=== PATIENT | female | born 1945 | race Caucasian/White ===

== ENCOUNTER → 2016-05-02 | Outpatient (CLI) | payer MEDICARE, OTHER ==
[~2016-05-02] MED LIST: CEPH-507 PO; EST30C; FLT11013; MONT10TA24; OMEP40CA36; VERA240T98; WARF-48
--- OUTSIDE RECORDS SUMMARY | 2016-05-02 12:33 | XMS REPORT | Continuity of Care Document ---
Author Author [facility] Organization [facility] Address Unknown Phone Unavailable Support Name Relationship Address Phone LIZ DELATORRE MD Caregiver [address] [place] [address] STACY IBARRA Next Of Kin [address] [facility] [place] [id number] Insurance Providers Payer Name Policy Number Subscriber Name Relationship s Medicare [id number] Pablo Ibarra 16 Self / Same As Patient Problems No known problems or medical conditions. Medications No known medications. Social History Social History Problem Response Recorded Date/Time Recent Foreign Travel N N 02/02/2014 11:45am Hospital Discharge Instructions No hospital discharge instructions. Plan of Care No plan of care. Functional Status No functional status results. Allergies, Adverse Reactions, Alerts No known allergies. Immunizations No immunization records. Vital Signs No known vital signs results. Results Laboratory Results Test Name Result Units Flags Reference Collection Date/Time Result Date/ Time Comments Prothrombin Time 24.5 SEC H 12.2-14.7 02/02/2014 11:45am 02/02/2014 12: 03pm INR Comment 2.3 H 0.8-1.4 02/02/2014 11:45am 02/02/2014 12:03pm INTERPRETIVE DATA SUGGESTED THERAPEUTIC RANGE FOR INR'S: VENOUS THROMBOSIS, PULMONARY EMBOLISM, OR PREVENTION OF SYSTEMIC EMBOLISM (EG. IN ATRIAL FIBRILLATION): 2.0 - 3.0 MECHANICAL PROSTHETIC HEART VALVES: 2.5 - 3.5* *NOTE: INR'S UP TO 4.5 MAY BE NECESSARY IN SELECTED GROUPS OF HIGH RISK PATIENTS. [employer] CONSENSUS CONFERENCE ON ANTITHROMBOTIC THERAPY (2000). Procedures No known history of procedures. Encounters Encounter Location Date/Time Discharged Recurring Via [facility] 02/02/14 11:44am
[2016-05-02 12:58] LABS: INR 2.4 (0.8-1.4); PROTHROMBIN TIME PATIENT 25.7 SEC (12.2-14.7)
== END ==
LOC: LAB 12:29
PROVIDERS: ATTEND Physician Assistant Medical
DX: I48.91 Unspecified atrial fibrillation (principal)
CPT/HCPCS: 36415; 85610

== ENCOUNTER 2016-08-13 10:15 | Outpatient (RCR) | payer MEDICARE, OTHER ==
--- OUTSIDE RECORDS SUMMARY | 2016-05-22 11:23 | XMS REPORT | Continuity of Care Document ---
Author Author [facility] Organization [facility] Address Unknown Phone Unavailable Support Name Relationship Address Phone LIZ DELATORRE MD Caregiver [address] [place] [address] STACY IBARRA Next Of Kin [address] [facility] [facility] [place] [id number] Insurance Providers Payer Name Policy Number Subscriber Name Relationship s Medicare [id number] Pablo Ibarra 16 Self / Same As [...] SELECTED GROUPS OF HIGH RISK PATIENTS. [employer] CONSENSUS CONFERENCE ON ANTITHROMBOTIC THERAPY (2000). Procedures No known history of procedures. Encounters Encounter Location Date/Time Discharged Recurring [facility] 02/02/14 11:44am
[2016-05-22 11:41] LABS: INR 2.1 (0.8-1.4); PROTHROMBIN TIME PATIENT 22.9 SEC (12.2-14.7)
[2016-06-13 10:37] LABS: INR 2.8 (0.8-1.4); PROTHROMBIN TIME PATIENT 29.7 SEC (12.2-14.7)
[2016-07-18 10:12] LABS: INR 2.3 (0.8-1.4); PROTHROMBIN TIME PATIENT 25.3 SEC (12.2-14.7)
[2016-08-13 10:33] LABS: PROTHROMBIN TIME PATIENT 30.9 SEC (12.2-14.7)
== END 2016-08-20 | disposition home or self-care (01) ==
LOC: LAB 10:15
PROVIDERS: ATTEND Internal Medicine Cardiovascular Disease
DX: Z86.73 Personal history of transient ischemic attack (TIA), and cerebral infarction without residual deficits (principal); Z79.01 Long term (current) use of anticoagulants
CPT/HCPCS: 36415; 85610

== ENCOUNTER → 2016-10-10 | Outpatient (CLI) | payer MEDICARE, OTHER ==
--- NOTE | 2016-10-10 19:34 | Diagnostic Imaging Report ---
Bilateral screening mammogram. The current study was also evaluated with a Computer Aided Detection (CAD) system. INDICATION: Screening. No current complaints stated on the questionnaire. COMPARISON: 10/05/15 FINDINGS: The breasts are composed of heterogeneously dense parenchyma which may decrease mammographic sensitivity. Benign-appearing calcifications are seen. Allowing for technique and positional differences, no suspicious change is seen. IMPRESSION: Dense breasts with no definite change. ACR BI-RADS Category 2: Benign findings. Result letter will be mailed to the patient. Note: At least 10% of breast cancer is not imaged by mammography. Dictated by: Dictated on workstation # [id number]
== END ==
LOC: RAD 09:07
PROVIDERS: ATTEND Nurse Practitioner
DX: Z12.31 Encounter for screening mammogram for malignant neoplasm of breast (principal)
CPT/HCPCS: 77067

== ENCOUNTER → 2017-07-16 | Outpatient (CLI) | payer MEDICARE, OTHER ==
--- NOTE | 2017-07-16 11:13 | Diagnostic Imaging Report ---
Indication: Cough Comparison: 03/21/16 Findings: 2 views of the chest are obtained. Heart size is normal. The pulmonary vessels appear unremarkable. There is no pneumothorax, mediastinal widening or pleural fluid. The lungs are clear. Diaphragms are flattened suggestive of COPD. There are degenerative changes in the spine. Impression: No acute cardiopulmonary abnormalities demonstrated. No interval change from the prior study. Dictated by: Dictated on workstation # [id number]
== END ==
LOC: RAD 09:53
PROVIDERS: ATTEND Internal Medicine
DX: R05 Cough (principal)
CPT/HCPCS: 71046

== ENCOUNTER 2017-09-03 10:55 | Emergency (ER) | payer MEDICARE, OTHER ==
[~2017-09-03] VITALS: Ht 154.9 cm; Wt 56.7 kg
--- OUTSIDE RECORDS SUMMARY | 2017-09-03 11:02 | XMS REPORT | Continuity of Care Document ---
Author Author [facility] Organization [facility] Address Unknown Phone Unavailable Allergies Active Description Code Type Severity Reaction Onset Reported/Identified Relationship to Patient Clinical Status Yes NO KNOWN DRUG ALLERGIES NO KNOWN DRUG ALLERG UNKNOWN Yes No Known Drug Allergies [id number] Drug Allergy Unknown N/A 10/22/2015 Yes CONTRAST DYE CONTRAST DYE Drug Allergy Moderate HEART RACING 05/13/2016 Yes epinephrine epinephrine Drug Allergy Moderate HEART RACING 05/13/2016 Yes No Known Allergies No Known Allergies Drug Allergy Unknown N/A 2016 Medications There is no data. Problems Date Dx Coded Attending Type Code Diagnosis Diagnosed By 12/03/2009 Ot V58.61 12/03/2009 Ot V58.83 03/11/2010 Ot V58.61 03/11/2010 Ot V58.83 07/15/2010 Ot V58.61 ANTICOAGULANTS,LT,CURRENT USE 07/15/2010 Ot V58.83 ENCOUNTER FOR THERAPEUTIC DRUG MONITORIN 10/15/2010 Ot V58.61 ANTICOAGULANTS,LT,CURRENT USE 10/15/2010 Ot V58.83 ENCOUNTER FOR THERAPEUTIC DRUG MONITORIN 01/20/2011 Ot V58.61 ANTICOAGULANTS,LT,CURRENT USE 01/20/2011 Ot V58.83 ENCOUNTER FOR THERAPEUTIC DRUG MONITORIN 05/21/2011 Ot V58.61 ANTICOAGULANTS,LT,CURRENT USE 05/21/2011 Ot V58.83 ENCOUNTER FOR THERAPEUTIC DRUG MONITORIN 09/01/2011 Ot V58.61 ANTICOAGULANTS,LT,CURRENT USE 09/01/2011 Ot V58.83 ENCOUNTER FOR THERAPEUTIC DRUG MONITORIN 12/30/2011 Ot V58.61 ANTICOAGULANTS,LT,CURRENT USE 12/30/2011 Ot V58.83 ENCOUNTER FOR THERAPEUTIC DRUG MONITORIN 05/21/2012 Ot V58.61 ANTICOAGULANTS,LT,CURRENT USE 05/21/2012 Ot V58.83 ENCOUNTER FOR THERAPEUTIC DRUG MONITORIN 08/23/2012 NANDINI OSORIO, LIZ Cornejo Ot V58.61 ANTICOAGULANTS,LT,CURRENT USE 08/23/2012 GALICHIA MD, LIZ P Ot V58.83 ENCOUNTER FOR THERAPEUTIC DRUG MONITORIN 12/25/2012 NANDINI OSORIO, LIZ P Ot V58.61 ANTICOAGULANTS,LT,CURRENT USE 12/25/2012 NANDINI OSORIO, LIZ P Ot V58.83 ENCOUNTER FOR THERAPEUTIC DRUG MONITORIN 04/13/2013 NANDINI OSORIO, LIZ P Ot V58.61 ANTICOAGULANTS,LT,CURRENT USE 04/13/2013 NANDINI OSORIO, LIZ P Ot V58.83 ENCOUNTER FOR THERAPEUTIC DRUG MONITORIN 09/08/2013 NANDINI OSORIO, LIZ P Ot V58.61 ANTICOAGULANTS,LT,CURRENT USE 09/08/2013 NANDINI OSORIO, LIZ P Ot V58.83 ENCOUNTER FOR THERAPEUTIC DRUG MONITORIN 01/31/2014 NANDINI OSORIO, LIZ P Ot V58.61 ANTICOAGULANTS,LT,CURRENT USE 01/31/2014 NANDINI OSORIO, LIZ P Ot V58.83 ENCOUNTER FOR THERAPEUTIC DRUG MONITORIN 05/03/2014 NANDINI OSORIO, LIZ P Ot V58.61 ANTICOAGULANTS,LT,CURRENT USE 05/03/2014 NANDINI OSORIO, LIZ P Ot V58.83 ENCOUNTER FOR THERAPEUTIC DRUG MONITORIN 05/13/2014 NANDINI OSORIO, LIZ P Ot V58.61 05/13/2014 NANDINI OSORIO, LIZ P Ot V58.83 05/16/2014 NANDINI OSORIO, LIZ P Ot V58.61 05/16/2014 NANDINI OSORIO, LIZ P Ot V58.83 05/18/2014 NANDINI OSORIO, LIZ P Ot V58.61 05/18/2014 NANDINI OSORIO, LIZ P Ot V58.83 06/09/2014 NANDINI OSORIO, LIZ P Ot V58.61 06/09/2014 NANDINI SOORIO, LIZ P Ot V58.83 08/11/2014 NANDINI OSORIO, LIZ P Ot V58.61 ANTICOAGULANTS,LT,CURRENT USE 08/11/2014 NANDINI OSORIO, LIZ P Ot V58.83 ENCOUNTER FOR THERAPEUTIC DRUG MONITORIN 08/30/2014 NANDINI OSORIO, LIZ P Ot V58.61 08/30/2014 NANDINI OSORIO, LIZ P Ot V58.83 08/31/2014 NANDINI OSORIO, LIZ P Ot V58.61 08/31/2014 NANDINI OSORIO, LIZ P Ot V58.83 08/31/2014 NANDINI OSORIO, LIZ P Ot V58.61 08/31/2014 NANDINI OSORIO, LIZ P Ot V58.83 09/15/2014 CRISTOBAL OSORIO, DOROTHY Zhao Ot V76.12 10/05/2014 NANDINI OSORIO, LIZ Cornejo Ot V58.61 10/05/2014 NANDNII OSORIO, LIZ P Ot V58.83 10/05/2014 DOROTHY JAIN MD Ot V76.12 11/22/2014 NANDINI OSORIO, LIZ Cornejo Ot V58.61 11/22/2014 NANDINI OSORIO, LIZ P Ot V58.83 11/28/2014 NANDINI OSORIO, LIZ P Ot V58.61 ANTICOAGULANTS,LT,CURRENT USE 11/28/2014 NANDINI OSORIO, LIZ P Ot V58.83 ENCOUNTER FOR THERAPEUTIC DRUG MONITORIN 01/10/2015 NANDINI OSORIO, LIZ P Ot V58.61 01/10/2015 NANDINI OSORIO, LIZ P Ot V58.83 01/10/2015 NANDINI OSORIO, LIZ P Ot V58.61 01/10/2015 NANDINI OSORIO, LIZ P Ot V58.83 01/10/2015 NANDINI OSORIO, LIZ Cornejo Ot Z51.81 01/10/2015 NANDINI OSORIO, LIZ P Ot Z79.01 01/10/2015 NANDINI OSORIO, LIZ P Ot V58.61 01/10/2015 NANDINI OSORIO, LIZ P Ot V58.83 01/11/2015 LIZ DELATORRE MD Ot V58.61 ANTICOAGULANTS,LT,CURRENT USE 01/11/2015 NANDINI OSORIO, LIZ P Ot V58.83 ENCOUNTER FOR THERAPEUTIC DRUG MONITORIN 02/20/2015 Ot V76.12 02/20/2015 Ot V76.12 02/20/2015 Ot V76.12 02/20/2015 IVÁN OSORIO, ALBINA Jo Ot 789.04 02/20/2015 ALBINA MINOR MD Ot 793.82 02/20/2015 ALBINA MINOR MD Ot V76.12 02/20/2015 DOROTHY JAIN MD Ot V76.12 02/20/2015 LIZ DELATORRE MD P Ot V58.61 02/20/2015 NANDINI OSORIO, LIZ P Ot V58.83 02/21/2015 NANDINI OSORIO, LIZ P Ot Z51.81 02/21/2015 LIZ DELATORRE MD Ot Z79.01 04/06/2015 NANDINI OSORIO, LIZ P Ot Z51.81 04/06/2015 LIZ DELATORRE MD Ot Z79.01 05/21/2015 LIZ DELATORRE MD Ot Z51.81 ENCOUNTER FOR THERAPEUTIC DRUG LEVEL MON 05/21/2015 LIZ DELATORRE MD Ot Z79.01 BINDERY MACHINE SETTER (CURRENT) USE OF ANTICOAGULANT 06/12/2015 LIZ DELATORRE MD Ot Z51.81 06/12/2015 LIZ DELATORRE MD Ot Z79.01 06/13/2015 LIZ DELATORRE MD Ot Z51.81 06/13/2015 LIZ DELATORRE MD Ot Z79.01 08/02/2015 LIZ DELATORRE MD Ot Z51.81 ENCOUNTER FOR THERAPEUTIC DRUG LEVEL MON 08/02/2015 LIZ DELATORRE MD Ot Z79.01 MCC (CURRENT) USE OF ANTICOAGULANT 09/10/2015 LIZ DELATORRE MD Ot Z51.81 ENCOUNTER FOR THERAPEUTIC DRUG LEVEL MON 09/10/2015 LIZ DELATORRE MD Ot Z79.01 BINDERY MACHINE SETTER (CURRENT) USE OF ANTICOAGULANT 09/12/2015 LIZ DELATORRE MD Ot Z51.81 ENCOUNTER FOR THERAPEUTIC DRUG LEVEL MON 09/12/2015 LIZ DELATORRE MD Ot Z79.01 BINDERY MACHINE SETTER (CURRENT) USE OF ANTICOAGULANT 10/05/2015 Ot V76.12 OTH SCREEN MAMMO-MALIGN NEOPLASM OF TRAVIS 10/05/2015 Ot V76.12 OTH SCREEN MAMMO-MALIGN NEOPLASM OF TRAVIS 10/05/2015 IVÁN OSORIO, ALBINA Jo Ot 789.04 ABDOMINAL PAIN, LEFT LOWER QUADRANT 10/05/2015 IVÁN OSORIO, ALBINA Jo Ot 793.82 INCONCLUSIVE MAMMOGRAM 10/05/2015 ALBINA MINOR MD Ot V76.12 OTH SCREEN MAMMO-MALIGN NEOPLASM OF TRAVIS 10/05/2015 DOROTHY JAIN MD Ot V76.12 OTH SCREEN MAMMO-MALIGN NEOPLASM OF TRAVIS 10/05/2015 LIZ DELATORRE MD Ot Z51.81 ENCOUNTER FOR THERAPEUTIC DRUG LEVEL MON 10/05/2015 LIZ DELATORRE MD Ot Z79.01 MCC (CURRENT) USE OF ANTICOAGULANT 10/05/2015 LIZ DELATORRE MD Ot Z51.81 ENCOUNTER FOR THERAPEUTIC DRUG LEVEL MON 10/05/2015 LIZ DELATORRE MD Ot Z79.01 BINDERY MACHINE SETTER (CURRENT) USE OF ANTICOAGULANT 10/05/2015 LIZ DELATORRE MD Ot Z51.81 ENCOUNTER FOR THERAPEUTIC DRUG LEVEL MON 10/05/2015 ILZ DELATORRE MD Ot Z79.01 BINDERY MACHINE SETTER (CURRENT) USE OF ANTICOAGULANT 10/06/2015 DOROTHY JAIN MD Ot Z12.31 ENCNTR SCREEN MAMMOGRAM FOR MALIGNANT NE 10/11/2015 DOROTHY JAIN MD Ot Z12.31 ENCNTR SCREEN MAMMOGRAM FOR MALIGNANT NE 10/22/2015 MACHO DO, ARSLAN K Ot I48.2 CHRONIC ATRIAL FIBRILLATION 10/22/2015 MACHO DO, ARSLAN K Ot R04.0 EPISTAXIS 10/22/2015 MACHO DO, ARSLAN K Ot Z79.01 MCC (CURRENT) USE OF ANTICOAGULANT 10/22/2015 Ot V76.12 OTH SCREEN MAMMO-MALIGN NEOPLASM OF TRAVIS 10/22/2015 Ot V76.12 OTH SCREEN MAMMO-MALIGN NEOPLASM OF TRAVIS 10/22/2015 IVÁN OSORIO, ALBINA Jo Ot 789.04 ABDOMINAL PAIN, LEFT LOWER QUADRANT 10/22/2015 IVÁN OSORIO, ALBINA Jo Ot 793.82 INCONCLUSIVE MAMMOGRAM 10/22/2015 IVÁN OSORIO, ALBINA Jo Ot V76.12 OTH SCREEN MAMMO-MALIGN NEOPLASM OF TRAVIS 10/22/2015 DOROTHY JAIN MD Ot V76.12 OTH SCREEN MAMMO-MALIGN NEOPLASM OF TRAVIS 10/22/2015 LIZ DELATORRE MD Ot Z51.81 ENCOUNTER FOR THERAPEUTIC DRUG LEVEL MON 10/22/2015 LIZ DELATORRE MD Ot Z79.01 BINDERY MACHINE SETTER (CURRENT) USE OF ANTICOAGULANT 10/22/2015 DOROTHY JAIN MD Ot Z12.31 ENCNTR SCREEN MAMMOGRAM FOR MALIGNANT NE 10/24/2015 MACHO , ARSLAN K Ot I48.2 CHRONIC ATRIAL FIBRILLATION 10/24/2015 MACHO DO, ARSLAN K Ot R04.0 EPISTAXIS 10/24/2015 MACHO , ARSLAN K Ot Z79.01 BINDERY MACHINE SETTER (CURRENT) USE OF ANTICOAGULANT 10/25/2015 DOROTHY JAIN MD Ot Z12.31 ENCNTR SCREEN MAMMOGRAM FOR MALIGNANT NE 11/24/2015 LIZ DELATORRE MD Ot Z51.81 ENCOUNTER FOR THERAPEUTIC DRUG LEVEL MON 11/24/2015 GALICHIA MD, LIZ P Ot Z79.01 MCC (CURRENT) USE OF ANTICOAGULANT 12/14/2015 NANDINI OSORIO LIZ P Ot Z51.81 ENCOUNTER FOR THERAPEUTIC DRUG LEVEL MON 12/14/2015 NANDINI OSORIO LIZ P Ot Z79.01 BINDERY MACHINE SETTER (CURRENT) USE OF ANTICOAGULANT 01/03/2016 LIZ DELATORRE MD P Ot Z51.81 ENCOUNTER FOR THERAPEUTIC DRUG LEVEL MON 01/03/2016 LIZ DELATORRE MD P Ot Z79.01 BINDERY MACHINE SETTER (CURRENT) USE OF ANTICOAGULANT 01/04/2016 LIZ DELATORRE MD P Ot Z51.81 ENCOUNTER FOR THERAPEUTIC DRUG LEVEL MON 01/04/2016 NANDINI OSORIO LIZ P Ot Z79.01 BINDERY MACHINE SETTER (CURRENT) USE OF ANTICOAGULANT 01/10/2016 LIZ DELATORRE MD P Ot Z51.81 ENCOUNTER FOR THERAPEUTIC DRUG LEVEL MON 01/10/2016 NANDINI OSORIO LIZ P Ot Z79.01 BINDERY MACHINE SETTER (CURRENT) USE OF ANTICOAGULANT 01/10/2016 LIZ DELATORRE MD P Ot Z51.81 ENCOUNTER FOR THERAPEUTIC DRUG LEVEL MON 01/10/2016 LIZ DELATORRE MD P Ot Z79.01 MCC (CURRENT) USE OF ANTICOAGULANT 01/22/2016 NANDINI OSORIO LIZ P Ot Z51.81 ENCOUNTER FOR THERAPEUTIC DRUG LEVEL MON 01/22/2016 NANDINI OSORIO LIZ P Ot Z79.01 BINDERY MACHINE SETTER (CURRENT) USE OF ANTICOAGULANT 02/08/2016 LIZ DELATORRE MD P Ot Z51.81 ENCOUNTER FOR THERAPEUTIC DRUG LEVEL MON 02/08/2016 NANDINI OSORIO LIZ P Ot Z79.01 MCC (CURRENT) USE OF ANTICOAGULANT 02/08/2016 CLARITA MERCEDES GAS METER PROVER Ot E78.2 MIXED HYPERLIPIDEMIA 02/08/2016 CLARITA MERCEDES G[employer] PROVER Ot G47.62 SLEEP RELATED LEG CRAMPS 02/08/2016 CLARITA MERCEDES G[employer] MET[employer] PROVER Ot I48.0 PAROXYSMAL ATRIAL FIBRILLATION 02/08/2016 CLARITA MERCEDES G[employer] PROVER Ot R09.81 NASAL CONGESTION 02/08/2016 CLARITA MERCEDES GAS METER PROVER Ot Z00.00 ENCNTR FOR GENERAL ADULT MEDICAL EXAM 03/01/2016 CLARITA MERCEDES GAS METER PROVER Ot E78.2 MIXED HYPERLIPIDEMIA 03/01/2016 CLARITA MERCEDES GAS METER PROVER Ot G47.62 SLEEP RELATED LEG CRAMPS 03/01/2016 CLARITA MERCEDES GAS METER PROVER Ot I48.0 PAROXYSMAL ATRIAL FIBRILLATION 03/01/2016 DAREN CLARITA Sandro GAS METER PROVER Ot R09.81 NASAL CONGESTION 03/01/2016 DARENSHILACLARITA Sandro GAS METER PROVER Ot Z00.00 ENCNTR FOR GENERAL ADULT MEDICAL EXAM W/ 03/22/2016 BHARGAV PICKENS MD Ot R06.00 DYSPNEA, UNSPECIFIED 04/04/2016 BHARGAV PICKENS MD Ot R06.00 DYSPNEA, UNSPECIFIED 04/06/2016 Renny Aparicio 427.31 ATRIAL FIBRILLATION 04/06/2016 Renny Aparicio 530.81 ESOPHAGEAL REFLUX 04/06/2016 Renny Aparicio 786.59 OTHER CHEST PAIN 04/06/2016 Renny Aparicio I48.91 UNSPECIFIED ATRIAL FIBRILLATION 04/06/2016 Renny Aparicio K21.9 GASTRO-ESOPHAGEAL REFLUX DISEASE WITHOUT ESOPHAGITIS 04/06/2016 Renny Aparicio R07.89 OTHER CHEST PAIN 04/08/2016 LIZ DELATORRE MD Ot Z51.81 ENCOUNTER FOR THERAPEUTIC DRUG LEVEL MON 04/08/2016 LIZ DELATORRE MD Ot Z79.01 MCC (CURRENT) USE OF ANTICOAGULANT 04/09/2016 LIZ DELATORRE MD Ot Z51.81 ENCOUNTER FOR THERAPEUTIC DRUG LEVEL MON 04/09/2016 LIZ DELATORRE MD Ot Z79.01 MCC (CURRENT) USE OF ANTICOAGULANT 04/12/2016 BHARGAV PICKENS MD Ot R06.00 DYSPNEA, UNSPECIFIED 05/01/2016 BHARGAV PICKENS MD Ot R06.00 DYSPNEA, UNSPECIFIED 05/03/2016 NORBERTO MURRIETA PA-C Ot I48.91 UNSPECIFIED ATRIAL FIBRILLATION 05/22/2016 LIZ DELATORRE MD Ot Z51.81 ENCOUNTER FOR THERAPEUTIC DRUG LEVEL MON 05/22/2016 LIZ DELATORRE MD Ot Z79.01 BINDERY MACHINE SETTER (CURRENT) USE OF ANTICOAGULANT 05/22/2016 LIZ DELATORRE MD Ot Z51.81 ENCOUNTER FOR THERAPEUTIC DRUG LEVEL MON 05/22/2016 LIZ DELATORRE MD Ot Z79.01 MCC (CURRENT) USE OF ANTICOAGULANT 05/23/2016 NORBERTO MURRIETA PA-C Ot I48.91 UNSPECIFIED ATRIAL FIBRILLATION 06/17/2016 LIZ DELATORRE MD Ot Z51.81 ENCOUNTER FOR THERAPEUTIC DRUG LEVEL MON 06/17/2016 LIZ DELATORRE MD Ot Z79.01 BINDERY MACHINE SETTER (CURRENT) USE OF ANTICOAGULANT 07/11/2016 LIZ DELATORRE MD Ot Z79.01 BINDERY MACHINE SETTER (CURRENT) USE OF ANTICOAGULANT 07/11/2016 LIZ DELATORRE MD Ot Z86.73 PRSNL HX OF TIA (TIA), AND CEREB INFRC W 08/20/2016 LIZ DELATORRE MD, Ot Z79.01 BINDERY MACHINE SETTER (CURRENT) USE OF ANTICOAGULANT 08/20/2016 LIZ DELATORRE MD, Ot Z86.73 PRSNL HX OF TIA (TIA), AND CEREB INFRC W 10/09/2016 LAUREN HOOK APRN Ot Z12.31 ENCNTR SCREEN MAMMOGRAM FOR MALIGNANT NE 10/09/2016 LAUREN HOOK APRN Ot Z12.31 ENCNTR SCREEN MAMMOGRAM FOR MALIGNANT NE 11/01/2016 LAUREN HOOK APRN Ot Z12.31 ENCNTR SCREEN MAMMOGRAM FOR MALIGNANT NE 07/17/2017 BHARGAV PICKENS MD Ot R05 COUGH 07/17/2017 BHARGAV PICKENS MD Ot R05 COUGH 08/06/2017 BHARGAV PICKENS MD Ot R05 COUGH Procedures There is no data. <section xmlns="urn:hl7-org:v3" xmlns:xsi="http:// www.w3.org/2001/XMLSchema-instance"> <templateId root= "[email or web address]" /> <templateId root= "[email or web address]" /> <code codeSystemName="LOINC" codeSystem= "[email or web address]" code="42340-7" displayName="Results" /> <title>Results< /title> <text> <table> <thead> <tr> <th>Test</th> <th>Result</th> <th>Range</th> </tr> </thead> < tbody> <tr> <th colspan="10">PT panel in platelet poor plasma by coagulation assay - 11/17/15 12:21</th> </tr> <tr> <td >Prothrombin time (PT) in platelet poor plasma by coagulation assay</td> <td>23.3 s</td> <td>12.2-14.7</td> </tr> <tr> <td>INR in platelet poor plasma or blood by coagulation assay</td> < td>2.1 </td> <td>0.8-1.4</td> </tr> <tr> <th colspan="10">PT panel in platelet poor plasma by coagulation assay - 01/09/16 14 :00</th> </tr> <tr> <td>Prothrombin time (PT) in platelet poor plasma by coagulation assay</td> <td>27.1 s</td> <td>12.2-14.7</td> </tr> <tr> <td>INR in platelet poor plasma or blood by coagulation assay</td> <td>2.5 </td> <td> 0.8-1.4</td> </tr> <tr> <th colspan="10">Complete blood count (CBC) with automated white blood cell (WBC) differential - 02/08/16 08:46< /th> </tr> <tr> <td>Blood leukocytes automated count ( number/volume)</td> <td>4.7 10*3/uL</td> <td>4.3-11.0</td> </tr> <tr> <td>Blood erythrocytes automated count (number/ volume)</td> <td>4.47 10*6/uL</td> <td>4.35-5.85</td> < /tr> <tr> <td>Venous blood hemoglobin measurement (mass/volume)< /td> <td>14.3 g/dL</td> <td>11.5-16.0</td> </tr> <tr> <td>Blood hematocrit (volume fraction)</td> <td>42 &#37 ;</td> <td>35-52</td> </tr> <tr> <td>Automated erythrocyte mean corpuscular volume</td> <td>95 [foz_us]</td> <td>80-99</td> </tr> <tr> <td>Automated erythrocyte mean corpuscular hemoglobin (mass per erythrocyte)</td> <td>32 pg</td> <td>25-34</td> </tr> <tr> <td>Automated erythrocyte mean corpuscular hemoglobin concentration measurement (mass/volume)</td> <td>34 g/dL</td> <td>32-36</td> </tr> <tr> < td>Automated erythrocyte distribution width ratio</td> <td>13.6 %</ td> <td>10.0-14.5</td> </tr> <tr> <td>Automated blood platelet count (count/volume)</td> <td>278 10*3/uL</td> <td>130-400</td> </tr> <tr> <td>Automated blood platelet mean volume measurement</td> <td>10.4 [foz_us]</td> <td>7.4- 10.4</td> </tr> <tr> <td>Automated blood neutrophils/100 leukocytes</td> <td>51 %</td> <td>42-75</td> </tr> <tr> <td>Automated blood lymphocytes/100 leukocytes</td> <td>31 %</td> <td>12-44</td> </tr> <tr> <td>Blood monocytes/100 leukocytes</td> <td>15 %</td> <td> 0-12</td> </tr> <tr> <td>Automated blood eosinophils/100 leukocytes</td> <td>2 %</td> <td>0-10</td> </tr> <tr> <td>Automated blood basophils/100 leukocytes</td> < td>1 %</td> <td>0-10</td> </tr> <tr> <td> Blood neutrophils automated count (number/volume)</td> <td>2.4 10*3</td > <td>1.8-7.8</td> </tr> <tr> <td>Blood lymphocytes automated count (number/volume)</td> <td>1.5 10*3</td> <td>1.0-4.0</td> </tr> <tr> <td>Blood monocytes automated count (number/volume)</td> <td>0.7 10*3</td> <td>0.0 -1.0</td> </tr> <tr> <td>Automated eosinophil count</td> <td>0.1 10*3/uL</td> <td>0.0-0.3</td> </tr> <tr > <td>Automated blood basophil count (count/volume)</td> <td> 0.0 10*3/uL</td> <td>0.0-0.1</td> </tr> <tr> < th colspan="10">Comprehensive metabolic panel - 02/08/16 08:46</th> </tr > <tr> <td>Serum or plasma sodium measurement (moles/volume)</td > <td>139 mmol/L</td> <td>135-145</td> </tr> <tr > <td>Serum or plasma potassium measurement (moles/volume)</td> <td>3.9 mmol/L</td> <td>3.6-5.0</td> </tr> <tr> <td>Serum or plasma chloride measurement (moles/volume)</td> <td> 105 mmol/L</td> <td>98-107</td> </tr> <tr> <td> Carbon dioxide</td> <td>29 mmol/L</td> <td>21-32</td> < /tr> <tr> <td>Serum or plasma anion gap determination (moles/ volume)</td> <td>5 mmol/L</td> <td>5-14</td> </tr> <tr> <td>Serum or plasma urea nitrogen measurement (mass/volume)</ td> <td>11 mg/dL</td> <td>7-18</td> </tr> <tr> <td>Serum or plasma creatinine measurement (mass/volume)</td> <td>0.80 mg/dL</td> <td>0.60-1.30</td> </tr> <tr> <td>Serum or plasma urea nitrogen/creatinine mass ratio</td> <td>14 </td> <td>NRG</td> </tr> <tr> <td>Serum or plasma creatinine measurement with calculation of estimated glomerular filtration rate</td> <td>> </td> <td>NRG</td> </tr> <tr> <td>Serum or plasma glucose measurement (mass/volume)</td > <td>102 mg/dL</td> <td>70-105</td> </tr> <tr> <td>Serum or plasma calcium measurement (mass/volume)</td> < td>8.2 mg/dL</td> <td>8.5-10.1</td> </tr> <tr> < td>Serum or plasma total bilirubin measurement (mass/volume)</td> <td> 0.5 mg/dL</td> <td>0.1-1.0</td> </tr> <tr> <td> Serum or plasma alkaline phosphatase measurement (enzymatic activity/volume)</td > <td>61 U/L</td> <td>40-136</td> </tr> <tr> <td>Serum or plasma aspartate aminotransferase measurement (enzymatic activity/volume)</td> <td>15 U/L</td> <td>5-34</td> </ tr> <tr> <td>Serum or plasma alanine aminotransferase measurement (enzymatic activity/volume)</td> <td>22 U/L</td> < td>0-55</td> </tr> <tr> <td>Serum or plasma protein measurement (mass/volume)</td> <td>5.8 g/dL</td> <td>6.4-8.2</ td> </tr> <tr> <td>Serum or plasma albumin measurement ( mass/volume)</td> <td>3.9 g/dL</td> <td>3.2-4.5</td> </ tr> <tr> <th colspan="10">Magnesium - 02/08/16 08:46</th> </tr> <tr> <td>Magnesium</td> <td>2.2 mg/dL</td> <td>1.8-2.4</td> </tr> <tr> <th colspan="10">Lipid 1996 panel - 02/08/16 08:46</th> </tr> <tr> <td>Serum or plasma triglyceride measurement (mass/volume)</td> <td>99 mg/dL</td> <td><150</td> </tr> <tr> <td>Serum or plasma cholesterol measurement (mass/volume)</td> <td>271 mg/dL</td> <td>< 200</td> </tr> <tr> <td>Serum or plasma cholesterol in HDL measurement (mass/volume)</td> <td>78 mg/dL</td> <td>40-60</td> </tr> <tr> <td>Cholesterol in LDL [ mass/volume] in serum or plasma by direct assay</td> <td>172 mg/dL</td > <td>1-129</td> </tr> <tr> <td>Serum or plasma cholesterol in VLDL measurement (mass/volume)</td> <td>20 mg/dL</td> <td>5-40</td> </tr> <tr> <th colspan="10"> THYROID STIMULATING HORMONE - 02/08/16 08:46</th> </tr> <tr> <td>THYROID STIMULATING HORMONE</td> <td>3.03 u[iU]/mL</td> <td>0.35-4.94</td> </tr> <tr> <th colspan="10">PT panel in platelet poor plasma by coagulation assay - 02/08/16 09:02</th> </tr> <tr> <td>Prothrombin time (PT) in platelet poor plasma by coagulation assay</td> <td>24.7 s</td> <td>12.2-14.7</td> </tr> <tr> <td>INR in platelet poor plasma or blood by coagulation assay</td> <td>2.3 </td> <td>0.8-1.4</td> < /tr> <tr> <th colspan="10">PT panel in platelet poor plasma by coagulation assay - 03/18/16 11:31</th> </tr> <tr> <td> Prothrombin time (PT) in platelet poor plasma by coagulation assay</td> <td>27.6 s</td> <td>12.2-14.7</td> </tr> <tr> <td>INR in platelet poor plasma or blood by coagulation assay</td> <td> 2.6 </td> <td>0.8-1.4</td> </tr> <tr> <th colspan="10">Comprehensive Metabolic Panel - 04/06/16 10:08</th> </tr> <tr> <td>Albumin</td> <td>4.0 g/dL</td> <td>3.6 -5.1</td> </tr> <tr> <td>ALP</td> <td>63 U/L</td > <td>35-130</td> </tr> <tr> <td>ALT</td> <td>15 U/L</td> <td>6-45</td> </tr> <tr> <td >Anion Gap</td> <td>16 </td> <td>6-14</td> </tr> <tr> <td>AST</td> <td>17 U/L</td> <td>2-40</td> </tr> <tr> <td>BUN</td> <td>10 mg/dL</td> <td>5-25</td> </tr> <tr> <td>Calcium</td> <td> 8.7 mg/dL</td> <td>8.3-10.4</td> </tr> <tr> <td> Chloride</td> <td>98 mmol/L</td> <td>95-114</td> </tr> <tr> <td>CO2</td> <td>27 mEq/L</td> <td>22-33 </td> </tr> <tr> <td>Creat</td> <td>0.83 mg/dL</ td> <td>0.50-1.50</td> </tr> <tr> <td>eGFR</td> <td>68 mL/min/1.73m2</td> <td>>59</td> </tr> <tr> <td>Globulin</td> <td>2.5 g/dL</td> <td>2.3- 3.5</td> </tr> <tr> <td>Glucose</td> <td>104 mg/ dL</td> <td>70-110</td> </tr> <tr> <td>Osmo</td > <td>285 </td> <td>280-295</td> </tr> <tr> <td>Potassium</td> <td>3.2 mmol/L</td> <td>3.5-5.3</td> </tr> <tr> <td>Sodium</td> <td>138 mmol/L</td> <td>134-148</td> </tr> <tr> <td>TBil</td> <td>0.6 mg/dL</td> <td>0.2-1.2</td> </tr> <tr> <td>TP</td> <td>6.5 g/dL</td> <td>6.0-8.3</td> </ tr> <tr> <th colspan="10">PT panel in platelet poor plasma by coagulation assay - 05/02/16 12:43</th> </tr> <tr> <td> Prothrombin time (PT) in platelet poor plasma by coagulation assay</td> <td>25.7 s</td> <td>12.2-14.7</td> </tr> <tr> <td>INR in platelet poor plasma or blood by coagulation assay</td> <td> 2.4 </td> <td>0.8-1.4</td> </tr> <tr> <th colspan="10">HELICOBACTER UREASE SCREEN - 05/13/16 11:55</th> </tr> <tr> <td>Microbiology</td> <td> </td> <td /> </tr> <tr> <th colspan="10">PT panel in platelet poor plasma by coagulation assay - 05/22/16 11:25</th> </tr> <tr> <td >Prothrombin time (PT) in platelet poor plasma by coagulation assay</td> <td>22.9 s</td> <td>12.2-14.7</td> </tr> <tr> <td>INR in platelet poor plasma or blood by coagulation assay</td> < td>2.1 </td> <td>0.8-1.4</td> </tr> <tr> <th colspan="10">PT panel in platelet poor plasma by coagulation assay - 06/13/16 10 :20</th> </tr> <tr> <td>Prothrombin time (PT) in platelet poor plasma by coagulation assay</td> <td>29.7 s</td> <td>12.2-14.7</td> </tr> <tr> <td>INR in platelet poor plasma or blood by coagulation assay</td> <td>2.8 </td> <td> 0.8-1.4</td> </tr> <tr> <th colspan="10">PT panel in platelet poor plasma by coagulation assay - 07/18/16 09:57</th> </tr> <tr> <td>Prothrombin time (PT) in platelet poor plasma by coagulation assay</td> <td>25.3 s</td> <td>12.2-14.7</td> </tr> <tr> <td>INR in platelet poor plasma or blood by coagulation assay</td> <td>2.3 </td> <td>0.8-1.4</td> < /tr> <tr> <th colspan="10">PT panel in platelet poor plasma by coagulation assay - 08/13/16 10:17</th> </tr> <tr> <td> Prothrombin time (PT) in platelet poor plasma by coagulation assay</td> <td>30.9 s</td> <td>12.2-14.7</td> </tr> <tr> <td>INR in platelet poor plasma or blood by coagulation assay</td> <td> 3.0 </td> <td>0.8-1.4</td> </tr> </tbody> </table> </ text> <entry> <organizer moodCode="EVN" classCode="BATTERY"> < templateId root="[id number]" /> <id nullFlavor="NA" /> <code codeSystem="local" code="24357-1" displayName="PT panel in platelet poor plasma by coagulation assay" /> <statusCode code="completed" /> < component> <observation moodCode="EVN" classCode="OBS"> < templateId root="[id number]" /> <id nullFlavor="NA " /> <code codeSystem="local" code="5902-2" displayName="Prothrombin time (PT) in platelet poor plasma by coagulation assay" /> <statusCode code="completed" /> <effectiveTime value="[id number]" /> < value unit="s" xsi:type="PQ" value="23.3" /> <interpretationCode codeSystem="local" code="" /> <referenceRange> < observationRange> <text>12.2-14.7</text> </ observationRange> </referenceRange> </observation> </ component> <component> <observation moodCode="EVN" classCode="OBS"> <templateId root="[id number]..4.2" /> <id nullFlavor="NA" /> <code codeSystem="local" code="70755-0" displayName= "INR in platelet poor plasma or blood by coagulation assay" /> < statusCode code="completed" /> <effectiveTime value="[id number]" /> <value unit="" xsi:type="PQ" value="2.1" /> < interpretationCode codeSystem="local" code="" /> <referenceRange> <observationRange> <text>0.8-1.4</text> </ observationRange> </referenceRange> </observation> </ component> </organizer> </entry> <entry> <organizer moodCode="EVN" classCode="BATTERY"> <templateId root="[id number]..4.1" /> <id nullFlavor="NA" /> <code codeSystem="local" code="92572-7" displayName="PT panel in platelet poor plasma by coagulation assay" /> < statusCode code="completed" /> <component> <observation moodCode= "EVN" classCode="OBS"> <templateId root="[id number]..22.4.2 " /> <id nullFlavor="NA" /> <code codeSystem="local" code= "5902-2" displayName="Prothrombin time (PT) in platelet poor plasma by coagulation assay" /> <statusCode code="completed" /> < effectiveTime value="662631279612" /> <value unit="s" xsi:type="PQ" value="27.1" /> <interpretationCode codeSystem="local" code="" /> <referenceRange> <observationRange> <text>12.2- 14.7</text> </observationRange> </referenceRange> </ observation> </component> <component> <observation moodCode= "EVN" classCode="OBS"> <templateId root="05.30.840.1.450842.10...4.2 " /> <id nullFlavor="NA" /> <code codeSystem="local" code= "36952-3" displayName="INR in platelet poor plasma or blood by coagulation assay " /> <statusCode code="completed" /> <effectiveTime value= "" /> <value unit="" xsi:type="PQ" value="2.5" /> <interpretationCode codeSystem="local" code="" /> <referenceRange> <observationRange> <text>0.8-1.4</text> </ observationRange> </referenceRange> </observation> </ component> </organizer> </entry> <entry> <organizer moodCode="EVN" classCode="BATTERY"> <templateId root="05.30.840.1.745272.10...4.1" /> <id nullFlavor="NA" /> <code codeSystem="local" code="72930-6" displayName="Complete blood count (CBC) with automated white blood cell (WBC) differential" /> <statusCode code="completed" /> <component> < observation moodCode="EVN" classCode="OBS"> <templateId root= "05.30.840.1.214112.10..22.4.2" /> <id nullFlavor="NA" /> < code codeSystem="local" code="6690-2" displayName="Blood leukocytes automated count (number/volume)" /> <statusCode code="completed" /> < effectiveTime value="857456111960" /> <value unit="10*3/uL" xsi:type= "PQ" value="4.7" /> <referenceRange> <observationRange> <text>4.3-11.0</text> </observationRange> </ referenceRange> </observation> </component> <component> <observation moodCode="EVN" classCode="OBS"> <templateId root= "2.16.840.1.095978.10.20.22.4.2" /> <id nullFlavor="NA" /> < code codeSystem="local" code="789-8" displayName="Blood erythrocytes automated count (number/volume)" /> <statusCode code="completed" /> < effectiveTime value="983644383714" /> <value unit="10*6/uL" xsi:type= "PQ" value="4.47" /> <referenceRange> <observationRange> <text>4.35-5.85</text> </observationRange> </ referenceRange> </observation> </component> <component> <observation moodCode="EVN" classCode="OBS"> <templateId root= "2.16.840.1.689383.10.20.22.4.2" /> <id nullFlavor="NA" /> < code codeSystem="local" code="68412-7" displayName="Venous blood hemoglobin measurement (mass/volume)" /> <statusCode code="completed" /> <effectiveTime value="984425479480" /> <value unit="g/dL" xsi:type="PQ " value="14.3" /> <referenceRange> <observationRange> <text>11.5-16.0</text> </observationRange> </ referenceRange> </observation> </component> <component> <observation moodCode="EVN" classCode="OBS"> <templateId root= "2.16.840.1.718603.10..22.4.2" /> <id nullFlavor="NA" /> < code codeSystem="local" code="66841-0" displayName="Blood hematocrit (volume fraction)" /> <statusCode code="completed" /> <effectiveTime value="404785335752" /> <value unit="%" xsi:type="PQ" value="42" / > <referenceRange> <observationRange> <text>35- 52</text> </observationRange> </referenceRange> </ observation> </component> <component> <observation moodCode= "EVN" classCode="OBS"> <templateId root="216.840.1.075656.10..22.4.2 " /> <id nullFlavor="NA" /> <code codeSystem="local" code="787 -2" displayName="Automated erythrocyte mean corpuscular volume" /> < statusCode code="completed" /> <effectiveTime value="299332799890" /> <value unit="[foz_us]" xsi:type="PQ" value="95" /> < referenceRange> <observationRange> <text>80-99</text> </observationRange> </referenceRange> </observation> </component> <component> <observation moodCode="EVN" classCode= "OBS"> <templateId root="216.840.1.787058.10..22.4.2" /> < id nullFlavor="NA" /> <code codeSystem="local" code="785-6" displayName ="Automated erythrocyte mean corpuscular hemoglobin (mass per erythrocyte)" /> <statusCode code="completed" /> <effectiveTime value= "457379475701" /> <value unit="pg" xsi:type="PQ" value="32" /> <referenceRange> <observationRange> <text>25-34</text > </observationRange> </referenceRange> </observation > </component> <component> <observation moodCode="EVN" classCode="OBS"> <templateId root="216.840.1.511387.10.20.22.4.2" /> <id nullFlavor="NA" /> <code codeSystem="local" code="786-4" displayName="Automated erythrocyte mean corpuscular hemoglobin concentration measurement (mass/volume)" /> <statusCode code="completed" /> <effectiveTime value="088089571267" /> <value unit="g/dL" xsi:type="PQ " value="34" /> <referenceRange> <observationRange> <text>32-36</text> </observationRange> </ referenceRange> </observation> </component> <component> <observation moodCode="EVN" classCode="OBS"> <templateId root= "216.840.1.119957.10...4.2" /> <id nullFlavor="NA" /> < code codeSystem="local" code="788-0" displayName="Automated erythrocyte distribution width ratio" /> <statusCode code="completed" /> < effectiveTime value="361441814961" /> <value unit="%" xsi:type="PQ " value="13.6" /> <referenceRange> <observationRange> <text>10.0-14.5</text> </observationRange> </ referenceRange> </observation> </component> <component> <observation moodCode="EVN" classCode="OBS"> <templateId root= "216.840.1.555929.10.20.22.4.2" /> <id nullFlavor="NA" /> < code codeSystem="local" code="777-3" displayName="Automated blood platelet count (count/volume)" /> <statusCode code="completed" /> < effectiveTime value="762500072867" /> <value unit="10*3/uL" xsi:type= "PQ" value="278" /> <referenceRange> <observationRange> <text>130-400</text> </observationRange> </ referenceRange> </observation> </component> <component> <observation moodCode="EVN" classCode="OBS"> <templateId root= "2.16.840.1.242820.10.20.22.4.2" /> <id nullFlavor="NA" /> < code codeSystem="local" code="05984-8" displayName="Automated blood platelet mean volume measurement" /> <statusCode code="completed" /> < effectiveTime value="336908956164" /> <value unit="[foz_us]" xsi:type= "PQ" value="10.4" /> <referenceRange> <observationRange> <text>7.4-10.4</text> </observationRange> </ referenceRange> </observation> </component> <component> <observation moodCode="EVN" classCode="OBS"> <templateId root= "2.16.840.1.398418.10.20.22.4.2" /> <id nullFlavor="NA" /> < code codeSystem="local" code="770-8" displayName="Automated blood neutrophils/ 100 leukocytes" /> <statusCode code="completed" /> < effectiveTime value="154548593246" /> <value unit="%" xsi:type="PQ " value="51" /> <referenceRange> <observationRange> <text>42-75</text> </observationRange> </ referenceRange> </observation> </component> <component> <observation moodCode="EVN" classCode="OBS"> <templateId root= "216.840.1.782247.10.20.22.4.2" /> <id nullFlavor="NA" /> < code codeSystem="local" code="736-9" displayName="Automated blood lymphocytes/ 100 leukocytes" /> <statusCode code="completed" /> < effectiveTime value="075376835562" /> <value unit="%" xsi:type="PQ " value="31" /> <referenceRange> <observationRange> <text>12-44</text> </observationRange> </ referenceRange> </observation> </component> <component> <observation moodCode="EVN" classCode="OBS"> <templateId root= "216.840.1.331231.10.20.22.4.2" /> <id nullFlavor="NA" /> < code codeSystem="local" code="40614-2" displayName="Blood monocytes/100 leukocytes" /> <statusCode code="completed" /> <effectiveTime value="712591795726" /> <value unit="%" xsi:type="PQ" value="15" / > <interpretationCode codeSystem="local" code="" /> < referenceRange> <observationRange> <text>0-12</text> </observationRange> </referenceRange> </observation> </component> <component> <observation moodCode="EVN" classCode= "OBS"> <templateId root="16.840.1.125879.10.20.22.4.2" /> < id nullFlavor="NA" /> <code codeSystem="local" code="713-8" displayName ="Automated blood eosinophils/100 leukocytes" /> <statusCode code= "completed" /> <effectiveTime value="827446269579" /> <value unit="%" xsi:type="PQ" value="2" /> <referenceRange> < observationRange> <text>0-10</text> </observationRange> </referenceRange> </observation> </component> < component> <observation moodCode="EVN" classCode="OBS"> < templateId root="216.840.1.511392.10.20.22.4.2" /> <id nullFlavor="NA " /> <code codeSystem="local" code="706-2" displayName="Automated blood basophils/100 leukocytes" /> <statusCode code="completed" /> <effectiveTime value="381821489305" /> <value unit="%" xsi: type="PQ" value="1" /> <referenceRange> <observationRange> <text>0-10</text> </observationRange> </ referenceRange> </observation> </component> <component> <observation moodCode="EVN" classCode="OBS"> <templateId root= "16.840.1.942513.10.20.22.4.2" /> <id nullFlavor="NA" /> < code codeSystem="local" code="751-8" displayName="Blood neutrophils automated count (number/volume)" /> <statusCode code="completed" /> < effectiveTime value="572655759837" /> <value unit="10*3" xsi:type="PQ" value="2.4" /> <referenceRange> <observationRange> <text>1.8-7.8</text> </observationRange> </ referenceRange> </observation> </component> <component> <observation moodCode="EVN" classCode="OBS"> <templateId root= "16.840.1.371539.10.20.22.4.2" /> <id nullFlavor="NA" /> < code codeSystem="local" code="731-0" displayName="Blood lymphocytes automated count (number/volume)" /> <statusCode code="completed" /> < effectiveTime value="020550358067" /> <value unit="10*3" xsi:type="PQ" value="1.5" /> <referenceRange> <observationRange> <text>1.0-4.0</text> </observationRange> </ referenceRange> </observation> </component> <component> <observation moodCode="EVN" classCode="OBS"> <templateId root= "2.16.840.1.025600.10.20.22.4.2" /> <id nullFlavor="NA" /> < code codeSystem="local" code="742-7" displayName="Blood monocytes automated count (number/volume)" /> <statusCode code="completed" /> < effectiveTime value="654326769929" /> <value unit="10*3" xsi:type="PQ" value="0.7" /> <referenceRange> <observationRange> <text>0.0-1.0</text> </observationRange> </ referenceRange> </observation> </component> <component> <observation moodCode="EVN" classCode="OBS"> <templateId root= "2.16.840.1.182101.10.20.22.4.2" /> <id nullFlavor="NA" /> < code codeSystem="local" code="711-2" displayName="Automated eosinophil count" / > <statusCode code="completed" /> <effectiveTime value= "045385328956" /> <value unit="10*3/uL" xsi:type="PQ" value="0.1" /> <referenceRange> <observationRange> <text>0.0- 0.3</text> </observationRange> </referenceRange> </ observation> </component> <component> <observation moodCode= "EVN" classCode="OBS"> <templateId root="2.16.840.1.474802.10.20.22.4.2 " /> <id nullFlavor="NA" /> <code codeSystem="local" code="704 -7" displayName="Automated blood basophil count (count/volume)" /> < statusCode code="completed" /> <effectiveTime value="805646392842" /> <value unit="10*3/uL" xsi:type="PQ" value="0.0" /> < referenceRange> <observationRange> <text>0.0-0.1</text> </observationRange> </referenceRange> </observation > </component> </organizer> </entry> <entry> <organizer moodCode= "EVN" classCode="BATTERY"> <templateId root="2.16.840.1.952765.10.20.22.4.1 " /> <id nullFlavor="NA" /> <code codeSystem="local" code="98466-3" displayName="Comprehensive metabolic panel" /> <statusCode code="completed " /> <component> <observation moodCode="EVN" classCode="OBS"> <templateId root="2.16.840.1.418603.10.20.22.4.2" /> <id nullFlavor ="NA" /> <code codeSystem="local" code="2951-2" displayName="Serum or plasma sodium measurement (moles/volume)" /> <statusCode code= "completed" /> <effectiveTime value="274227009605" /> <value unit="mmol/L" xsi:type="PQ" value="139" /> <referenceRange> <observationRange> <text>135-145</text> </ observationRange> </referenceRange> </observation> </ component> <component> <observation moodCode="EVN" classCode="OBS"> <templateId root="2.16.840.1.734153.10.20.22.4.2" /> <id nullFlavor="NA" /> <code codeSystem="local" code="2823-" displayName= "Serum or plasma potassium measurement (moles/volume)" /> <statusCode code="completed" /> <effectiveTime value="304432813667" /> < value unit="mmol/L" xsi:type="PQ" value="3.9" /> <referenceRange> <observationRange> <text>3.6-5.0</text> </ observationRange> </referenceRange> </observation> </ component> <component> <observation moodCode="EVN" classCode="OBS"> <templateId root="2.16.840.1.318067.10..22.4.2" /> <id nullFlavor="NA" /> <code codeSystem="local" code="" displayName= "Serum or plasma chloride measurement (moles/volume)" /> <statusCode code="completed" /> <effectiveTime value="066092801444" /> < value unit="mmol/L" xsi:type="PQ" value="105" /> <referenceRange> <observationRange> <text>98-107</text> </ observationRange> </referenceRange> </observation> </ component> <component> <observation moodCode="EVN" classCode="OBS"> <templateId root="16.840.1.625401.10.20.22.4.2" /> <id nullFlavor="NA" /> <code codeSystem="local" code="2027-12" displayName= "Carbon dioxide" /> <statusCode code="completed" /> < effectiveTime value="810098249084" /> <value unit="mmol/L" xsi:type="PQ " value="29" /> <referenceRange> <observationRange> <text>21-32</text> </observationRange> </ referenceRange> </observation> </component> <component> <observation moodCode="EVN" classCode="OBS"> <templateId root= "2.16.840.1.472033.10.20.22.4.2" /> <id nullFlavor="NA" /> < code codeSystem="local" code="99373-0" displayName="Serum or plasma anion gap determination (moles/volume)" /> <statusCode code="completed" /> <effectiveTime value="764983556484" /> <value unit="mmol/L" xsi: type="PQ" value="5" /> <referenceRange> <observationRange> <text>5-14</text> </observationRange> </ referenceRange> </observation> </component> <component> <observation moodCode="EVN" classCode="OBS"> <templateId root= "216.840.1.670455.10..22.4.2" /> <id nullFlavor="NA" /> < code codeSystem="local" code="3094-0" displayName="Serum or plasma urea nitrogen measurement (mass/volume)" /> <statusCode code="completed" /> <effectiveTime value="721756576005" /> <value unit="mg/dL" xsi:type="PQ" value="11" /> <referenceRange> < observationRange> <text>7-18</text> </observationRange> </referenceRange> </observation> </component> < component> <observation moodCode="EVN" classCode="OBS"> < templateId root="2.16.840.1.022157.10.20.22.4.2" /> <id nullFlavor="NA " /> <code codeSystem="local" code="2160-0" displayName="Serum or plasma creatinine measurement (mass/volume)" /> <statusCode code= "completed" /> <effectiveTime value="215733772394" /> <value unit="mg/dL" xsi:type="PQ" value="0.80" /> <referenceRange> <observationRange> <text>0.60-1.30</text> </ observationRange> </referenceRange> </observation> </ component> <component> <observation moodCode="EVN" classCode="OBS"> <templateId root="216.840.1.994913.10..22.4.2" /> <id nullFlavor="NA" /> <code codeSystem="local" code="3097-3" displayName= "Serum or plasma urea nitrogen/creatinine mass ratio" /> <statusCode code="completed" /> <effectiveTime value="294054531084" /> < value unit="" xsi:type="PQ" value="14" /> <referenceRange> < observationRange> <text>NRG</text> </observationRange> </referenceRange> </observation> </component> < component> <observation moodCode="EVN" classCode="OBS"> < templateId root="216.840.1.072626.10..22.4.2" /> <id nullFlavor="NA " /> <code codeSystem="local" code="30725-5" displayName="Serum or plasma creatinine measurement with calculation of estimated glomerular filtration rate" /> <statusCode code="completed" /> < effectiveTime value="597883366249" /> <value unit="" xsi:type="PQ" value=">" /> <referenceRange> <observationRange> <text>NRG</text> </observationRange> </referenceRange > </observation> </component> <component> <observation moodCode="EVN" classCode="OBS"> <templateId root= "216.840.1.631369.20.22.4.2" /> <id nullFlavor="NA" /> < code codeSystem="local" code="2345-7" displayName="Serum or plasma glucose measurement (mass/volume)" /> <statusCode code="completed" /> <effectiveTime value="933012346142" /> <value unit="mg/dL" xsi:type="PQ " value="102" /> <referenceRange> <observationRange> <text>70-105</text> </observationRange> </ referenceRange> </observation> </component> <component> <observation moodCode="EVN" classCode="OBS"> <templateId root= "2.16.840.1.411150.10..22.4.2" /> <id nullFlavor="NA" /> < code codeSystem="local" code="92994-9" displayName="Serum or plasma calcium measurement (mass/volume)" /> <statusCode code="completed" /> <effectiveTime value="288265399198" /> <value unit="mg/dL" xsi:type="PQ " value="8.2" /> <interpretationCode codeSystem="local" code="" /> <referenceRange> <observationRange> <text>8.5- 10.1</text> </observationRange> </referenceRange> </ observation> </component> <component> <observation moodCode= "EVN" classCode="OBS"> <templateId root="2.16.840.1.787206.10..22.4.2 " /> <id nullFlavor="NA" /> <code codeSystem="local" code= "1974-05" displayName="Serum or plasma total bilirubin measurement (mass/volume) " /> <statusCode code="completed" /> <effectiveTime value= "763894033219" /> <value unit="mg/dL" xsi:type="PQ" value="0.5" /> <referenceRange> <observationRange> <text>0.1-1.0< /text> </observationRange> </referenceRange> </ observation> </component> <component> <observation moodCode= "EVN" classCode="OBS"> <templateId root="216.840.1.968065.10.20.22.4.2 " /> <id nullFlavor="NA" /> <code codeSystem="local" code= "6768-6" displayName="Serum or plasma alkaline phosphatase measurement ( enzymatic activity/volume)" /> <statusCode code="completed" /> <effectiveTime value="538909487848" /> <value unit="U/L" xsi:type="PQ " value="61" /> <referenceRange> <observationRange> <text>40-136</text> </observationRange> </ referenceRange> </observation> </component> <component> <observation moodCode="EVN" classCode="OBS"> <templateId root= "05.30.840.1.698978.10..22.4.2" /> <id nullFlavor="NA" /> < code codeSystem="local" code="192" displayName="Serum or plasma aspartate aminotransferase measurement (enzymatic activity/volume)" /> < statusCode code="completed" /> <effectiveTime value="165022782566" /> <value unit="U/L" xsi:type="PQ" value="15" /> <referenceRange > <observationRange> <text>5-34</text> </ observationRange> </referenceRange> </observation> </ component> <component> <observation moodCode="EVN" classCode="OBS"> <templateId root="16.840.1.658710.10.20.22.4.2" /> <id nullFlavor="NA" /> <code codeSystem="local" code="1742" displayName= "Serum or plasma alanine aminotransferase measurement (enzymatic activity/volume )" /> <statusCode code="completed" /> <effectiveTime value= "875046350773" /> <value unit="U/L" xsi:type="PQ" value="22" /> <referenceRange> <observationRange> <text>0-55</text > </observationRange> </referenceRange> </observation > </component> <component> <observation moodCode="EVN" classCode="OBS"> <templateId root="2.16.840.1.957201.10.20.22.4.2" /> <id nullFlavor="NA" /> <code codeSystem="local" code="2885-2" displayName="Serum or plasma protein measurement (mass/volume)" /> < statusCode code="completed" /> <effectiveTime value="136508384583" /> <value unit="g/dL" xsi:type="PQ" value="5.8" /> < interpretationCode codeSystem="local" code="" /> <referenceRange> <observationRange> <text>6.4-8.2</text> </ observationRange> </referenceRange> </observation> </ component> <component> <observation moodCode="EVN" classCode="OBS"> <templateId root="2.16.840.1.401649.10..22.4.2" /> <id nullFlavor="NA" /> <code codeSystem="local" code="1751-7" displayName= "Serum or plasma albumin measurement (mass/volume)" /> <statusCode code ="completed" /> <effectiveTime value="561997137884" /> <value unit="g/dL" xsi:type="PQ" value="3.9" /> <referenceRange> < observationRange> <text>3.2-4.5</text> </ observationRange> </referenceRange> </observation> </ component> </organizer> </entry> <entry> <organizer moodCode="EVN" classCode="BATTERY"> <templateId root="16.840.1.493978.10..4.1" /> <id nullFlavor="NA" /> <code codeSystem="local" code="21885-3" displayName="Magnesium" /> <statusCode code="completed" /> <component > <observation moodCode="EVN" classCode="OBS"> <templateId root= "05.30.840.1.299604...4.2" /> <id nullFlavor="NA" /> < code codeSystem="local" code="04852-1" displayName="Magnesium" /> < statusCode code="completed" /> <effectiveTime value="718899828346" /> <value unit="mg/dL" xsi:type="PQ" value="2.2" /> < referenceRange> <observationRange> <text>1.8-2.4</text> </observationRange> </referenceRange> </observation > </component> </organizer> </entry> <entry> <organizer moodCode= "EVN" classCode="BATTERY"> <templateId root="05.30.840.1.894895.01.31.22.4.1 " /> <id nullFlavor="NA" /> <code codeSystem="local" code="86578-1" displayName="Lipid 1996 panel" /> <statusCode code="completed" /> < component> <observation moodCode="EVN" classCode="OBS"> < templateId root="16.840.1.570351.10..22.4.2" /> <id nullFlavor="NA " /> <code codeSystem="local" code="2571-8" displayName="Serum or plasma triglyceride measurement (mass/volume)" /> <statusCode code= "completed" /> <effectiveTime value="823730765863" /> <value unit="mg/dL" xsi:type="PQ" value="99" /> <referenceRange> < observationRange> <text><150</text> </ observationRange> </referenceRange> </observation> </ component> <component> <observation moodCode="EVN" classCode="OBS"> <templateId root="2.16.840.1.050822.10.20.22.4.2" /> <id nullFlavor="NA" /> <code codeSystem="local" code="2092-06" displayName= "Serum or plasma cholesterol measurement (mass/volume)" /> <statusCode code="completed" /> <effectiveTime value="753740994852" /> < value unit="mg/dL" xsi:type="PQ" value="271" /> <interpretationCode codeSystem="local" code="" /> <referenceRange> < observationRange> <text>< 200</text> </ observationRange> </referenceRange> </observation> </ component> <component> <observation moodCode="EVN" classCode="OBS"> <templateId root="2.16.840.1.347188.10.20.22.4.2" /> <id nullFlavor="NA" /> <code codeSystem="local" code="2084-12" displayName= "Serum or plasma cholesterol in HDL measurement (mass/volume)" /> < statusCode code="completed" /> <effectiveTime value="095279594515" /> <value unit="mg/dL" xsi:type="PQ" value="78" /> < interpretationCode codeSystem="local" code="" /> <referenceRange> <observationRange> <text>40-60</text> </ observationRange> </referenceRange> </observation> </ component> <component> <observation moodCode="EVN" classCode="OBS"> <templateId root="216.840.1.719435.10..22.4.2" /> <id nullFlavor="NA" /> <code codeSystem="local" code="72136-1" displayName= "Cholesterol in LDL [mass/volume] in serum or plasma by direct assay" /> <statusCode code="completed" /> <effectiveTime value="918005560038" /> <value unit="mg/dL" xsi:type="PQ" value="172" /> < interpretationCode codeSystem="local" code="" /> <referenceRange> <observationRange> <text>1-129</text> </ observationRange> </referenceRange> </observation> </ component> <component> <observation moodCode="EVN" classCode="OBS"> <templateId root="216.840.1.677154.10..22.4.2" /> <id nullFlavor="NA" /> <code codeSystem="local" code="2091-7" displayName= "Serum or plasma cholesterol in VLDL measurement (mass/volume)" /> < statusCode code="completed" /> <effectiveTime value="347884770546" /> <value unit="mg/dL" xsi:type="PQ" value="20" /> < referenceRange> <observationRange> <text>5-40</text> </observationRange> </referenceRange> </observation> </component> </organizer> </entry> <entry> <organizer moodCode="EVN " classCode="BATTERY"> <templateId root="2.16.840.1.508223.10..22.4.1" / > <id nullFlavor="NA" /> <code codeSystem="local" code="TSH" displayName="THYROID STIMULATING HORMONE" /> <statusCode code="completed" / > <component> <observation moodCode="EVN" classCode="OBS"> <templateId root="2.16.840.1.423261.10..22.4.2" /> <id nullFlavor="NA " /> <code codeSystem="local" code="TSH" displayName="THYROID STIMULATING HORMONE" /> <statusCode code="completed" /> < effectiveTime value="796071313830" /> <value unit="u[iU]/mL" xsi:type= "PQ" value="3.03" /> <referenceRange> <observationRange> <text>0.35-4.94</text> </observationRange> </ referenceRange> </observation> </component> </organizer> </entry > <entry> <organizer moodCode="EVN" classCode="BATTERY"> <templateId root="2.16.840.1.800815.10..22.4.1" /> <id nullFlavor="NA" /> <code codeSystem="local" code="34296-9" displayName="PT panel in platelet poor plasma by coagulation assay" /> <statusCode code="completed" /> <component> <observation moodCode="EVN" classCode="OBS"> <templateId root= "2.16.840.1.696341.10.20.22.4.2" /> <id nullFlavor="NA" /> < code codeSystem="local" code="5902-2" displayName="Prothrombin time (PT) in platelet poor plasma by coagulation assay" /> <statusCode code= "completed" /> <effectiveTime value="402854318504" /> <value unit="s" xsi:type="PQ" value="24.7" /> <interpretationCode codeSystem= "local" code="" /> <referenceRange> <observationRange> <text>12.2-14.7</text> </observationRange> </ referenceRange> </observation> </component> <component> <observation moodCode="EVN" classCode="OBS"> <templateId root= "16.840.1.830675.10.22.4.2" /> <id nullFlavor="NA" /> < code codeSystem="local" code="91806-0" displayName="INR in platelet poor plasma or blood by coagulation assay" /> <statusCode code="completed" /> <effectiveTime value="231677746118" /> <value unit="" xsi:type="PQ " value="2.3" /> <interpretationCode codeSystem="local" code="" /> <referenceRange> <observationRange> <text>0.8- 1.4</text> </observationRange> </referenceRange> </ observation> </component> </organizer> </entry> <entry> <organizer moodCode="EVN" classCode="BATTERY"> <templateId root= "16.840.1.259722.10..22.4.1" /> <id nullFlavor="NA" /> <code codeSystem="local" code="41907-4" displayName="PT panel in platelet poor plasma by coagulation assay" /> <statusCode code="completed" /> <component> <observation moodCode="EVN" classCode="OBS"> <templateId root= "05.30.840.1.210783.10.20.22.4.2" /> <id nullFlavor="NA" /> < code codeSystem="local" code="5902-2" displayName="Prothrombin time (PT) in platelet poor plasma by coagulation assay" /> <statusCode code= "completed" /> <effectiveTime value="714902851751" /> <value unit="s" xsi:type="PQ" value="27.6" /> <interpretationCode codeSystem= "local" code="" /> <referenceRange> <observationRange> <text>12.2-14.7</text> </observationRange> </ referenceRange> </observation> </component> <component> <observation moodCode="EVN" classCode="OBS"> <templateId root= "840.1.250281.10.22.4.2" /> <id nullFlavor="NA" /> < code codeSystem="local" code="69464-8" displayName="INR in platelet poor plasma or blood by coagulation assay" /> <statusCode code="completed" /> <effectiveTime value="798307811800" /> <value unit="" xsi:type="PQ " value="2.6" /> <interpretationCode codeSystem="local" code="" /> <referenceRange> <observationRange> <text>0.8- 1.4</text> </observationRange> </referenceRange> </ observation> </component> </organizer> </entry> <entry> <organizer moodCode="EVN" classCode="BATTERY"> <templateId root= "840.1.020127.22.4.1" /> <id nullFlavor="NA" /> <code codeSystem="local" code="ORD3" displayName="Comprehensive Metabolic Panel" /> <statusCode code="completed" /> <component> <observation moodCode="EVN" classCode="OBS"> <templateId root= "840.1.493655.102022.4.2" /> <id nullFlavor="NA" /> < code codeSystem="local" code="Res44" displayName="Albumin" /> < statusCode code="completed" /> <effectiveTime value="780024811018" /> <value unit="g/dL" xsi:type="PQ" value="4.0" /> < referenceRange> <observationRange> <text>3.6-5.1</text> </observationRange> </referenceRange> </observation > </component> <component> <observation moodCode="EVN" classCode="OBS"> <templateId root="216.840.1.973756.10..22.4.2" /> <id nullFlavor="NA" /> <code codeSystem="local" code="Res45" displayName="ALP" /> <statusCode code="completed" /> < effectiveTime value="336812891718" /> <value unit="U/L" xsi:type="PQ" value="63" /> <referenceRange> <observationRange> <text>35-130</text> </observationRange> </referenceRange > </observation> </component> <component> <observation moodCode="EVN" classCode="OBS"> <templateId root= "16.840.1.937353.10..4.2" /> <id nullFlavor="NA" /> < code codeSystem="local" code="Res46" displayName="ALT" /> <statusCode code="completed" /> <effectiveTime value="330768894767" /> < value unit="U/L" xsi:type="PQ" value="15" /> <referenceRange> <observationRange> <text>6-45</text> </ observationRange> </referenceRange> </observation> </ component> <component> <observation moodCode="EVN" classCode="OBS"> <templateId root="05.30.840.1.487054.10.2022.4.2" /> <id nullFlavor="NA" /> <code codeSystem="local" code="Res61" displayName= "Anion Gap" /> <statusCode code="completed" /> <effectiveTime value="457118024104" /> <value unit="" xsi:type="PQ" value="16" /> <interpretationCode codeSystem="local" code="H" /> < referenceRange> <observationRange> <text>6-14</text> </observationRange> </referenceRange> </observation> </component> <component> <observation moodCode="EVN" classCode= "OBS"> <templateId root="05.30.840.1.753021.10..4.2" /> < id nullFlavor="NA" /> <code codeSystem="local" code="Res48" displayName ="AST" /> <statusCode code="completed" /> <effectiveTime value ="137523582675" /> <value unit="U/L" xsi:type="PQ" value="17" /> <referenceRange> <observationRange> <text>2-40</text > </observationRange> </referenceRange> </observation > </component> <component> <observation moodCode="EVN" classCode="OBS"> <templateId root="05.30.840.1.497227.01.31.22.4.2" /> <id nullFlavor="NA" /> <code codeSystem="local" code="Res26" displayName="BUN" /> <statusCode code="completed" /> < effectiveTime value="227034419352" /> <value unit="mg/dL" xsi:type="PQ " value="10" /> <referenceRange> <observationRange> <text>5-25</text> </observationRange> </referenceRange > </observation> </component> <component> <observation moodCode="EVN" classCode="OBS"> <templateId root= "05.30.840.1.180057..22.4.2" /> <id nullFlavor="NA" /> < code codeSystem="local" code="Res5" displayName="Calcium" /> < statusCode code="completed" /> <effectiveTime value="293236356691" /> <value unit="mg/dL" xsi:type="PQ" value="8.7" /> < referenceRange> <observationRange> <text>8.3-10.4</text > </observationRange> </referenceRange> </observation > </component> <component> <observation moodCode="EVN" classCode="OBS"> <templateId root="216.840.1.870652.10.20.22.4.2" /> <id nullFlavor="NA" /> <code codeSystem="local" code="Res21" displayName="Chloride" /> <statusCode code="completed" /> < effectiveTime value="408972678995" /> <value unit="mmol/L" xsi:type="PQ " value="98" /> <referenceRange> <observationRange> <text>95-114</text> </observationRange> </ referenceRange> </observation> </component> <component> <observation moodCode="EVN" classCode="OBS"> <templateId root= "16.840.1.797669.10.20.22.4.2" /> <id nullFlavor="NA" /> < code codeSystem="local" code="Res49" displayName="CO2" /> <statusCode code="completed" /> <effectiveTime value="432929780179" /> < value unit="mEq/L" xsi:type="PQ" value="27" /> <referenceRange> <observationRange> <text>22-33</text> </ observationRange> </referenceRange> </observation> </ component> <component> <observation moodCode="EVN" classCode="OBS"> <templateId root="05.30.840.1.479427.01.31.22.4.2" /> <id nullFlavor="NA" /> <code codeSystem="local" code="Etp502" displayName= "Creat" /> <statusCode code="completed" /> <effectiveTime value="282428156606" /> <value unit="mg/dL" xsi:type="PQ" value="0.83" /> <referenceRange> <observationRange> <text> 0.50-1.50</text> </observationRange> </referenceRange> </observation> </component> <component> <observation moodCode="EVN" classCode="OBS"> <templateId root= "16.840.1.943907.01.31.22.4.2" /> <id nullFlavor="NA" /> < code codeSystem="local" code="Mll261" displayName="eGFR" /> < statusCode code="completed" /> <effectiveTime value="161040268395" /> <value unit="mL/min/1.73m2" xsi:type="PQ" value="68" /> < referenceRange> <observationRange> <text>>59</text> </observationRange> </referenceRange> </observation> </component> <component> <observation moodCode="EVN" classCode ="OBS"> <templateId root="16.840.1.435892.01.31.22.4.2" /> < id nullFlavor="NA" /> <code codeSystem="local" code="Res7" displayName= "Globulin" /> <statusCode code="completed" /> <effectiveTime value="352475506771" /> <value unit="g/dL" xsi:type="PQ" value="2.5" / > <referenceRange> <observationRange> <text>2.3 -3.5</text> </observationRange> </referenceRange> </ observation> </component> <component> <observation moodCode= "EVN" classCode="OBS"> <templateId root="16.840.1.808515.1022.4.2 " /> <id nullFlavor="NA" /> <code codeSystem="local" code= "Res60" displayName="Glucose" /> <statusCode code="completed" /> <effectiveTime value="919761559327" /> <value unit="mg/dL" xsi:type ="PQ" value="104" /> <referenceRange> <observationRange> <text>70-110</text> </observationRange> </ referenceRange> </observation> </component> <component> <observation moodCode="EVN" classCode="OBS"> <templateId root= "216.840.1.657289.01.31.22.4.2" /> <id nullFlavor="NA" /> < code codeSystem="local" code="Res52" displayName="Osmo" /> <statusCode code="completed" /> <effectiveTime value="052602509269" /> < value unit="" xsi:type="PQ" value="285" /> <referenceRange> <observationRange> <text>280-295</text> </ observationRange> </referenceRange> </observation> </ component> <component> <observation moodCode="EVN" classCode="OBS"> <templateId root="16.840.1.551192.10.22.4.2" /> <id nullFlavor="NA" /> <code codeSystem="local" code="Res20" displayName= "Potassium" /> <statusCode code="completed" /> <effectiveTime value="985311889609" /> <value unit="mmol/L" xsi:type="PQ" value="3.2" /> <interpretationCode codeSystem="local" code="L" /> < referenceRange> <observationRange> <text>3.5-5.3</text> </observationRange> </referenceRange> </observation > </component> <component> <observation moodCode="EVN" classCode="OBS"> <templateId root="16.840.1.045645.10.20.22.4.2" /> <id nullFlavor="NA" /> <code codeSystem="local" code="Res19" displayName="Sodium" /> <statusCode code="completed" /> < effectiveTime value="675916577835" /> <value unit="mmol/L" xsi:type="PQ " value="138" /> <referenceRange> <observationRange> <text>134-148</text> </observationRange> </ referenceRange> </observation> </component> <component> <observation moodCode="EVN" classCode="OBS"> <templateId root= "840.1.410872.10..22.4.2" /> <id nullFlavor="NA" /> < code codeSystem="local" code="Res51" displayName="TBil" /> <statusCode code="completed" /> <effectiveTime value="920154339592" /> < value unit="mg/dL" xsi:type="PQ" value="0.6" /> <referenceRange> <observationRange> <text>0.2-1.2</text> </ observationRange> </referenceRange> </observation> </ component> <component> <observation moodCode="EVN" classCode="OBS"> <templateId root="05.30.840.1.446533.10.20.22.4.2" /> <id nullFlavor="NA" /> <code codeSystem="local" code="Res24" displayName= "TP" /> <statusCode code="completed" /> <effectiveTime value= "502303799772" /> <value unit="g/dL" xsi:type="PQ" value="6.5" /> <referenceRange> <observationRange> <text>6.0-8.3</ text> </observationRange> </referenceRange> </ observation> </component> </organizer> </entry> <entry> <organizer moodCode="EVN" classCode="BATTERY"> <templateId root= "05.30.840.1.834340.10.20.22.4.1" /> <id nullFlavor="NA" /> <code codeSystem="local" code="95427-9" displayName="PT panel in platelet poor plasma by coagulation assay" /> <statusCode code="completed" /> <component> <observation moodCode="EVN" classCode="OBS"> <templateId root= "05.30.840.1.210772.10.20.22.4.2" /> <id nullFlavor="NA" /> < code codeSystem="local" code="5902-2" displayName="Prothrombin time (PT) in platelet poor plasma by coagulation assay" /> <statusCode code= "completed" /> <effectiveTime value="220182170860" /> <value unit="s" xsi:type="PQ" value="25.7" /> <interpretationCode codeSystem= "local" code="" /> <referenceRange> <observationRange> <text>12.2-14.7</text> </observationRange> </ referenceRange> </observation> </component> <component> <observation moodCode="EVN" classCode="OBS"> <templateId root= "05.30.840.1.419066.10.20.22.4.2" /> <id nullFlavor="NA" /> < code codeSystem="local" code="03279-4" displayName="INR in platelet poor plasma or blood by coagulation assay" /> <statusCode code="completed" /> <effectiveTime value="433033301259" /> <value unit="" xsi:type="PQ " value="2.4" /> <interpretationCode codeSystem="local" code="" /> <referenceRange> <observationRange> <text>0.8- 1.4</text> </observationRange> </referenceRange> </ observation> </component> </organizer> </entry> <entry> <organizer moodCode="EVN" classCode="BATTERY"> <templateId root= "2.16.840.1.733072.10.20.22.4.1" /> <id nullFlavor="NA" /> <code codeSystem="local" code="HELICO" displayName="HELICOBACTER UREASE SCREEN" /> <statusCode code="completed" /> <component> <observation moodCode ="EVN" classCode="OBS"> <templateId root= "2.16.840.1.798708.10.20.22.4.2" /> <id nullFlavor="NA" /> < code codeSystem="local" code="MB" displayName="Microbiology" /> < statusCode code="completed" /> <effectiveTime value="017231875827" /> <value xsi:type="ST" value="<pre><b>HELICOBACTER UREASE SCREEN</b> See BelowHELICOBACTER UREASE SCREEN(F) Vazquez Date/Time: 05/13/2016 11:55 [place] Date/Time: // :SOURCE: BIOPSYSPEC DESC: See BelowHELICOBACTER UREASE SCREEN(F) Vazquez Date/Time: 05/13/2016 11:55 [place] Date/Time: 05/14/2016 10:30SOURCE: BIOPSYSPEC DESC: [facility]EN[facility] [id number] [place] [address]</pre>" /> <referenceRange> <observationRange> <text /> </observationRange> </referenceRange> </observation> </component> </organizer> </entry> <entry> < organizer moodCode="EVN" classCode="BATTERY"> <templateId root= "16.840.1.589636.10.20.22.4.1" /> <id nullFlavor="NA" /> <code codeSystem="local" code="75801-7" displayName="PT panel in platelet poor plasma by coagulation assay" /> <statusCode code="completed" /> <component> <observation moodCode="EVN" classCode="OBS"> <templateId root= "16.840.1.933300.10..22.4.2" /> <id nullFlavor="NA" /> < code codeSystem="local" code="5902-2" displayName="Prothrombin time (PT) in platelet poor plasma by coagulation assay" /> <statusCode code= "completed" /> <effectiveTime value="468505180445" /> <value unit="s" xsi:type="PQ" value="22.9" /> <interpretationCode codeSystem= "local" code="" /> <referenceRange> <observationRange> <text>12.2-14.7</text> </observationRange> </ referenceRange> </observation> </component> <component> <observation moodCode="EVN" classCode="OBS"> <templateId root= "05.30.840.1.012702.10..22.4.2" /> <id nullFlavor="NA" /> < code codeSystem="local" code="36661-2" displayName="INR in platelet poor plasma or blood by coagulation assay" /> <statusCode code="completed" /> <effectiveTime value="635487938709" /> <value unit="" xsi:type="PQ " value="2.1" /> <interpretationCode codeSystem="local" code="" /> <referenceRange> <observationRange> <text>0.8- 1.4</text> </observationRange> </referenceRange> </ observation> </component> </organizer> </entry> <entry> <organizer moodCode="EVN" classCode="BATTERY"> <templateId root= "216.840.1.882413.10..22.4.1" /> <id nullFlavor="NA" /> <code codeSystem="local" code="44142-8" displayName="PT panel in platelet poor plasma by coagulation assay" /> <statusCode code="completed" /> <component> <observation moodCode="EVN" classCode="OBS"> <templateId root= "216.840.1.661344.10..22.4.2" /> <id nullFlavor="NA" /> < code codeSystem="local" code="5902-2" displayName="Prothrombin time (PT) in platelet poor plasma by coagulation assay" /> <statusCode code= "completed" /> <effectiveTime value="222230514029" /> <value unit="s" xsi:type="PQ" value="29.7" /> <interpretationCode codeSystem= "local" code="" /> <referenceRange> <observationRange> <text>12.2-14.7</text> </observationRange> </ referenceRange> </observation> </component> <component> <observation moodCode="EVN" classCode="OBS"> <templateId root= "16.840.1.713300.10..22.4.2" /> <id nullFlavor="NA" /> < code codeSystem="local" code="32861-6" displayName="INR in platelet poor plasma or blood by coagulation assay" /> <statusCode code="completed" /> <effectiveTime value="194938830145" /> <value unit="" xsi:type="PQ " value="2.8" /> <interpretationCode codeSystem="local" code="" /> <referenceRange> <observationRange> <text>0.8- 1.4</text> </observationRange> </referenceRange> </ observation> </component> </organizer> </entry> <entry> <organizer moodCode="EVN" classCode="BATTERY"> <templateId root= "05.30.840.1.466966.10.20.22.4.1" /> <id nullFlavor="NA" /> <code codeSystem="local" code="10979-8" displayName="PT panel in platelet poor plasma by coagulation assay" /> <statusCode code="completed" /> <component> <observation moodCode="EVN" classCode="OBS"> <templateId root= "05.30.840.1.322412.10.20.22.4.2" /> <id nullFlavor="NA" /> < code codeSystem="local" code="5902-2" displayName="Prothrombin time (PT) in platelet poor plasma by coagulation assay" /> <statusCode code= "completed" /> <effectiveTime value="174509113928" /> <value unit="s" xsi:type="PQ" value="25.3" /> <interpretationCode codeSystem= "local" code="" /> <referenceRange> <observationRange> <text>12.2-14.7</text> </observationRange> </ referenceRange> </observation> </component> <component> <observation moodCode="EVN" classCode="OBS"> <templateId root= "05.30.840.1.242150.10.20.22.4.2" /> <id nullFlavor="NA" /> < code codeSystem="local" code="06496-5" displayName="INR in platelet poor plasma or blood by coagulation assay" /> <statusCode code="completed" /> <effectiveTime value="206072613515" /> <value unit="" xsi:type="PQ " value="2.3" /> <interpretationCode codeSystem="local" code="" /> <referenceRange> <observationRange> <text>0.8- 1.4</text> </observationRange> </referenceRange> </ observation> </component> </organizer> </entry> <entry> <organizer moodCode="EVN" classCode="BATTERY"> <templateId root= "2.16.840.1.538451.10..22.4.1" /> <id nullFlavor="NA" /> <code codeSystem="local" code="17630-4" displayName="PT panel in platelet poor plasma by coagulation assay" /> <statusCode code="completed" /> <component> <observation moodCode="EVN" classCode="OBS"> <templateId root= "2.16.840.1.117548.10..22.4.2" /> <id nullFlavor="NA" /> < code codeSystem="local" code="5902-2" displayName="Prothrombin time (PT) in platelet poor plasma by coagulation assay" /> <statusCode code= "completed" /> <effectiveTime value="433037908202" /> <value unit="s" xsi:type="PQ" value="30.9" /> <interpretationCode codeSystem= "local" code="" /> <referenceRange> <observationRange> <text>12.2-14.7</text> </observationRange> </ referenceRange> </observation> </component> <component> <observation moodCode="EVN" classCode="OBS"> <templateId root= "2.16.840.1.708803.10.20.22.4.2" /> <id nullFlavor="NA" /> < code codeSystem="local" code="25239-9" displayName="INR in platelet poor plasma or blood by coagulation assay" /> <statusCode code="completed" /> <effectiveTime value="335739772471" /> <value unit="" xsi:type="PQ " value="3.0" /> <interpretationCode codeSystem="local" code="" /> <referenceRange> <observationRange> <text>0.8- 1.4</text> </observationRange> </referenceRange> </ observation> </component> </organizer> </entry></section> Encounters ACCT No. Visit Date/Time Discharge Status Pt. Type Provider Facility Loc./Unit Complaint [id number] 07/16/2017 09:53:00 07/16/2017 23:59:59 CLS Outpatient BHARGAV PICKENS MD [facility] RAD COUGH [id number] 10/10/2016 09:07:00 10/10/2016 23:59:59 CLS Outpatient LAUREN HOOK APRN [facility] RAD SCREENING [id number] 08/21/2016 00:15:00 08/21/2016 23:59:59 CLS Preadmit LIZ DELATORRE MD [facility] LAB MED MONITORING [id number] 08/13/2016 10:15:00 08/20/2016 00:01:00 DIS Outpatient LIZ DELATORRE MD [facility] LAB MED MONITORING [id number] 05/02/2016 12:29:00 05/02/2016 23:59:59 CLS Outpatient NORBERTO MURRIETA PA-C [facility] LAB I48.91 [id number] 03/18/2016 11:26:00 04/08/2016 00:01:00 DIS Outpatient LIZ DELATORRE MD [facility] LAB MED MONITORING [id number] 04/03/2016 12:37:00 04/03/2016 23:59:59 CLS Outpatient BHARGAV PICKENS MD [facility] RT DYSPNEA [id number] 03/21/2016 15:29:00 03/21/2016 23:59:59 CLS Outpatient BHARGAV PICKENS MD [facility] RAD DYSPNEA [id number] 02/08/2016 08:39:00 02/08/2016 23:59:59 CLS Outpatient CLARITA MERCEDES [facility] LAB E78.2, Z00.00, RO9.81, I10, I48.0, G47.62 [id number] 11/17/2015 12:21:00 01/03/2016 00:01:00 DIS Outpatient LIZ DELATORRE MD [facility] LAB MED MONITORING [id number] 10/22/2015 12:59:00 10/22/2015 12:59:00 CAN Preadmit ARSLAN PRITCHARD DO [facility] ER [id number] 10/22/2015 07:18:00 10/22/2015 08:41:00 DIS Emergency ARSLAN PRITCHARD DO [facility] ER NOSE BLEEDS [id number] 10/05/2015 09:16:00 10/05/2015 23:59:59 CLS Outpatient DOROTHY JAIN MD [facility] RAD [id number] 08/04/2015 12:51:00 09/10/2015 00:01:00 DIS Outpatient LIZ DELATORRE MD [facility] LAB [id number] 05/02/2015 12:03:00 05/02/2015 23:59:59 CLS Outpatient LIZ DELATORRE MD [facility] LAB [id number] 01/09/2015 14:28:00 01/11/2015 00:01:00 DIS Outpatient LIZ DELATORRE MD [facility] LAB [id number] 11/21/2014 12:28:00 11/28/2014 00:01:00 DIS Outpatient LIZ DELATORRE MD [facility] LAB [id number] 09/13/2014 09:56:00 09/13/2014 23:59:59 CLS Outpatient DOROTHY JAIN MD [facility] RAD [id number] 07/12/2014 15:05:00 08/11/2014 00:01:00 DIS Outpatient LIZ DELATORRE MD [facility] LAB [id number] 02/02/2014 11:44:00 05/03/2014 00:01:00 DIS Outpatient LIZ DELATORRE MD [facility] LAB [id number] 12/14/2013 11:04:00 01/31/2014 00:01:00 DIS Outpatient LIZ DELATORRE MD [facility] LAB [id number] 08/23/2013 08:55:00 09/08/2013 00:01:00 DIS Outpatient LIZ DELATORRE MD [facility] LAB [id number] 08/23/2013 08:32:00 08/23/2013 23:59:59 CLS Outpatient ALBINA MINOR MD [facility] RAD [id number] 04/12/2013 14:51:00 04/13/2013 00:01:00 DIS Outpatient LIZ DELATORRE MD [facility] LAB [id number] 02/10/2013 07:58:00 02/10/2013 23:59:59 CLS Outpatient ALBINA MINOR MD [facility] RAD [id number] 10/21/2012 09:59:00 12/25/2012 00:01:00 DIS Outpatient LIZ DELATORRE MD [facility] LAB [id number] 07/14/2012 14:02:00 08/23/2012 00:01:00 DIS Outpatient LIZ DELATORRE MD [facility] LAB [id number] 10/22/2015 08:43:00 Document Registration [id number] 07/14/2012 13:55:00 Document Registration [id number] 04/16/2012 10:43:00 Document Registration [id number] 12/19/2011 14:00:00 Document Registration [id number] 08/16/2011 10:10:00 Document Registration [id number] 05/24/2011 15:29:00 Document Registration [id number] 05/20/2011 13:47:00 Document Registration [id number] 01/11/2011 13:57:00 Document Registration [id number] 09/14/2010 13:04:00 Document Registration [id number] 06/14/2010 12:03:00 Document Registration [id number] 03/09/2010 16:19:00 Document Registration [id number] 02/23/2010 08:59:00 Document Registration [id number] 10/13/2009 10:36:00 Document Registration [id number] 04/06/2016 10:05:00 04/06/2016 10:50:00 DIS Outpatient [facility] ER [id number] 05/14/2016 20:48:14 ACT Document Registration [id number] 05/13/2016 08:07:00 05/13/2016 12:40:00 DIS Outpatient Dagmar OSORIO, [facility] & ER E.ENDO [id number] 05/13/2016 08:03:00 05/13/2016 08:03:00 DIS Outpatient Emerita OSORIO, [facility] & ER E.RAC
--- NOTE | 2017-09-03 11:47 | ED Head Injury ---
General Chief Complaint: Head/Cervical Problems Stated Complaint: HEAD INJURY Nursing Triage Note: PT AMBULATED TO ROOM 3 PT STATES FELL BACKWARDS AND HIT HEAD ON GROUND, PT DENIES LOC, CO OF SOME NECK DISCOMFORT, PT UNABLE TO TOLERATE C-COLLAR D/T CLOSTERPHOBIA. PT STATES TAKES COUMADIN Source: patient Exam Limitations: no limitations History of Present Illness Date Seen by Provider: September 03, 2017 Time Seen by Provider: 11:41 Initial Comments to ER with reports of a head injury. Patient was outside trimming shrub swearing flip-flops when the back part of her flip-flop got caught on the edge of one of the bricks on her walkway. this caused her to fall backwards landing on her buttock first and then on back striking the back of her head. She states she initially had some neck pain and a headache but both of those symptoms have resolved. There was no loss of consciousness. No headache currently, no dizziness, no nausea or vomiting. She recalls all events. She reports some minimal buttock/tailbone pain. No tingling or paresthesias in either arm or leg. She is concerned because she is on warfarin for atrial fibrillation. Occurred: just prior to arrival Severity: mild Location: occipital Method of Injury: fell Associated Systoms: Headaches; No Nausea/Vomiting Allergies and Home Medications Allergies Coded Allergies: No Known Drug Allergies (Unverified , 10/22/15) Home Medications Cephalexin 500 Mg Capsule, 500 MG PO QID Prescribed by: ARSLAN PRITCHARD on 10/22/15 9738 Patient Home Medication List Home Medication List Reviewed: Yes Review of Systems Constitutional: see HPI, other (lert and oriented GCS 15. Pleasant. No scalp laceration.) Eyes: No Symptoms Reported Ears, Nose, Mouth, Throat: no symptoms reported Respiratory: no symptoms reported Cardiovascular: no symptoms reported Genitourinary: no symptoms reported Musculoskeletal: see HPI, neck pain (initially but none currently. RN attempted to apply rigid cervical collar and patient declined due to claustrophobia. 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 Fractures Nursing Suicide Risk Score: 0 Physical Exam Vital Signs Vital Signs - First Documented 09/03/17 11:15 Temp 97.5 Pulse 92 Resp 18 B/P (MAP) 161/79 (106) Pulse Ox 97 Capillary Refill : Less Than 3 Seconds General Appearance: WD/WN, no apparent distress HEENT: PERRL/EOMI, normal ENT inspection, TMs normal Neck: non-tender, full range of motion; No tender lateral, No tender midline Cardiovascular: regular rate, rhythm, no murmur Respiratory: normal breath sounds, no respiratory distress, no accessory muscle use Gastrointestinal: normal bowel sounds, non tender, soft Extremities: normal range of motion, non-tender Psychiatric: alert, oriented x 3 Crainal Nerves: normal hearing, normal speech, PERRL Motor/Sensory: no motor deficit, no sensory deficit Skin: normal color, warm/dry Tae Coma Score Best Eye Response: (4) Open Spontaneously Best Verbal Response: (5) Oriented Best Motor Response: (6) Obeys Commands Tae Total: 15 Progress/Results/Core Measures Results/Orders Lab Results Laboratory Tests Test 09/03/17 11:34 Range/Units Prothrombin Time 25.2 H 12.2-14.7 SEC INR Comment 2.3 H 0.8-1.4 My Orders Orders - STACY GUSTAFSON APRN Protime With Inr (09/03/17 11:36) Ct Head/Cervical Spine Wo (09/03/17 11:36) Vital Signs/I&O 09/03/17 11:15 Temp 97.5 Pulse 92 Resp 18 B/P (MAP) 161/79 (106) Pulse Ox 97 Blood Pressure Mean: 106 Diagnostic Imaging Diagonstic Imaging: CT Comments NAME: DARRELL FUSandro Hurley MED REC#: [id number] PT STATUS: REG ER : 1945 PHYSICIAN: STACY GUSTAFSON APRN ADMIT DATE: 09/03/17/ER Draft Date of Exam:09/03/17 CT HEAD/CERVICAL SPINE WO CLINICAL INDICATION: Patient tripped in the ER and hit back of head on concrete. Patient has little pain in neck. Patient is on Coumadin. EXAM: Head CT without IV contrast. Axial CT scan of the cervical spine with sagittal and coronal reformations. COMPARISON: CT scan of the head without contrast dated 09/30/2007. FINDINGS: Head CT: There is no evidence of acute cerebral infarct, intracranial hemorrhage, or gross mass effect. The brain parenchymal volume appears appropriate for patient's age. There is normal conroy-white matter distinction. There is no significant midline shift or herniation. There is no evidence of hydrocephalus. The basal cisterns are unremarkable. The skull, extracranial soft tissue, and orbits are unremarkable. The paranasal sinuses are unremarkable. Temporal bones show no significant abnormality. Cervical spine: There is no evidence of acute cervical spine fracture. There is grade 1 anterolisthesis of C3 on C4, C4 on C5, and C7 on T1. There is grade 1 retrolisthesis of C5 on C6. There is a suggestion of diffuse disc bulges at the C4 through C7 levels. There is severe right C5-C6 neural foramen narrowing due to uncinate spurs and moderate left C4-C5 neural foramen narrowing. There is nrrn-qo-seyshizh multilevel central canal narrowing which is worse at the C4 through C6 levels. There is no significant neck soft tissue abnormality. The visualized upper lung villalobos are unremarkable. IMPRESSION: 1: Unremarkable CT scan of brain with no evidence of acute intracranial process. 2: Multilevel cervical spine degenerative disease with no acute cervical spine fracture. There is multilevel degenerative anterolisthesis and retrolisthesis, as described above. Dictated on workstation # [id number] Dict: 09/03/17 1156 Trans: 09/03/17 1207 [facility] [place] [id number] Interpreted by: PAUL METZGER MD Electronically signed by: Departure Communication (Admissions) her is with her,, both are alert and oriented very pleasant. is certainly capable of observing her for any changes in mental status should she develop a delayed intracranial hemorrhage. I'll discuss return precautions with both of them. Impression Primary Impression: Closed head injury Disposition: 01 HOME, SELF-CARE Condition: Stable Departure-Patient Inst. Decision time for Depature: 11:45 Referrals: BHARGAV PICKENS MD (PCP/Family) Primary Care Physician Patient Instructions: Minor Head Injury (DC) Add. Discharge Instructions: 1. You should return promptly to the emergency room for any confusion, headache , nausea or vomiting. All discharge instructions reviewed with patient and/or family. Voiced understanding. STACY GUSTAFSON APRN September 03, 2017 11:47
[2017-09-03 11:56] LABS: INR 2.3 (0.8-1.4); PROTHROMBIN TIME PATIENT 25.2 SEC (12.2-14.7)
--- NOTE | 2017-09-03 12:08 | Diagnostic Imaging Report ---
CLINICAL INDICATION: Patient tripped in the ER and hit back of head on concrete. Patient has little pain in neck. Patient is on Coumadin. EXAM: Head CT without IV contrast. Axial CT scan of the cervical spine with sagittal and coronal reformations. COMPARISON: CT scan of the head without contrast dated 09/30/2007. FINDINGS: Head CT: There is no evidence of acute cerebral infarct, intracranial hemorrhage, or gross mass effect. The brain parenchymal volume appears appropriate for patient's age. There is normal conroy-white matter distinction. There is no significant midline shift or herniation. There is no evidence of hydrocephalus. The basal cisterns are unremarkable. The skull, extracranial soft tissue, and orbits are unremarkable. The paranasal sinuses are unremarkable. Temporal bones show no significant abnormality. Cervical spine: There is no evidence of acute cervical spine fracture. There is grade 1 anterolisthesis of C3 on C4, C4 on C5, and C7 on T1. There is grade 1 retrolisthesis of C5 on C6. There is a suggestion of diffuse disc bulges at the C4 through C7 levels. There is severe right C5-C6 neural foramen narrowing due to uncinate spurs and moderate left C4-C5 neural foramen narrowing. There is vpud-dg-irnsvsst multilevel central canal narrowing which is worse at the C4 through C6 levels. There is no significant neck soft tissue abnormality. The visualized upper lung villalobos are unremarkable. IMPRESSION: 1: Unremarkable CT scan of brain with no evidence of acute intracranial process. 2: Multilevel cervical spine degenerative disease with no acute cervical spine fracture. There is multilevel degenerative anterolisthesis and retrolisthesis, as described above. Dictated by: Dictated on workstation # [id number]
[2017-09-03 12:15] VITALS: BP 161/79
== END 2017-09-03 12:15 | disposition home or self-care (01) ==
LOC: EDUNIT# 10:55 → ER 10:56
DX: S09.90XA Unspecified injury of head, initial encounter (principal); I48.91 Unspecified atrial fibrillation; R40.2142 Coma scale, eyes open, spontaneous, at arrival to emergency department; R40.2252 Coma scale, best verbal response, oriented, at arrival to emergency department; R40.2362 Coma scale, best motor response, obeys commands, at arrival to emergency department; Z90.710 Acquired absence of both cervix and uterus; Z79.01 Long term (current) use of anticoagulants; W01.198A Fall on same level from slipping, tripping and stumbling with subsequent striking against other object, initial encounter
CPT/HCPCS: 36415; 70450; 72125; 85610

== ENCOUNTER → 2017-11-28 | Outpatient (CLI) | payer MEDICARE, OTHER ==
--- NOTE | 2017-11-28 12:46 | Diagnostic Imaging Report ---
INDICATION: Routine screening. COMPARISON: Comparison is made with prior study from 10/10/2016 and 10/05/2015. TECHNIQUE: 2D and 3D bilateral screening mammography was performed with computer-aided detection (CAD) system. FINDINGS: Both breasts are heterogeneously dense, limiting the sensitivity of mammography. There are benign-appearing parenchymal and vascular calcifications bilaterally. No dominant mass or malignant appearing microcalcifications are seen. The axillae are unremarkable. IMPRESSION: No mammographic features suspicious for malignancy are identified. ACR BI-RADS Category 2: Benign findings. Result letter will be mailed to the patient. Note: At least 10% of breast cancer is not imaged by mammography. Dictated by: Dictated on workstation # [id number]
== END ==
LOC: RAD 10:39
PROVIDERS: ATTEND Nurse Practitioner
DX: Z12.31 Encounter for screening mammogram for malignant neoplasm of breast (principal)
CPT/HCPCS: 77067

== ENCOUNTER → 2018-04-22 | Outpatient (CLI) | payer MEDICARE, OTHER ==
--- NOTE | 2018-04-22 15:21 | Diagnostic Imaging Report ---
INDICATION: Cough and COPD. TIME OF EXAM: 3:24 p.m. COMPARISON: Correlation is made with prior study from 07/16/2017. FINDINGS: The heart size is stable. Lungs are hyperinflated consistent with COPD. No infiltrates are detected. No effusion or pneumothorax is seen. IMPRESSION: COPD. No other significant abnormality is detected. Dictated by: Dictated on workstation # [id number]
== END ==
LOC: RAD 14:53
PROVIDERS: ATTEND Internal Medicine
DX: J44.9 Chronic obstructive pulmonary disease, unspecified (principal)
CPT/HCPCS: 71046

== ENCOUNTER 2018-04-27 18:31 | Emergency (ER) | payer MEDICARE, OTHER ==
[~2018-04-27] VITALS: Ht 154.9 cm; Wt 54.4 kg
[2018-04-27] MEDS ORDERED: AMOX-358 PO (19:05)
--- NOTE | 2018-04-27 19:06 | ED Upper Extremity ---
General Stated Complaint: L HAND CAT SCRATCH/ON BLOOD THINNERS Source: patient Exam Limitations: no limitations History of Present Illness Date Seen by Provider: Apr 27, 2018 Time Seen by Provider: 19:02 Initial Comments To ER with warts that her cat scratched the dorsal aspect of the left hand just prior to arrival. She is on blood thinners. She just finished Zithromax 2 days ago for an upper respiratory infection. She has not had her tetanus shot updated in over 5 years. The cat is up-to-date on its vaccines. Onset: just prior to arrival Severity: mild Pain/Injury Location: left hand Allergies and Home Medications Allergies Coded Allergies: No Known Drug Allergies (Unverified , 10/22/15) Home Medications Cephalexin 500 Mg Capsule, 500 MG PO QID Prescribed by: ARSLAN PRITCHARD on 10/22/15 0815 Patient Home Medication List Home Medication List Reviewed: Yes Review of Systems Constitutional: see HPI EENTM: see HPI Respiratory: no symptoms reported Cardiovascular: no symptoms reported Genitourinary: no symptoms reported Musculoskeletal: no symptoms reported Skin: see HPI Psychiatric/Neurological: No Symptoms Reported Past Jatsroe-Hdrwsq-Glmnzi Hx Patient Social History Recent Foreign Travel: No Contact w/Someone Who Travel: No Recent Hopitalizations: Yes (SEE CURRENT LIST) Seasonal Allergies Seasonal Allergies: Yes 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 oz. 56.728551dl; BMI Method:Stated General Appearance: WD/WN, no apparent distress HEENT: PERRL/EOMI, normal ENT inspection Respiratory: no respiratory distress, no accessory muscle use Shoulder: normal inspection, non-tender Elbow/Forearm: normal inspection, non-tender, Left Wrist: Yes normal inspection, Yes non-tender Hand: Left, laceration (there is a 1.5 cm very superficial laceration to the dorsal aspect left hand without active bleeding. This was scrubbed with chlorhexidine/saline solution then irrigated with 100 mL of the same then closed with skin affix glue.) Neurologic/Psychiatric: alert, normal mood/affect, oriented x 3 Skin: normal color, warm/dry There is no extensor tendon injury Progress/Results/Core Measures Results/Orders My Orders Orders - STACY GUSTAFSON APRN, Pertuss(Acell),Tet Adult (Boostrix (04/27/18 19:15) Departure Communication (Admissions) The long half-life of the Zithromax that she just finished should help reduce her chances of Bartonella infection. I'll prescribe Augmentin for 3 days for infection prophylaxis. Impression Primary Impression: Cat scratch Disposition: HOME, SELF-CARE Condition: Stable Departure-Patient Inst. Decision time for Depature: 19:04 Referrals: BHARGAV PICKENS MD (PCP/Family) Primary Care Physician Patient Instructions: Wound Care Add. Discharge Instructions: 1. Allow the glue to follow off on its own in 3-5 days. You may shower allowing water and over the starting tonight. Follow-up with your doctor next week. If you notice any tender painful lymph nodes in her left armpit, swelling or redness in the hand, follow-up with your doctor as you may need another course of antibiotics Scripts Amoxicillin/Potassium Clav (Augmentin 875-125 Tablet) 1 Each Tablet 1 EACH PO BID, #3 TAB Prov: STACY GUSTAFSON APRN 04/27/18 STACY GUSTAFSON APRN Apr 27, 2018 19:06
[2018-04-27 19:10] VITALS: BP 123/66
[2018-04-27] MEDS ORDERED: TETANUS,DIPTH,PERTUSS P/F (BOOSTRIX) 0.5 ML VIAL IM ONE (19:15)
== END 2018-04-27 19:10 | disposition home or self-care (01) ==
LOC: EDUNIT# 18:31 → ER 18:32
DX: S60.512A Abrasion of left hand, initial encounter (principal); I48.91 Unspecified atrial fibrillation; Z23 Encounter for immunization; Z90.710 Acquired absence of both cervix and uterus
CPT/HCPCS: 90715

== ENCOUNTER 2018-06-29 02:33 | Emergency (ER) | payer MEDICARE, OTHER ==
[~2018-06-29] VITALS: Ht 152.4 cm; Wt 56.7 kg
[~2018-06-29 02:33] MED LIST changes: +AMOX-358 PO; +VERA240T14; -VERA240T98
--- OUTSIDE RECORDS SUMMARY | 2018-06-29 02:41 | XMS REPORT | Clinical Summary ---
Author Author [facility] Organization [facility] Address Unknown Phone Unavailable Care Team Providers Care Mechanical Artist Name Role Phone Cesar Zuniga MD PCP Source Comments Some departments are not documenting in the electronic medical record. If you do not see the information that you expected, contact Release of Information in the Health Information Management department at [phone] for further assistance in locating additional records.[facility] Allergies Comments Active Allergy Reactions Severity Noted Date Codeine PALPITATIONS Low 11/21/2017 Iodinated Contrast- Oral PALPITATIONS Low 11/21/2017 And Iv Dye Epinephrine PALPITATIONS Low 11/21/2017 difficulty swallowing, wheezy cough Atorvastatin ANGIOEDEMA High 03/04/2018 difficulty swallowing, wheezing Simvastatin WHEEZING Medium 03/04/2018 Medications End Date Status Medication Sig Dispensed Refills Start Date Active omeprazole DR(+) Take 40 mg by 0 (PRILOSEC) 40 mg capsule mouth daily before breakfast. Active montelukast (SINGULAIR) Take 10 mg by 0 10 mg tablet mouth at bedtime daily. Active potassium chloride SR Take 20 mEq 0 (K-DUR) 20 mEq tablet by mouth daily. Take with a meal and a full glass of water. Active L.acidophilus/B.bifidum,l Take 1 tablet 0 ongum (HEALTHY COLON PO) by mouth daily. Active vit C/vit Take 1 tablet 0 E/lutein/min/omega-3 by mouth (OCUVITE PO) daily. Active triamterene-hydrochloroth Take 1 tablet 0 iazide (MAXZIDE) 37.5-25 by mouth mg tablet every morning. Active famotidine(+) (PEPCID) 40 Take 40 mg by 0 mg tablet mouth at bedtime daily. Active warfarin (COUMADIN) 5 mg Take one 90 tablet 3 tablet tablet by 9 mouth daily. Active verapamil SR (CALAN-SR) Take 240 mg 0 240 mg tablet by mouth daily. Active levalbuterol tartrate(+) Inhale 1 puff 0 (XOPENEX HFA) 45 by mouth into 9 mcg/actuation inhaler the lungs as Needed. Active fluticasone (FLOVENT HFA) Inhale 2 0 110 mcg/actuation inhaler puffs by mouth into the lungs at bedtime daily. Active docusate (COLACE) 100 mg Take 100 mg 0 capsule by mouth twice daily. Active polyethylene glycol 3350 Take 17 g by 0 (MIRALAX) 17 g packet mouth daily. Active pravastatin (PRAVACHOL) Take one 30 capsule 11 20 mg tablet tablet by 9 mouth at bedtime daily. Active Problems Problem Noted Date Atrial fibrillation 12/10/2017 intermediate (current) use of anticoagulants 12/10/2017 GERD (gastroesophageal reflux disease) 12/10/2017 Essential hypertension 12/10/2017 Encounters Care Team Description Date Type Specialty Gillian Fernandez RN 06/26/2018 Anticoagulation Cardiology Sindy Nath Labs Only (INR from 06/26/18 was 2.3, will route to the EP motor pool driver ) 06/26/2018 Documentation Cardiology Gillian Fernandez RN Anticoagulation (question regarding colonoscopy) 06/11/2018 Telephone Cardiology Gillian Fernandez RN 06/11/2018 Anticoagulation Cardiology Sindy Nath Labs Only (INR from 06/11/18 was 1.8 ,will route to the EP motor pool driver) 06/11/2018 Documentation Cardiology Dariana Love RN Follow-up Phone Call 06/08/2018 Telephone Cardiology Oh Pollock RN Anticoagulation (INR 1.9) 06/01/2018 Anticoagulation Cardiology Sindy Nath Labs Only (INR from 06/01/18 was 1.9, will route to the EP motor pool driver) 06/01/2018 Documentation Cardiology Belkys Villalta RN Hemorrhoids 05/26/2018 Telephone Cardiology Neville Santiago MD Paroxysmal Afib (3 month follow up); Cholesterol 05/18/2018 Office Visit Cardiology Jackie Frost RN 05/18/2018 Telephone Cardiology Mary Chavez RN Anticoagulation (INR 3.0 ) 05/12/2018 Anticoagulation Cardiology Jackie Frost RN Anticoagulation (INR 2.2) 04/10/2018 Anticoagulation Cardiology Jackie Frost RN Anticoagulation (drawn today 04/03 - inr 1.4) 04/03/2018 Anticoagulation Cardiology Jackie Frost RN 04/03/2018 Telephone Cardiology from Last 3 Months Family History Medical History Relation Name Comments Aneurysm Father abdominal Heart problem Father Cancer Maternal Aunt skin Cancer-Lung Maternal Aunt Cancer-Uterine Maternal Aunt Macular Degen Maternal Aunt Macular Degen Maternal Grandfather Cancer-Uterine Maternal Grandmother Macular Degen Maternal Uncle Diverticulitis Mother Transient Ischaemic Mother Attack Cancer-Lung Paternal Aunt Hypertension Paternal Aunt Heart Attack Paternal Grandfather Stroke Paternal Grandmother Heart problem Paternal Uncle Hypertension Paternal Uncle COPD Sister Heart Failure Sister Relation Name Status Comments Father (Age 75) Maternal Aunt (Age early 70s) Maternal Grandfather old ages (Age early 90s) Maternal Grandmother (Age early 80s 81) Maternal Uncle MVA (Age 70s) Mother gallbladder surgery (Age 75) Paternal Aunt Paternal Grandfather (Age early 70s) Paternal Grandmother (Age early 80s) Paternal Uncle Sister Alive former heavy drinker and smoker Social History Date Tobacco Use Types Packs/Day Years Used Never Smoker Smokeless Tobacco: Never Used Alcohol Use Drinks/Week oz/Week Comments No Alcohol Habits Answer Date Recorded How often do you have a drink containing alcohol? Never 05/18/2018 How many drinks containing alcohol do you have on Not asked a typical day when you are drinking? How often do you have six or more drinks on one Not asked occasion? Sex Assigned at Date Recorded Not on file Industry Job Start Date Occupation Not on file Not on file Not on file Travel End Travel History Travel Start No recent travel history available. Last Filed Vital Signs Time Taken Vital Sign Reading 05/18/2018 3:15 PM [facility]PICE [facility] Blood Pressure 130/68 05/18/2018 3:15 PM [facility] Pulse 82 - Temperature - - Respiratory Rate - - Oxygen Saturation - - Inhaled Oxygen - Concentration 05/18/2018 3:15 PM [facility]PICE [facility] Weight 57.5 kg (126 lb 11.2 oz) 05/18/2018 3:15 PM [facility]PICE [facility] Height 154.9 cm (5' 1") 05/18/2018 3:15 PM HOSPICE MUSIC THERAP[facility] Body Mass Index 23.94 Plan of Treatment Health Maintenance Due Date Last Done Comments PHYSICAL (COMPREHENSIVE) 12/23/1950 EXAM DTAP/TDAP VACCINES (1 - 12/23/1961 Tdap) BREAST CANCER SCREENING 1983 COLORECTAL CANCER 12/23/1993 SCREENING SHINGLES RECOMBINANT 12/23/1993 VACCINE (1 of 2) OSTEOPOROSIS 12/23/2008 SCREENING/MONITORING PNEUMONIA (PCV13/PPSV23) 12/23/2008 VACCINES (1 of 2 - PCV13) INFLUENZA VACCINE 11/12/2017 Procedures Comments Procedure Name Priority Date/Time Associated Diagnosis PROTIME INR (PT) Routine 06/26/2018 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 INR 2.3 [facility] [place] [place] [facility] Specimen Blood - Blood Narrative Performed At Performing Organization Address City/State/Zipcode Phone Number [facility] [address] [place] [address] 10A * ECG/QRS (05/18/2018 3:27 PM HOSPICE MUSIC THERAP[facility]) QRS DURATION 88 OTHER OUTSIDE LAB Performing Organization Address City/State/Zipcode Phone Number OTHER OUTSIDE LAB * ECG-SCAN (05/18/2018 12:00 AM HOSPICE MUSIC [facility]AP[facility]) Narrative Performed At Ordered by an unspecified provider. * HOME INR (05/12/2018) Only the most recent of 3 results within the time period is included. INR Home 3.0 [facility] Performing Organization Address City/State/Zipcode Phone Number [facility] [address] [place] [address] [phone] 10A from Last 3 Months Insurance Payer Benefit Subscriber ID Type Phone Address Plan / Group MEDICARE MEDICARE xxxxxxxxxxx Medicare PART A AND B CIGNA CIGNA xxxxxxxxxx Medicare MEDICARE SUPPLEMENT Advance Directives Patient has advance care planning documents on file. For more information, please contact: [facility] [address] [place] [address]
--- OUTSIDE RECORDS SUMMARY | 2018-06-29 02:41 | XMS REPORT | Encounter Summary ---
Author Author [facility] Organization [facility] Address Unknown Phone Unavailable Care Team Providers Care Software Project Engineer Name Role Phone Cesar Zuniga MD PCP Encounter Details Care Team Description Date Type Department Gillian Fernandez RN [phone] 06/11/2018 Anticoagulation Cardiovascular Medicine [facility] [place] [phone] [place] [address] Social History Date Tobacco Use Types Packs/Day [...] Travel Start No recent travel history available. as of this encounter Plan of Treatment Not on fileas of this encounter Visit Diagnoses Diagnosis Paroxysmal atrial fibrillation (HCC) Atrial fibrillation detention (current) use of anticoagulants Long-term (current) use of anticoagulants in this encounter
--- OUTSIDE RECORDS SUMMARY | 2018-06-29 02:41 | XMS REPORT | Encounter Summary ---
Author Author [facility] Organization [facility] Address Unknown Phone Unavailable Care Team Providers Care Film Cutter Name Role Phone Cesar Zuniga MD PCP Reason for Visit * Reason Comments Labs Only INR from 06/26/18 was 2.3, will route to the EP latex spooler Encounter Details Care Team Description Date Type Department Sindy Nath Labs Only (INR from 06/26/18 was 2.3, will route to the EP latex spooler ) 06/26/2018 Documentation Cardiovascular Medicine [address] [place] [address] Social History Date Tobacco Use Types Packs/Day [...] on fileas of this encounter Visit Diagnoses Not on filein this encounter
--- OUTSIDE RECORDS SUMMARY | 2018-06-29 02:41 | XMS REPORT | Encounter Summary ---
Author Author [facility] Organization [facility] Address Unknown Phone Unavailable Care Team Providers Care Field Mechanic Name Role Phone Cesar Zuniga MD PCP Encounter Details Care Team Description Date Type Department Gillian Fernandez RN [phone] 06/26/2018 Anticoagulation Cardiovascular Medicine [facility] [place] [facility] [place] [address] [place] [address] Social History Date Tobacco Use Types Packs/Day [...] Diagnosis Paroxysmal atrial fibrillation (HCC) Atrial fibrillation assisted (current) use of anticoagulants Long-term (current) use of anticoagulants in this encounter
--- OUTSIDE RECORDS SUMMARY | 2018-06-29 02:41 | XMS REPORT | Encounter Summary ---
Author Author [facility] Organization [facility] Address Unknown Phone Unavailable Care Team Providers Care Garageman Name Role Phone Cesar Zuniga MD PCP Reason for Visit * Reason Comments Labs Only INR from 06/11/18 was 1.8 ,will route to the EP spool sorter Encounter Details Care Team Description Date Type Department Sindy Nath Labs Only (INR from 06/11/18 was 1.8 ,will route to the EP spool sorter) 06/11/2018 Documentation Cardiovascular Medicine [facility] [place] [address] Social History Date Tobacco Use [...] Treatment Not on fileas of this encounter Procedures Comments Procedure Name Priority Date/Time Associated Diagnosis PROTIME INR (PT) Routine 06/26/2018 Paroxysmal atrial fibrillation (HCC) care home (current) use of anticoagulants PROTIME INR (PT) Routine 06/11/2018 Paroxysmal atrial fibrillation (HCC) watermaster (current) use of anticoagulants in this encounter Results * PROTIME INR (PT) (06/26/2018) INR 2.3 [facility] Specimen Blood - Blood Narrative Performed At Performing Organization Address [facility]/Zipcode Phone Number [facility] [address] [place] [address] 10A * PROTIME INR (PT) (06/11/2018) INR 1.8 [facility] Specimen Blood - Blood Narrative Performed At Performing Organization Address [facility] Phone Number [facility] [address] [place] [address] 10A in this encounter Visit Diagnoses Diagnosis Paroxysmal atrial fibrillation (HCC) Atrial fibrillation watermaster (current) use of anticoagulants Long-term (current) use of anticoagulants in this encounter
--- OUTSIDE RECORDS SUMMARY | 2018-06-29 02:41 | XMS REPORT | Encounter Summary ---
Author Author [facility] Organization [facility] Address Unknown Phone Unavailable Care Team Providers Care Cryptanalyst Name Role Phone Cesar Zuniga MD PCP Reason for Visit * Reason Comments Anticoagulation question regarding colonoscopy Encounter Details Care Team Description Date Type Department Gillian Fernandez RN [phone] Anticoagulation (question regarding colonoscopy) 06/11/2018 Telephone Cardiovascular Medicine [facility] [place] [facility] [place] [address] [phone] [place] [address] Social History Date Tobacco Use Types Packs/Day [...] travel history available. as of this encounter Miscellaneous Notes * Telephone Encounter - Gillian Fernandez RN - 06/11/2018 4:07 PM JEWEL GAUGER I spoke with patient about her INR. She states she is expecting to have a colonoscopy in the near future and asked if she should stop warfarin. Shestates she is asking because she was told by the GI physician's office that she would not have to stop it. I told her that the provider performing procedure typically asks our physicians to hold for a number of days. Based on [id number] patient would need to be bridged or be approved to be off warfarin with plan to resume as soon as the provider approves. She is going to call the GI office back to confirm that they do or do not want her to stop warfarin. I will check with MPE early next week if ok to hold for 5 days, resume as soon as possible after procedure and if she needs bridged. Her [id number] is 3 for age/sex/HTN. L GAUGER in this encounter Plan of Treatment Not on fileas of this encounter Visit Diagnoses Not on filein this encounter
--- OUTSIDE RECORDS SUMMARY | 2018-06-29 02:42 | XMS REPORT | Encounter Summary ---
Author Author [facility] Organization [facility] Address Unknown Phone Unavailable Care Team Providers Care Contracts Manager Name Role Phone Cesar Zuniga MD PCP Reason for Visit * Reason Comments Hemorrhoids Encounter Details Care Team Description Date Type Department Belkys Villalta RN Hemorrhoids 05/26/2018 Telephone Cardiovascular Medicine [facility] [place] [facility] [address] [facility] [address] [address] [place], [place] [address] Social History Date Tobacco Use Types Packs/Day [...] encounter Miscellaneous Notes * Telephone Encounter - Belkys Villalta RN - 05/26/2018 1:33 PM CO DIRECTOR Returned call to patient. Last INR 3.0, she did not adjust dose. She was sick at the time and feels like she has been messed up since then. She struggled with constipation during that time too. She had multiple laxatives , stool softeners, and a hx of hemorrhoids. She is not home currently, she will be back home next Friday. Last she had some light bleeding, then it has continued on/off with the most being on Friday. Which she felt was a significant amount of blood. She did not take a dose of warfarin on Friday night, and has resumed since. She describes it as BRBPR. She also notes she has not been eating well either. She essentially wanted an OK from our office to not take a dose of Warfarin if she has more rectal bleeding. Advised her that of course it is acceptable to hold a dose but that there is also risks with not taking warfarin and that I wanted her to understand both sides of the risk. She verbalized understanding. She has OV with PCP when she returns next week on Friday. She will also get INR on Friday. DIRECTOR * Telephone Encounter - Belkys Villalta RN - 05/26/2018 1:31 PM CO DIRECTOR ----- Message from Caroline Guerrero LPN sent at 05/26/2018 11:16 AM CO DIRECTOR ----- Regarding: MPE- rectal bleeding VM from patient on triage line. She is having some rectal bleeding and needs to know who to manger her Warfarin. Call back on cell. DIRECTOR in this encounter Plan of Treatment Not on fileas of this encounter Visit Diagnoses Not on filein this encounter
--- OUTSIDE RECORDS SUMMARY | 2018-06-29 02:42 | XMS REPORT | Encounter Summary ---
Author Author [facility] Organization [facility] Address Unknown Phone Unavailable Care Team Providers Care Non Destructive Evaluation Technician Name Role Phone Cesar Zuniga MD PCP Reason for Visit * Reason Comments Follow-up Phone Call Encounter Details Care Team Description Date Type Department Dariana Love RN Follow-up Phone Call 06/08/2018 Telephone Cardiovascular Medicine [facility] [place], [place] [id number] Social History Date Tobacco Use Types Packs/Day [...] encounter Miscellaneous Notes * Telephone Encounter - Dariana Love RN - 06/08/2018 8:19 AM FIRE WATCHER Patient had a procedure for cataracts in April and has had some complications since then. Patient was asked to take [place]-3 for dry eyes. She realizes this thins her blood and wanted to check if she should take this, but she is hesitant regardless. We discussed that this can increase her INR, so if she starts it, we will need more frequent INRs. Patient states that she does not plan to start it right now. Patient has no further concerns or questions at this time. WATCHER * Telephone Encounter - Dariana Love RN - 06/08/2018 8:19 AM FIRE WATCHER ----- Message from Caroline Guerrero LPN sent at 06/08/2018 8:03 AM FIRE WATCHER ----- Regarding: MPE- med ? VM from patient on triage line Friday at 10:55pm. Said that her eye doctor wants her to take a medication that might interfere with her other medications. Call back at home. WATCHER in this encounter Plan of Treatment Not on fileas of this encounter Visit Diagnoses Not on filein this encounter
--- OUTSIDE RECORDS SUMMARY | 2018-06-29 02:42 | XMS REPORT | Encounter Summary ---
Author Author [facility] Organization [facility] Address Unknown Phone Unavailable Care Team Providers Care Land Leveler Name Role Phone Cesar Zuniga MD PCP Encounter Details Care Team Description Date Type Department Jackie Frost RN 05/18/2018 Telephone Cardiovascular Medicine [address] [place] [address] Social History Date Tobacco Use [...] encounter Miscellaneous Notes * Telephone Encounter - Jackie Frost RN - 05/18/2018 9:29 AM SCHOOL SECRETARY message was left on Friday - running around and unsure if she took her warfarin or extra dose. she plans to use a pill box with am and pm in the future will have her inr in the am she has an appt this afternoon with Dr Santiago at 3:15 pm advised in future if urgent to call the main number: [phone] OL SECRETARY * Telephone Encounter - Jackie Frost RN - 05/18/2018 9:28 AM SCHOOL SECRETARY ----- Message from Caroline Guerrero LPN sent at 05/18/2018 7:46 AM SCHOOL SECRETARY ----- Regarding: MPE- med issue VM from on triage line Friday at 9:18am Said that she accidentally took extra Coumadin 2 mg that am. What should she do. Call either # in chart. OL SECRETARY in this encounter Plan of Treatment Not on fileas of this encounter Visit Diagnoses Not on filein this encounter
--- OUTSIDE RECORDS SUMMARY | 2018-06-29 02:42 | XMS REPORT | Encounter Summary ---
Author Author [facility] Organization [facility] Address Unknown Phone Unavailable Care Team Providers Care Landscape Laborer Name Role Phone Cesar Zuniga MD PCP Reason for Referral * (Routine) Referred By Contact Referred To Contact Status Reason Specialty Diagnoses / Procedures Neville Santiago MD [address] [place] [phone] New Request Procedures REQUEST FOR CARDIOLOGY APPOINTMENT * (Routine) Referred By Contact Referred To Contact Status Reason Specialty Diagnoses / Procedures Neville Santiago MD [address] [place] [phone] New Request Procedures REQUEST FOR CARDIOLOGY APPOINTMENT Reason for Visit * Reason Comments Paroxysmal Afib 3 month follow up Cholesterol * (Routine) Referred By Contact Referred To Contact Status Reason Specialty Diagnoses / Procedures Neville Santiago MD [address] [place] [address] New Request Procedures REQUEST FOR CARDIOLOGY APPOINTMENT Encounter Details Care Team Description Date Type Department Neville Santiago MD [address] [place] [address] [phone] Paroxysmal Afib (3 month follow up); Cholesterol 05/18/2018 Office Visit Cardiovascular Medicine [facility] [place] [facility] [address] [place] [address] Social History Date Tobacco Use Types Packs/Day [...] travel history available. as of this encounter Last Filed Vital Signs Time Taken Vital Sign Reading 05/18/2018 3:15 PM CLERICAL TRANSCRIBER Blood Pressure 130/68 05/18/2018 3:15 PM CLERICAL TRANSCRIBER Pulse 82 - Temperature - - Respiratory Rate - - Oxygen Saturation - - Inhaled Oxygen - Concentration 05/18/2018 3:15 PM CLERICAL TRANSCRIBER Weight 57.5 kg (126 lb 11.2 oz) 05/18/2018 3:15 PM CLERICAL TRANSCRIBER Height 154.9 cm (5' 1") 05/18/2018 3:15 PM CLERICAL TRANSCRIBER Body Mass Index 23.94 in this encounter Patient Instructions * Patient Instructions* Gillian Fernandez RN - 05/18/2018 3:15 PM CLERICAL TRANSCRIBER Pravachol 20mg daily - Call [phone] and leave a message for Nara or Jackie We should get a follow up lipid profile in about 8 weeks. ICAL TRANSCRIBER in this encounter Progress Notes * Neville Santiago MD - 05/18/2018 3:15 PM CLERICAL TRANSCRIBER Date of Service: 05/18/2018 Mary Ibarra is a 72 y.o. female. HPI I had the pleasure of seeing your patient Mary Ibarra (Jo) ("fa-kasey") in the [facility] as a part of the [facility] [place] office today for follow up regarding her Paroxysmal Atrial Fibrillation. She had beenfollowed by her primary television parts tester, Dr. Thompson,although apparently there were some changes that he may have retired. She was therefore referred by her primary care physician. She is close friends with Vale Rivera. Ms. Ibarra is an exceptionally pleasant 72 y.o. female, who is accompanied by her equally pleasant spouse. 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 Her spouse practiced Law at one point, but most recently owned and operated a [employer]. The past medical history and data below has been reviewed and updated by me with new events for today's visit. Her PMHx briefly includes:Paroxysmal atrial Fibrillation,Zero Cardiac Calcium Scoring05/13/16t OSH; Echocardiogram 04/20/16 OSH; normal EF at 70%; Grade 2 Diastolic Dysfunction; Normal Size Atria; Normal PAP; Hypertension; GERD; RAD. To Review Detailed Updated PMHx see below the ASSESSMENT AND PLAN section of this note. She STATES she had 2-3 days of intermittent irregular beats/palpitations occurring within last week or so. However this was when she was still recovering from her recent acute sinus infection and influenza. Outside of these few days, she states she has been doing well and has not had significant palpitations or symptoms suggestive of recurrent atrial fibrillation. In fact, she is still recovering from a recent sinus infection and influenza virus. She states she noted some hypotension on the increased dose of Verapamil, so she returned to her prior dosing. She also notes that she stopped her Zocor secondary to intolerance issues. She otherwise claims compliance with her medications. She denies any bleeding issues-blood in the urine, blood in the stool, tolerating anticoagulation without obvious issue. She denies any chest discomfort, shortness of breath, lightheadedness, near syncope or syncope, PND or orthopnea. FHx, SHx and ROS documented and I have reviewed, with some pertinent features to include: No FHx of premature CAD. She is a Non-Smoker. Most pertinent ROS is included/discussed throughout the note, e.g. HPI and A/P. ASSESSMENT AND PLAN: -- Paroxysmal Atrial Fibrillation -- Brief, Paroxysmal ATACH -- Symptomatic PACs -- Anticoagulation -- Hyperlipidemia -- Zero Cardiac Calcium Scoring05/13/16t OSH -- Echocardiogram 04/20/16 OSH-Normal EF at 70%, Grade 2 Diastolic Dysfunction, normal size atria, normal PAP -- Hypertension -- GERD -- RAD Ms. Ibarra, outside of her sinus infection and flu, has actually been doing well from the cardiovascular standpoint. Her rhythms appear to be reasonably controlled. She does not wish to make any changes at this time. She is tolerating her anticoagulation well without any bleeding issues. Regarding her lipids, she has now had intolerance to Lipitor and Zocor. We will switch to a water-soluble statin and see if she does any better with that. The intolerance, however, was not the typical myalgias. We will start her on pravastatin as described below. She should continue to monitor her pulse and blood pressure on a daily basis. PLAN: -- We will initiate Pravachol 10 mg daily for lipid control -- Since she is on anticoagulation, I have asked her to monitor for any signs or symptoms of bleeding, including blood in the stool or urine, etc and to contact her PMD if any occurs. -- I asked her to call our office with any new or recurrent symptoms. Ms. Ibarra was educated regarding plan of care. She was instructed to call our office with any questions or concerns, as well as to notify us of any new or worsening symptoms. She verbalized understanding. I appreciate the opportunity to participate in the care of your patient. Please do not hesitate to contact me directly if you have any questions or further insights into her care. I have scheduled her follow-up with me in 12 month(s). DETAILED UPDATED PMHx: Addendum: labs done demonstrated an INR of 2.2, normal TSH, magnesium of 2.2, potassium of 4. Normal LFTs. Increased lipids with an LDL of 154, HDL of 99, total cholesterol 283. -- 12/10/17: Initial EP Consultation: ELR was issued for pts increasing symptoms suggestive of more likely premature beats but possibly episodes of AFIB or atrial tachycardia. -- 01/21/18: Event Monitor: 22 transmissions sent. From 12/16/17 through . IMPRESSION: Abnormal ELR with approximately 5 episodes of very brief (less than 6 seconds) Atrial Tachycardia, no A. fib, intermittent PACs, symptoms often correlated with sinus rhythm or sinus rhythm with PACs. -- 02/04/18: OV (Dr. Santiago): We increased her Verapamil from 240 mg daily to 360 mg daily to help control her ATACH. We also initiated Zocor 10 mg daily for lipid control. Her BP at times was getting low with the increased Verapamil, therefore, we returned to 240 mg daily. -- 02/27/18: Pt stopped Zocor due to intolerance Vitals: 05/18/18 1515 BP: 130/68 Pulse: 82 Weight: 57.5 kg (126 lb 11.2 oz) Height: 1.549 m (5' 1") Body mass index is 23.94 kg/m. 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 HENT: Positive for congestion. Eyes: Positive for visual halos. Cardiovascular: Positive for irregular heartbeat. Respiratory: Positive for cough and wheezing. Endocrine: Negative. Hematologic/Lymphatic: Negative. Skin: Negative. Musculoskeletal: Positive for muscle cramps and stiffness. Gastrointestinal: Positive for constipation and hemorrhoids. Genitourinary: Negative. Neurological: Negative. Psychiatric/Behavioral: Negative. Allergic/Immunologic: Negative. Physical Exam Constitutional: She is in no acute distress, resting comfortably. Skin/Integument: Warm and dry. Eyes: PERRL, sclera are non-icteric and no xanthelasmas noted. ENT: Hearing is intact, Oropharynx is clear and moist. Heme/Lym/Immun: Supple neck, without thyromegaly. Respiratory-Pulmonary/Chest: Effort normal and breath sounds normal. No respiratory distress or accessory muscle use. No obvious tracheal deviation. Clear to auscultation bilaterally. Cardiovascular: No evidence of increased jugular venous pressure, carotids are 2+/4+ equal bilaterally, without obvious bruit. Regular rhythm, S1, S2. I do not appreciate any significant murmur today. No heaves, thrills or rubs. Musc/Skeletal-Extremities: Without significant peripheral edema. With what appears to be full ROM. Neuro: Patient is alert and oriented to person, place, and time. Psych: Patient does not appear anxious, she appears appropriate, with normal non-pressured speech and what appears to be appropriate judgement Cardiovascular Studies ECG today demonstrates NSR at 82 bpm. With an isolated PAC. Problems Addressed Today Encounter Diagnoses Name Primary? Hypertrophic cardiomegaly Yes PVC's (premature ventricular contractions) Hyperlipidemia, unspecified hyperlipidemia type Current Medications (including today's revisions) docusate (COLACE) 100 mg capsule Take 100 mg by mouth twice daily. famotidine(+) (PEPCID) 40 mg tablet Take 40 mg by mouth at bedtime daily. fluticasone (FLOVENT HFA) 110 mcg/actuation inhaler Inhale 2 puffs by mouth into the lungs at bedtime daily. L.acidophilus/B.bifidum,longum (HEALTHY COLON PO) Take 1 tablet by mouth daily. levalbuterol tartrate(+) (XOPENEX HFA) 45 mcg/actuation inhaler Inhale 1 puff by mouth into the lungs as Needed. montelukast (SINGULAIR) 10 mg tablet Take 10 mg by mouth at bedtime daily. omeprazole DR(+) (PRILOSEC) 40 mg capsule Take 40 mg by mouth daily before breakfast. polyethylene glycol 3350 (MIRALAX) 17 g packet Take 17 g by mouth daily. potassium chloride SR (K-DUR) 20 mEq tablet Take 20 mEq by mouth daily. Take with a meal and a full glass of water. pravastatin (PRAVACHOL) 20 mg tablet Take one tablet by mouth at bedtime daily. triamterene-hydrochlorothiazide (MAXZIDE) 37.5-25 mg tablet Take 1 tablet by mouth every morning. verapamil SR (CALAN-SR) 240 mg tablet Take 240 mg by mouth daily. vit C/vit E/lutein/min/omega-3 (OCUVITE PO) Take 1 tablet by mouth daily. warfarin (COUMADIN) 5 mg tablet Take one tablet by mouth daily. Documentation recorded by Valentin Haas, acting as scribe for Neville Santiago M.D. ICAL TRANSCRIBER in this encounter Plan of Treatment Order Schedule Name Priority Associated Diagnoses Ordered: 05/18/2018 ECG 12-LEAD Routine Hypertrophic cardiomegaly PVC's (premature ventricular contractions) Expected: 07/13/2018 (Approximate), Expires: 05/18/2019 LIPID PROFILE Routine Hyperlipidemia, unspecified hyperlipidemia type as of this encounter Procedures Comments Procedure Name Priority Date/Time Associated Diagnosis ECG/QRS Routine 05/18/2018 3:27 PM CLERICAL TRANSCRIBER ECG-SCAN 05/18/2018 12:00 AM CLERICAL TRANSCRIBER in this encounter Results * ECG/QRS (05/18/2018 3:27 PM CLERICAL TRANSCRIBER) QRS DURATION 88 OTHER OUTSIDE LAB Performing Organization Address City/State/Zipcode Phone Number OTHER OUTSIDE LAB * ECG-SCAN (05/18/2018 12:00 AM CLERICAL TRANSCRIBER) Narrative Performed At Ordered by an unspecified provider. in this encounter Visit Diagnoses Diagnosis Hypertrophic cardiomegaly - Primary PVC's (premature ventricular contractions) Other premature beats Hyperlipidemia, unspecified hyperlipidemia type in this encounter
--- OUTSIDE RECORDS SUMMARY | 2018-06-29 02:42 | XMS REPORT | Encounter Summary ---
Author Author [facility] Organization [facility] Address Unknown Phone Unavailable Care Team Providers Care Criminal Research Specialist Name Role Phone Cesar Zuniga MD PCP Reason for Visit * Reason Comments Labs Only INR from 06/01/18 was 1.9, will route to the EP pool player Encounter Details Care Team Description Date Type Department Sindy Nath Labs Only (INR from 06/01/18 was 1.9, will route to the EP pool player) 06/01/2018 Documentation Cardiovascular Medicine [facility] [place] [address] Social History Date Tobacco Use [...] Date/Time Associated Diagnosis PROTIME INR (PT) Routine 06/01/2018 Paroxysmal atrial fibrillation (HCC) group home (current) use of anticoagulants in this encounter Results * PROTIME INR (PT) (06/01/2018) INR 1.9 OTHER OUTSIDE LAB Specimen Blood - Blood Narrative Performed At Performing Organization Address City/State/Zipcode Phone Number OTHER OUTSIDE LAB in this encounter Visit Diagnoses Diagnosis Paroxysmal atrial fibrillation (HCC) Atrial fibrillation manager intermediate (current) use of anticoagulants Long-term (current) use of anticoagulants in this encounter
--- OUTSIDE RECORDS SUMMARY | 2018-06-29 02:42 | XMS REPORT | Encounter Summary ---
Author Author [facility] Organization [facility] Address Unknown Phone Unavailable Care Team Providers Care Retail Field Supervisor Name Role Phone Cesar Zuniga MD PCP Reason for Visit * Reason Comments Anticoagulation INR 1.9 Encounter Details Care Team Description Date Type Department [place], [place] Anticoagulation (INR 1.9) 06/01/2018 Anticoagulation Cardiovascular Medicine [facility] [place] [facility] [place] [address] [place] [address] Social History Date Tobacco Use Types Packs/Day [...] Diagnosis Paroxysmal atrial fibrillation (HCC) Atrial fibrillation alf (current) use of anticoagulants Long-term (current) use of anticoagulants in this encounter
--- OUTSIDE RECORDS SUMMARY | 2018-06-29 02:42 | XMS REPORT | Encounter Summary ---
Author Author [facility] Organization [facility] Address Unknown Phone Unavailable Care Team Providers Care Grade Checker Name Role Phone Cesar Zuniga MD PCP Encounter Details Care Team Description Date Type Department Jackie Frost RN 04/03/2018 Telephone Cardiovascular Medicine [place] [address] [place] [address] Social History Date Tobacco Use Types Packs/Day Years Used Never Smoker Smokeless Tobacco: Never Used Alcohol Use Drinks/Week oz/Week Comments Yes 14 Glasses of 8.4 wine Sex Assigned at Date Recorded Not on file Industry Job Start Date Occupation Not on file Not on file Not on file Travel End Travel History Travel Start No recent travel history available. as of this encounter Miscellaneous Notes * Telephone Encounter - Jackie Frost RN - 04/03/2018 12:14 PM CHEMISTRY LAB INSTRUCTOR per chart we are managing her anticoagulation requesting prescriptions to be mailed to local pharmacy for 30 days as she is almost out of meds verified dose and pharmacy will send 30 days to [facility] pharmacy will send 90 days to her mail in pharmacy she had inr today at the [facility] lab order entered for annual implementation of anticoagulation protocol ISTRY LAB INSTRUCTOR * Telephone Encounter - Jackie Frost RN - 04/03/2018 12:08 PM CHEMISTRY LAB INSTRUCTOR ----- Message from Sindy Nath sent at 04/03/2018 9:57 AM CHEMISTRY LAB INSTRUCTOR ----- Regarding: MPE-Coumadin question Patient calling to see if MPE is managing her warfarin. She thought he was. She would like a call back at [phone] ISTRY LAB INSTRUCTOR in this encounter Plan of Treatment Not on fileas of this encounter Visit Diagnoses Diagnosis Paroxysmal atrial fibrillation (HCC) - Primary Atrial fibrillation in this encounter
--- OUTSIDE RECORDS SUMMARY | 2018-06-29 02:42 | XMS REPORT | Encounter Summary ---
Author Author [facility] Organization [facility] Address Unknown Phone Unavailable Care Team Providers Care Special Library Librarian Name Role Phone Cesar Zuniga MD PCP Reason for Visit * Reason Comments Anticoagulation INR 2.2 Encounter Details Care Team Description Date Type Department Jackie Frost RN Anticoagulation (INR 2.2) 04/10/2018 Anticoagulation Cardiovascular Medicine [address] [place] [address] Social History Date Tobacco Use [...] Comments Procedure Name Priority Date/Time Associated Diagnosis HOME INR Routine 04/10/2018 in this encounter Results * HOME INR (04/10/2018) INR Home 2.2 [facility] Narrative Performed At Performing Organization Address City/State/Zipcode Phone Number [facility] [address] [place] [address] [phone] 10A in this encounter Visit Diagnoses Diagnosis Paroxysmal atrial fibrillation (HCC) Atrial fibrillation terminal carman (current) use of anticoagulants Long-term (current) use of anticoagulants in this encounter
--- OUTSIDE RECORDS SUMMARY | 2018-06-29 02:42 | XMS REPORT | Encounter Summary ---
Author Author [facility] Organization [facility] Address Unknown Phone Unavailable Care Team Providers Care Ship'S Electronic Warfare Officer Name Role Phone Cesar Zuniga MD PCP Reason for Visit * Reason Comments Anticoagulation drawn today 04/03 - inr 1.4 Encounter Details Care Team Description Date Type Department Jackie Frost, RN Anticoagulation (drawn today 04/03 - inr 1.4) 04/03/2018 Anticoagulation Cardiovascular Medicine [facility] [address] [place] [address] Social History Date Tobacco Use Types Packs/Day Years Used Never Smoker Smokeless Tobacco: Never Used Alcohol Use Drinks/Week oz/Week Comments Yes 14 Glasses of 8.4 wine Sex Assigned at Date Recorded Not on file Industry Job Start Date Occupation Not on file Not on file Not on file Travel End Travel History Travel Start No recent travel history available. as of this encounter Progress Notes * Jackie Frost, HIPOL[place]O - 04/03/2018 12:18 PM MOBILE PET GROOMER MPE- RTC for INR 1.4 Received: Today Call patient Message Contents Caroline Guerrero LPN P Mac Nurse Herbert LERMA from patient on triage line. Said that she got our message but wanted us to know that she had surgery last Friday and was off Warfarin for 5 days prior to that. Will that make a difference in what we want her to take? Call back at home. returned call to Mary she forgot to mentioned she had dental surgery last friday. was told to hold warfarin 5 days prior to procedure. denies any bleeding from surgery area will proceed with dosing as noted in flowsheet she will be leaving on vacation but will have inr completed on either 04/08 or 04/09 LE PET GROOMER * Jackie Frost RN - 04/03/2018 12:18 PM MOBILE PET GROOMER Description Stable, no procedures 04/03 left message for Mary with inr results, we reviewed dosing this morning and she did not mention any missed doses. asked her to increase today to 7.5 mg then resume her usual dosing and recheck on 04/08. asked her to c/b if further questions vn LE PET GROOMER in this encounter Plan of Treatment Not on fileas of this encounter Procedures Comments Procedure Name Priority Date/Time Associated Diagnosis HOME INR Routine 04/03/2018 in this encounter Results * HOME INR (04/03/2018) INR Home 1.4 [facility] Narrative Performed At Performing Organization Address City/State/Zipcode Phone Number [facility] [address] [place] [address] 10A in this encounter Visit Diagnoses Diagnosis Paroxysmal atrial fibrillation (HCC) Atrial fibrillation oil heaterman (current) use of anticoagulants Long-term (current) use of anticoagulants in this encounter
--- OUTSIDE RECORDS SUMMARY | 2018-06-29 02:42 | XMS REPORT | Encounter Summary ---
Author Author [facility] Organization [facility] Address Unknown Phone Unavailable Care Team Providers Care Paste Worker Name Role Phone Cesar Zuniga MD PCP Reason for Visit * Reason Comments Anticoagulation INR 3.0 Encounter Details Care Team Description Date Type Department Mary Chavez RN Anticoagulation (INR 3.0 ) 05/12/2018 Anticoagulation Cardiovascular Medicine [facility] [place] [address] [phone] [place] [address] Social History Date Tobacco Use [...] Priority Date/Time Associated Diagnosis HOME INR Routine 05/12/2018 in this encounter Results * HOME INR (05/12/2018) INR Home 3.0 [facility] Performing Organization Address City/State/Zipcode Phone Number [facility] [address] [place] [address] [phone] 10A in this encounter Visit Diagnoses Not on filein this encounter
--- OUTSIDE RECORDS SUMMARY | 2018-06-29 02:43 | XMS REPORT | Continuity of Care Document ---
Author Author [facility] Organization [facility] Address Unknown Phone Unavailable Allergies Active Description Code Type Severity Reaction Onset Reported/Identified Relationship to Patient Clinical Status Yes NO KNOWN DRUG ALLERGIES NO KNOWN DRUG ALLERG UNKNOWN Yes No Known Drug Allergies [id number] Drug Allergy Unknown N/A 10/22/2015 Yes CONTRAST [...] V58.83 ENCOUNTER FOR THERAPEUTIC DRUG MONITORIN 08/23/2012 LIZ DELATORRE MD Ot V58.61 ANTICOAGULANTS,LT,CURRENT USE 08/23/2012 NANDINI OSORIO, LIZ P Ot V58.83 ENCOUNTER [...] OSORIO, LIZ P Ot V58.61 06/09/2014 NANDINI OSORIO, LIZ P Ot V58.83 08/11/2014 NANDINI OSORIO, [...] NANDINI OSORIO, LIZ P Ot V58.83 09/15/2014 DOROTHY JAIN MD Ot V76.12 10/05/2014 NANDINI OSORIO, LIZ Cornejo Ot V58.61 10/05/2014 NANDINI OSORIO, LIZ P Ot V58.83 10/05/2014 DOROTHY JAIN MD Ot V76.12 11/22/2014 NANDINI OSORIO, LIZ Cornejo Ot V58.61 11/22/2014 NANDINI OSORIO, ILZ P Ot V58.83 11/28/2014 NANDINI OSORIO, LIZ P Ot V58.61 ANTICOAGULANTS,LT,CURRENT USE 11/28/2014 NANDINI OSORIO, LIZ P Ot V58.83 ENCOUNTER FOR THERAPEUTIC DRUG MONITORIN 01/10/2015 NANDINI OSORIO, LIZ Cornejo Ot V58.61 01/10/2015 NANDINI OSORIO, LIZ P Ot V58.83 01/10/2015 NANDINI OSORIO, LIZ P Ot V58.61 01/10/2015 NANDINI OSORIO, LIZ P Ot V58.83 01/10/2015 LIZ DELATORRE MD P Ot Z51.81 01/10/2015 NANDINI OSORIO, LIZ P Ot Z79.01 01/10/2015 LIZ DELATORRE MD Ot V58.61 01/10/2015 NANDINI OSORIO, LIZ P Ot V58.83 01/11/2015 LIZ DELATORRE MD Ot V58.61 ANTICOAGULANTS,LT,CURRENT USE 01/11/2015 NANDINI OSORIO, LIZ P Ot V58.83 ENCOUNTER FOR THERAPEUTIC DRUG MONITORIN 02/20/2015 Ot V76.12 02/20/2015 Ot V76.12 02/20/2015 Ot V76.12 02/20/2015 ALBINA MINOR MD Ot 789.04 02/20/2015 ALBINA MINOR MD Ot 793.82 02/20/2015 ALBINA MINOR MD Ot V76.12 02/20/2015 DOROTHY JAIN MD Ot V76.12 02/20/2015 LIZ DELATORRE MD Ot V58.61 02/20/2015 LIZ DELATORRE MD P Ot V58.83 02/21/2015 LIZ DELATORRE MD P Ot Z51.81 02/21/2015 LIZ DELATORRE MD P Ot Z79.01 04/06/2015 NANDINI OSORIO, LIZ P Ot Z51.81 04/06/2015 LIZ DELATORRE MD Ot Z79.01 05/21/2015 LIZ DELATORRE MD P Ot Z51.81 ENCOUNTER FOR THERAPEUTIC DRUG LEVEL MON 05/21/2015 LIZ DELATORRE MD P Ot Z79.01 LONG-TERM (CURRENT) USE OF ANTICOAGULANT 06/12/2015 LIZ DELATORRE MD Ot Z51.81 06/12/2015 LIZ DELATORRE MD P Ot Z79.01 06/13/2015 LIZ DELATORRE MD P Ot Z51.81 06/13/2015 LIZ DELATORRE MD P Ot Z79.01 08/02/2015 LIZ DELATORRE MD P Ot Z51.81 ENCOUNTER FOR THERAPEUTIC DRUG LEVEL MON 08/02/2015 LIZ DELATORRE MD P Ot Z79.01 LONG-TERM (CURRENT) USE OF ANTICOAGULANT 09/10/2015 LZI DELATORRE MD P Ot Z51.81 ENCOUNTER FOR THERAPEUTIC DRUG LEVEL MON 09/10/2015 LIZ DELATORRE MD P Ot Z79.01 COMMODITY TRADER (CURRENT) USE OF ANTICOAGULANT 09/12/2015 LIZ DELATORRE MD P Ot Z51.81 ENCOUNTER FOR THERAPEUTIC DRUG LEVEL MON 09/12/2015 LIZ DELATORRE MD P Ot Z79.01 LONG-TERM (CURRENT) USE OF ANTICOAGULANT 10/05/2015 Ot V76.12 [...] NEOPLASM OF TRAVIS 10/05/2015 LIZ DELATORRE MD P Ot Z51.81 ENCOUNTER FOR THERAPEUTIC DRUG LEVEL MON 10/05/2015 LIZ DELATORRE MD P Ot Z79.01 COMMODITY TRADER (CURRENT) USE OF ANTICOAGULANT 10/05/2015 LIZ DELATORRE MD P Ot Z51.81 ENCOUNTER FOR THERAPEUTIC DRUG LEVEL MON 10/05/2015 LIZ DELATORRE MD P Ot Z79.01 COMMODITY TRADER (CURRENT) USE OF ANTICOAGULANT 10/05/2015 LIZ DELATORRE MD Ot Z51.81 ENCOUNTER FOR THERAPEUTIC DRUG LEVEL MON 10/05/2015 LIZ DELATORRE MD Ot Z79.01 COMMODITY TRADER (CURRENT) USE OF ANTICOAGULANT 10/06/2015 DOROTHY JAIN MD Ot Z12.31 ENCNTR SCREEN MAMMOGRAM FOR MALIGNANT NE 10/11/2015 DOROTHY JAIN MD Ot Z12.31 ENCNTR SCREEN MAMMOGRAM FOR MALIGNANT NE 10/22/2015 MACHO DO, ARSLAN K Ot I48.2 CHRONIC ATRIAL FIBRILLATION 10/22/2015 MACHO DO, ARSLAN K Ot R04.0 EPISTAXIS 10/22/2015 MACHO DO, ARSLAN K Ot Z79.01 LONG-TERM (CURRENT) USE OF ANTICOAGULANT 10/22/2015 Ot V76.12 [...] MON 10/22/2015 LIZ DELATORRE MD Ot Z79.01 COMMODITY TRADER (CURRENT) USE OF ANTICOAGULANT 10/22/2015 DOROTHY JAIN MD Ot Z12.31 ENCNTR SCREEN MAMMOGRAM FOR MALIGNANT NE 10/24/2015 MACHO DO, ARSLAN K Ot I48.2 CHRONIC ATRIAL FIBRILLATION 10/24/2015 MACHO DO, ARSLAN K Ot R04.0 EPISTAXIS 10/24/2015 MACHO DO, ARSLAN K Ot Z79.01 COMMODITY TRADER (CURRENT) USE OF ANTICOAGULANT 10/25/2015 DOROTHY JAIN MD Ot Z12.31 ENCNTR SCREEN MAMMOGRAM FOR MALIGNANT NE 11/24/2015 LIZ DELATORRE MD Ot Z51.81 ENCOUNTER FOR THERAPEUTIC DRUG LEVEL MON 11/24/2015 GALICHIA MD, LIZ P Ot Z79.01 LONG-TERM (CURRENT) USE OF ANTICOAGULANT 12/14/2015 NANDINI OSORIO LIZ P Ot Z51.81 ENCOUNTER FOR THERAPEUTIC DRUG LEVEL MON 12/14/2015 LIZ DELATORRE MD P Ot Z79.01 COMMODITY TRADER (CURRENT) USE OF ANTICOAGULANT 01/03/2016 LIZ DELATORRE MD P Ot Z51.81 ENCOUNTER FOR THERAPEUTIC DRUG LEVEL MON 01/03/2016 LIZ DELATORRE MD P Ot Z79.01 LONG-TERM (CURRENT) USE OF ANTICOAGULANT 01/04/2016 LIZ DELATORRE MD P Ot Z51.81 ENCOUNTER FOR THERAPEUTIC DRUG LEVEL MON 01/04/2016 NANDINI OSORIO LIZ P Ot Z79.01 COMMODITY TRADER (CURRENT) USE OF ANTICOAGULANT 01/10/2016 LIZ DELATORRE MD P Ot Z51.81 ENCOUNTER FOR THERAPEUTIC DRUG LEVEL MON 01/10/2016 LIZ DELATORRE MD P Ot Z79.01 LONG-TERM (CURRENT) USE OF ANTICOAGULANT 01/10/2016 LIZ DELATORRE MD P Ot Z51.81 ENCOUNTER FOR THERAPEUTIC DRUG LEVEL MON 01/10/2016 LIZ DELATORRE MD P Ot Z79.01 COMMODITY TRADER (CURRENT) USE OF ANTICOAGULANT 01/22/2016 LIZ DELATORRE MD P Ot Z51.81 ENCOUNTER FOR THERAPEUTIC DRUG LEVEL MON 01/22/2016 NANDINI OSORIO LIZ P Ot Z79.01 LONG-TERM (CURRENT) USE OF ANTICOAGULANT 02/08/2016 NANDINI OSORIO LIZ P Ot Z51.81 ENCOUNTER FOR THERAPEUTIC DRUG LEVEL MON 02/08/2016 NANDINI OSORIO LIZ P Ot Z79.01 COMMODITY TRADER (CURRENT) USE OF ANTICOAGULANT 02/08/2016 CLARITA MERCEDES ELECTRONICS TEST ENGINEER Ot E78.2 MIXED HYPERLIPIDEMIA 02/08/2016 CLARITA MERCEDES ELECTRONICS TEST ENGINEER Ot G47.62 SLEEP RELATED LEG CRAMPS 02/08/2016 CLARITA MERCEDES ELECTRONICS TEST ENGINEER Ot I48.0 PAROXYSMAL ATRIAL FIBRILLATION 02/08/2016 CLARITA MERCEDES ELECTRONICS TEST ENGINEER Ot R09.81 NASAL CONGESTION 02/08/2016 CLARITA MERCEDES ELECTRONICS TEST ENGINEER Ot Z00.00 ENCNTR FOR GENERAL ADULT MEDICAL EXAM 03/01/2016 CLARITA MERCEDES ELECTRONICS TEST ENGINEER Ot E78.2 MIXED HYPERLIPIDEMIA 03/01/2016 CLARITA MERCEDES ELECTRONICS TEST ENGINEER Ot G47.62 SLEEP RELATED LEG CRAMPS 03/01/2016 CLARITA MERCEDES ELECTRONICS TEST ENGINEER Ot I48.0 PAROXYSMAL ATRIAL FIBRILLATION 03/01/2016 CLARITA MERCEDES ELECTRONICS TEST ENGINEER Ot R09.81 NASAL CONGESTION 03/01/2016 CLARITA MERCEDES ELECTRONICS TEST ENGINEER Ot Z00.00 ENCNTR FOR GENERAL ADULT MEDICAL EXAM W/ 03/22/2016 BHARGAV PICKENS MD Ot R06.00 DYSPNEA, UNSPECIFIED 04/04/2016 BHARGAV PICKENS MD Ot R06.00 DYSPNEA, UNSPECIFIED 04/06/2016 Stacy Aparicio 427.31 ATRIAL FIBRILLATION 04/06/2016 Stacy Aparicio 530.81 ESOPHAGEAL REFLUX 04/06/2016 Stacy Aparicio 786.59 OTHER CHEST PAIN 04/06/2016 Stacy Aparicio I48.91 UNSPECIFIED ATRIAL FIBRILLATION 04/06/2016 Stacy Aparicio K21.9 GASTRO-ESOPHAGEAL REFLUX DISEASE WITHOUT ESOPHAGITIS 04/06/2016 Stacy Aparicio R07.89 OTHER CHEST PAIN 04/08/2016 LIZ DELATORRE MD Ot Z51.81 ENCOUNTER FOR THERAPEUTIC DRUG LEVEL MON 04/08/2016 LIZ DELATORRE MD Ot Z79.01 LONG-TERM (CURRENT) USE OF ANTICOAGULANT 04/09/2016 LIZ DELATORRE MD Ot Z51.81 ENCOUNTER FOR THERAPEUTIC DRUG LEVEL MON 04/09/2016 LIZ DELATORRE MD Ot Z79.01 COMMODITY TRADER (CURRENT) USE OF ANTICOAGULANT 04/12/2016 BHARGAV PICKENS MD Ot R06.00 DYSPNEA, UNSPECIFIED 05/01/2016 BHARGAV PICKENS MD Ot R06.00 DYSPNEA, UNSPECIFIED 05/03/2016 NORBERTO MURRIETA PA-C Ot I48.91 UNSPECIFIED ATRIAL FIBRILLATION 05/22/2016 LIZ DELATORRE MD Ot Z51.81 ENCOUNTER FOR THERAPEUTIC DRUG LEVEL MON 05/22/2016 LIZ DELATORRE MD Ot Z79.01 LONG-TERM (CURRENT) USE OF ANTICOAGULANT 05/22/2016 LIZ DELATORRE MD Ot Z51.81 ENCOUNTER FOR THERAPEUTIC DRUG LEVEL MON 05/22/2016 LIZ DELATORRE MD Ot Z79.01 LONG-TERM (CURRENT) USE OF ANTICOAGULANT 05/23/2016 NORBERTO MURRIETA PA-C Ot I48.91 UNSPECIFIED ATRIAL FIBRILLATION 06/17/2016 LIZ DELATORRE MD Ot Z51.81 ENCOUNTER FOR THERAPEUTIC DRUG LEVEL MON 06/17/2016 LIZ DELATORRE MD Ot Z79.01 LONG-TERM (CURRENT) USE OF ANTICOAGULANT 07/11/2016 LIZ DELATORRE MD Ot Z79.01 LONG-TERM (CURRENT) USE OF ANTICOAGULANT 07/11/2016 LIZ DELATORRE MD Ot Z86.73 PRSNL HX OF TIA (TIA), AND CEREB INFRC W 08/20/2016 LIZ DELATORRE MD Ot Z79.01 COMMODITY TRADER (CURRENT) USE OF ANTICOAGULANT 08/20/2016 LIZ DELATORRE MD Ot Z86.73 PRSNL HX OF TIA (TIA), AND CEREB INFRC W 10/09/2016 LAUREN HOOK APRN Ot Z12.31 ENCNTR SCREEN MAMMOGRAM FOR MALIGNANT NE 10/09/2016 LAUREN HOOK APRN Ot Z12.31 ENCNTR SCREEN MAMMOGRAM FOR MALIGNANT NE 11/01/2016 LAUREN HOOK APRN Ot Z12.31 ENCNTR SCREEN MAMMOGRAM FOR MALIGNANT NE 07/17/2017 CELIO OSORIO, BHARGAV Garcia Ot R05 COUGH 07/17/2017 BHARGAV PICKENS MD Ot R05 COUGH 08/06/2017 BHARGAV PICKENS MD Ot R05 COUGH 09/03/2017 STACY APARICIO APRN Ot I48.91 UNSPECIFIED ATRIAL FIBRILLATION 09/03/2017 STACY APARICIO APRN Ot R40.2142 COMA SCALE, EYES OPEN, SPONTANEOUS, EMR 09/03/2017 STACY APARICIO APRN Ot R40.2252 COMA SCALE, BEST VERBAL RESPONSE, ORIENT 09/03/2017 STACY APARICIO APRN Ot R40.2362 COMA SCALE, BEST MOTOR RESPONSE, OBEYS C 09/03/2017 STACY APARICIO APRN Ot S09.90XA UNSPECIFIED INJURY OF HEAD, INITIAL ENCO 09/03/2017 STACY APARICIO APRN Ot W01.198A FALL SAME LEV FROM SLIP/TRIP W STRIKE AG 09/03/2017 STACY APARICIO APRN Ot Z79.01 COMMODITY TRADER (CURRENT) USE OF ANTICOAGULANT 09/03/2017 STACY APARICIO APRN Ot Z90.710 ACQUIRED ABSENCE OF BOTH CERVIX AND UTER 09/09/2017 STACY APARICIO APRN Ot I48.91 UNSPECIFIED ATRIAL FIBRILLATION 09/09/2017 STACY APARICIO APRN Ot R40.2142 COMA SCALE, EYES OPEN, SPONTANEOUS, EMR 09/09/2017 STACY APARICIO DRUG ENFORCEMENT AGENT Ot R40.2252 COMA SCALE, BEST VERBAL RESPONSE, ORIENT 09/09/2017 STACY APARICIO DRUG ENFORCEMENT AGENT Ot R40.2362 COMA SCALE, BEST MOTOR RESPONSE, OBEYS C 09/09/2017 STACY APARICIO DRUG ENFORCEMENT AGENT Ot S09.90XA UNSPECIFIED INJURY OF HEAD, INITIAL ENCO 09/09/2017 STACY APARICIO APRN Ot W01.198A FALL SAME LEV FROM SLIP/TRIP W STRIKE AG 09/09/2017 STACY APARICIO DRUG ENFORCEMENT AGENT Ot Z79.01 COMMODITY TRADER (CURRENT) USE OF ANTICOAGULANT 09/09/2017 STACY APARICIO DRUG ENFORCEMENT AGENT Ot Z90.710 ACQUIRED ABSENCE OF BOTH CERVIX AND UTER 10/14/2017 LAUREN HOOK APRN Ot Z12.31 ENCNTR SCREEN MAMMOGRAM FOR MALIGNANT NE 11/28/2017 Ot V76.12 OTH SCREEN MAMMO-MALIGN NEOPLASM OF TRAVIS 11/28/2017 IVÁN OSORIO, ALBINA Jo Ot 789.04 ABDOMINAL PAIN, LEFT LOWER QUADRANT 11/28/2017 IVÁN OSORIO, ALBINA Jo Ot 793.82 INCONCLUSIVE MAMMOGRAM 11/28/2017 IVÁN OSORIO, ALBINA Jo Ot V76.12 OTH SCREEN MAMMO-MALIGN NEOPLASM OF TRAVIS 11/28/2017 CRISTOBAL OSORIO, DOROTHY Zhao Ot V76.12 OTH SCREEN MAMMO-MALIGN NEOPLASM OF TRAVIS 11/28/2017 DOROTHY JAIN MD Ot Z12.31 ENCNTR SCREEN MAMMOGRAM FOR MALIGNANT NE 11/28/2017 CLARITA MERCEDES ELECTRONICS TEST ENGINEER Ot E78.2 MIXED HYPERLIPIDEMIA 11/28/2017 CLARITA MERCEDES ELECTRONICS TEST ENGINEER Ot G47.62 SLEEP RELATED LEG CRAMPS 11/28/2017 CLARITA MERCEDESP Ot I48.0 PAROXYSMAL ATRIAL FIBRILLATION 11/28/2017 CLARITA MERCEDES ELECTRONICS TEST ENGINEER Ot R09.81 NASAL CONGESTION 11/28/2017 CLARITA MERCEDES Ot Z00.00 ENCNTR FOR GENERAL ADULT MEDICAL EXAM W/ 11/28/2017 CELIO OSORIO, BHARGAV Garcia Ot R06.00 DYSPNEA, UNSPECIFIED 11/28/2017 CELIO OSORIO, BHARGAV Garcia Ot R06.00 DYSPNEA, UNSPECIFIED 11/28/2017 NORBERTO MURRIETA PA-C Ot I48.91 UNSPECIFIED ATRIAL FIBRILLATION 11/28/2017 LAUREN HOOK DRUG ENFORCEMENT AGENT Ot Z12.31 ENCNTR SCREEN MAMMOGRAM FOR MALIGNANT NE 11/28/2017 BHARGAV PICKENS MD Ot R05 COUGH 11/28/2017 LAUREN HOOK APRN Ot Z12.31 ENCNTR SCREEN MAMMOGRAM FOR MALIGNANT NE 12/01/2017 LAUREN HOOK APRN Ot Z12.31 ENCNTR SCREEN MAMMOGRAM FOR MALIGNANT NE 01/01/2018 LAUREN HOOK APRN Ot Z12.31 ENCNTR SCREEN MAMMOGRAM FOR MALIGNANT NE 04/23/2018 BHARGAV PICKENS MD Ot J44.9 CHRONIC OBSTRUCTIVE PULMONARY DISEASE, U 04/27/2018 STACY APARICIO APRN Ot I48.91 UNSPECIFIED ATRIAL FIBRILLATION 04/27/2018 STACY APARICIO APRN Ot S60.512A ABRASION OF LEFT HAND, INITIAL ENCOUNTER 04/27/2018 STACY APARICIO DRUG ENFORCEMENT AGENT Ot Z23 ENCOUNTER FOR IMMUNIZATION 04/27/2018 STACY APARICIO APRN Ot Z90.710 ACQUIRED ABSENCE OF BOTH CERVIX AND UTER 04/29/2018 STACY APARICIO APRN Ot I48.91 UNSPECIFIED ATRIAL FIBRILLATION 04/29/2018 STACY APARICIO APRN Ot S60.512A ABRASION OF LEFT HAND, INITIAL ENCOUNTER 04/29/2018 STACY APARICIO APRN Ot Z23 ENCOUNTER FOR IMMUNIZATION 04/29/2018 STACY APARICIO APRN Ot Z90.710 ACQUIRED ABSENCE OF BOTH CERVIX AND UTER 05/11/2018 BHARGAV IPCKENS MD Ot J44.9 CHRONIC OBSTRUCTIVE PULMONARY DISEASE, U Procedures There is no data. <section xmlns="urn:hl7-org:v3" xmlns:xsi="http:// www.w3.org/2001/XMLSchema-instance"> <templateId root= "2.16.840.1.851577.10..22.2.3" /> <templateId root= "2.16.840.1.037411.10..22.2.3.1" /> <code codeSystemName="LOINC" codeSystem= "2.16.840.1.335931.6.1" code="39790-9" displayName="Results" /> <title>Results< /title> <text> <table> <thead> <tr> <th>Test</th> <th>Result</th> <th>Range</th> </tr> </thead> < tbody> <tr> < colspan="10">PT panel in platelet poor plasma by coagulation assay - 11/17/15 12:21</th> </tr> <tr> <td >Prothrombin time (PT) in platelet poor plasma by coagulation assay</td> <td>23.3 s</td> <td>12.2-14.7</td> </tr> <tr> <td>INR in platelet poor plasma or blood by coagulation assay</td> < td>2.1 </td> <td>0.8-1.4</td> </tr> <tr> < colspan="10">PT panel in platelet poor plasma by coagulation assay - 01/09/16 14 :00</th> </tr> <tr> <td>Prothrombin time (PT) in platelet poor plasma by coagulation assay</td> <td>27.1 s</td> <td>12.2-14.7</td> </tr> <tr> <td>INR in platelet poor plasma or blood by coagulation assay</td> <td>2.5 </td> <td> 0.8-1.4</td> </tr> <tr> < colspan="10">Complete blood count (CBC) with automated white [...] mass/volume)</td> <td>3.9 g/dL</td> <td>3.2-4.5</td> </ tr> <tr> < colspan="10">Magnesium - 02/08/16 08:46</th> </tr> <tr> <td>Magnesium</td> <td>2.2 mg/dL</td> <td>1.8-2.4</td> </tr> <tr> < colspan="10">Lipid 1996 panel - 02/08/16 08:46</th> </tr> [...] assay</td> <td>2.8 </td> <td> 0.8-1.4</td> </tr> <tr> < colspan="10">PT panel in platelet poor plasma by coagulation assay - 07/18/16 09:57</th> </tr> <tr> <td>Prothrombin time (PT) in platelet poor plasma by coagulation assay</td> <td>25.3 s</td> <td>12.2-14.7</td> </tr> <tr> <td>INR in platelet poor plasma or blood by coagulation assay</td> <td>2.3 </td> <td>0.8-1.4</td> < /tr> <tr> < colspan="10">PT panel in platelet poor plasma by coagulation assay - 08/13/16 10:17</th> </tr> <tr> <td> Prothrombin time (PT) in platelet poor plasma by coagulation assay</td> <td>30.9 s</td> <td>12.2-14.7</td> </tr> <tr> <td>INR in platelet poor plasma or blood by coagulation assay</td> <td> 3.0 </td> <td>0.8-1.4</td> </tr> <tr> < colspan="10">PT panel in platelet poor plasma by coagulation assay - 09/03/17 11 :34</th> </tr> <tr> <td>Prothrombin time (PT) in platelet poor plasma by coagulation assay</td> <td>25.2 s</td> <td>12.2-14.7</td> </tr> <tr> <td>INR in platelet poor plasma or blood by coagulation assay</td> <td>2.3 </td> <td> 0.8-1.4</td> </tr> </tbody> </table> </text> <entry> < organizer moodCode="EVN" classCode="BATTERY"> <templateId root= "216.840.1.007574.10..22.4.1" /> <id nullFlavor="NA" /> <code codeSystem="local" code="71261-7" displayName="PT panel in platelet poor plasma by coagulation assay" /> <statusCode code="completed" /> <component> <observation moodCode="EVN" classCode="OBS"> <templateId root= "216.840.1.481340.10..22.4.2" /> <id nullFlavor="NA" /> < code codeSystem="local" code="5902-2" displayName="Prothrombin time (PT) in platelet poor plasma by coagulation assay" /> <statusCode code= "completed" /> <effectiveTime value="[id number]" /> <value unit="s" xsi:type="PQ" value="23.3" /> <interpretationCode codeSystem= "local" code="" /> <referenceRange> <observationRange> <text>12.2-14.7</text> </observationRange> </ referenceRange> </observation> </component> <component> <observation moodCode="EVN" classCode="OBS"> <templateId root= "216.840.1.836223.10..22.4.2" /> <id nullFlavor="NA" /> < code codeSystem="local" code="12046-6" displayName="INR in platelet poor plasma or blood by coagulation assay" /> <statusCode code="completed" /> <effectiveTime value="600067013973" /> <value unit="" xsi:type="PQ " value="2.1" /> <interpretationCode codeSystem="local" code="" /> <referenceRange> <observationRange> <text>0.8- 1.4</text> </observationRange> </referenceRange> </ observation> </component> </organizer> </entry> <entry> <organizer moodCode="EVN" classCode="BATTERY"> <templateId root= "216.840.1.865282.10..22.4.1" /> <id nullFlavor="NA" /> <code codeSystem="local" code="36518-2" displayName="PT panel in platelet poor plasma by coagulation assay" /> <statusCode code="completed" /> <component> <observation moodCode="EVN" classCode="OBS"> <templateId root= "216.840.1.913974.10...4.2" /> <id nullFlavor="NA" /> < code codeSystem="local" code="5902-2" displayName="Prothrombin time (PT) in platelet poor plasma by coagulation assay" /> <statusCode code= "completed" /> <effectiveTime value="" /> <value unit="s" xsi:type="PQ" value="27.1" /> <interpretationCode codeSystem= "local" code="" /> <referenceRange> <observationRange> <text>12.2-14.7</text> </observationRange> </ referenceRange> </observation> </component> <component> <observation moodCode="EVN" classCode="OBS"> <templateId root= "216.840.1.786579.10...4.2" /> <id nullFlavor="NA" /> < code codeSystem="local" code="70245-4" displayName="INR in platelet poor plasma or blood by coagulation assay" /> <statusCode code="completed" /> <effectiveTime value="" /> <value unit="" xsi:type="PQ " value="2.5" /> <interpretationCode codeSystem="local" code="" /> <referenceRange> <observationRange> <text>0.8- 1.4</text> </observationRange> </referenceRange> </ observation> </component> </organizer> </entry> <entry> <organizer moodCode="EVN" classCode="BATTERY"> <templateId root= "216.840.1.721974.10.20.22.4.1" /> <id nullFlavor="NA" /> <code codeSystem="local" code="96443-8" displayName="Complete blood count (CBC) with automated white blood cell (WBC) differential" /> <statusCode code= "completed" /> <component> <observation moodCode="EVN" classCode= "OBS"> <templateId root="216.840.1.104963.10.20.22.4.2" /> < id nullFlavor="NA" /> <code codeSystem="local" code="6690-2" displayName="Blood leukocytes automated count (number/volume)" /> < statusCode code="completed" /> <effectiveTime value="[id number]" /> <value unit="10*3/uL" xsi:type="PQ" value="4.7" /> < referenceRange> <observationRange> <text>4.3-11.0</text > </observationRange> </referenceRange> </observation > </component> <component> <observation moodCode="EVN" classCode="OBS"> <templateId root="16.840.1.079410.10.20.22.4.2" /> <id nullFlavor="NA" /> <code codeSystem="local" code="789-8" displayName="Blood erythrocytes automated count (number/volume)" /> < statusCode code="completed" /> <effectiveTime value="869717284138" /> <value unit="10*6/uL" xsi:type="PQ" value="4.47" /> < referenceRange> <observationRange> <text>4.35-5.85</text > </observationRange> </referenceRange> </observation > </component> <component> <observation moodCode="EVN" classCode="OBS"> <templateId root="2.16.840.1.599675.10.20.22.4.2" /> <id nullFlavor="NA" /> <code codeSystem="local" code="45878-9 " displayName="Venous blood hemoglobin measurement (mass/volume)" /> < statusCode code="completed" /> <effectiveTime value="959907108047" /> <value unit="g/dL" xsi:type="PQ" value="14.3" /> < referenceRange> <observationRange> <text>11.5-16.0</text > </observationRange> </referenceRange> </observation > </component> <component> <observation moodCode="EVN" classCode="OBS"> <templateId root="216.840.1.897765.10...4.2" /> <id nullFlavor="NA" /> <code codeSystem="local" code="36390-8 " displayName="Blood hematocrit (volume fraction)" /> <statusCode code= "completed" /> <effectiveTime value="413050973022" /> <value unit="%" xsi:type="PQ" value="42" /> <referenceRange> < observationRange> <text>35-52</text> </observationRange > </referenceRange> </observation> </component> < component> <observation moodCode="EVN" classCode="OBS"> < templateId root="216.840.1.277350.10.20.22.4.2" /> <id nullFlavor="NA " /> <code codeSystem="local" code="787-2" displayName="Automated erythrocyte mean corpuscular volume" /> <statusCode code="completed" / > <effectiveTime value="053059457367" /> <value unit="[foz_us] " xsi:type="PQ" value="95" /> <referenceRange> < observationRange> <text>80-99</text> </observationRange > </referenceRange> </observation> </component> < component> <observation moodCode="EVN" classCode="OBS"> < templateId root="2.16.840.1.950955.10.20.22.4.2" /> <id nullFlavor="NA " /> <code codeSystem="local" code="785-6" displayName="Automated erythrocyte mean corpuscular hemoglobin (mass per erythrocyte)" /> < statusCode code="completed" /> <effectiveTime value="[id number]" /> <value unit="pg" xsi:type="PQ" value="32" /> <referenceRange> <observationRange> <text>25-34</text> </ observationRange> </referenceRange> </observation> </ component> <component> <observation moodCode="EVN" classCode="OBS"> <templateId root="[id number]" /> <id nullFlavor="NA" /> <code codeSystem="local" code="786-4" displayName= "Automated erythrocyte mean corpuscular hemoglobin concentration measurement ( mass/volume)" /> <statusCode code="completed" /> < effectiveTime value="[id number]" /> <value unit="g/dL" xsi:type="PQ" value="34" /> <referenceRange> <observationRange> <text>32-36</text> </observationRange> </referenceRange > </observation> </component> <component> <observation moodCode="EVN" classCode="OBS"> <templateId root= "[id number].2" /> <id nullFlavor="NA" /> < code codeSystem="local" code="788-0" displayName="Automated erythrocyte distribution width ratio" /> <statusCode code="completed" /> < effectiveTime value="[id number]" /> <value unit="%" xsi:type="PQ " value="13.6" /> <referenceRange> <observationRange> <text>10.0-14.5</text> </observationRange> </ referenceRange> </observation> </component> <component> <observation moodCode="EVN" classCode="OBS"> <templateId root= "[id number]..22.4.2" /> <id nullFlavor="NA" /> < code codeSystem="local" code="777-3" displayName="Automated blood platelet count (count/volume)" /> <statusCode code="completed" /> < effectiveTime value="[id number]" /> <value unit="10*3/uL" xsi:type= "PQ" value="278" /> <referenceRange> <observationRange> <text>130-400</text> </observationRange> </ referenceRange> </observation> </component> <component> <observation moodCode="EVN" classCode="OBS"> <templateId root= "216.840.1.686094.10.20.22.4.2" /> <id nullFlavor="NA" /> < code codeSystem="local" code="34019-0" displayName="Automated blood platelet mean volume measurement" /> <statusCode code="completed" /> < effectiveTime value="[id number]" /> <value unit="[foz_us]" xsi:type= "PQ" value="10.4" /> <referenceRange> <observationRange> <text>7.4-10.4</text> </observationRange> </ referenceRange> </observation> </component> <component> <observation moodCode="EVN" classCode="OBS"> <templateId root= "[id number].2" /> <id nullFlavor="NA" /> < code codeSystem="local" code="770-8" displayName="Automated blood neutrophils/ 100 leukocytes" /> <statusCode code="completed" /> < effectiveTime value="[id number]" /> <value unit="%" xsi:type="PQ " value="51" /> <referenceRange> <observationRange> <text>42-75</text> </observationRange> </ referenceRange> </observation> </component> <component> <observation moodCode="EVN" classCode="OBS"> <templateId root= "16.840.1.410519.10.20.22.4.2" /> <id nullFlavor="NA" /> < code codeSystem="local" code="736-9" displayName="Automated blood lymphocytes/ 100 leukocytes" /> <statusCode code="completed" /> < effectiveTime value="[id number]" /> <value unit="%" xsi:type="PQ " value="31" /> <referenceRange> <observationRange> <text>12-44</text> </observationRange> </ referenceRange> </observation> </component> <component> <observation moodCode="EVN" classCode="OBS"> <templateId root= "216.840.1.744955.10.20.22.4.2" /> <id nullFlavor="NA" /> < code codeSystem="local" code="71947-5" displayName="Blood monocytes/100 leukocytes" /> <statusCode code="completed" /> <effectiveTime value="849082389276" /> <value unit="%" xsi:type="PQ" value="15" / > <interpretationCode codeSystem="local" code="" /> < referenceRange> <observationRange> <text>0-12</text> </observationRange> </referenceRange> </observation> </component> <component> <observation moodCode="EVN" classCode= "OBS"> <templateId root="2.16.840.1.518711.10.20.22.4.2" /> < id nullFlavor="NA" /> <code codeSystem="local" code="713-8" displayName ="Automated blood eosinophils/100 leukocytes" /> <statusCode code= "completed" /> <effectiveTime value="901017317867" /> <value unit="%" xsi:type="PQ" value="2" /> <referenceRange> < observationRange> <text>0-10</text> </observationRange> </referenceRange> </observation> </component> < component> <observation moodCode="EVN" classCode="OBS"> < templateId root="2.16.840.1.137720.10.20.22.4.2" /> <id nullFlavor="NA " /> <code codeSystem="local" code="706-2" displayName="Automated blood basophils/100 leukocytes" /> <statusCode code="completed" /> <effectiveTime value="528521315861" /> <value unit="%" xsi: type="PQ" value="1" /> <referenceRange> <observationRange> <text>0-10</text> </observationRange> </ referenceRange> </observation> </component> <component> <observation moodCode="EVN" classCode="OBS"> <templateId root= "216.840.1.002787.10.20.22.4.2" /> <id nullFlavor="NA" /> < code codeSystem="local" code="751-8" displayName="Blood neutrophils automated count (number/volume)" /> <statusCode code="completed" /> < effectiveTime value="406934307535" /> <value unit="10*3" xsi:type="PQ" value="2.4" /> <referenceRange> <observationRange> <text>1.8-7.8</text> </observationRange> </ referenceRange> </observation> </component> <component> <observation moodCode="EVN" classCode="OBS"> <templateId root= "16.840.1.529002.10.20.22.4.2" /> <id nullFlavor="NA" /> < code codeSystem="local" code="731-0" displayName="Blood lymphocytes automated count (number/volume)" /> <statusCode code="completed" /> < effectiveTime value="434427311453" /> <value unit="10*3" xsi:type="PQ" value="1.5" /> <referenceRange> <observationRange> <text>1.0-4.0</text> </observationRange> </ referenceRange> </observation> </component> <component> <observation moodCode="EVN" classCode="OBS"> <templateId root= "16.840.1.765402.10.20.22.4.2" /> <id nullFlavor="NA" /> < code codeSystem="local" code="742-7" displayName="Blood monocytes automated count (number/volume)" /> <statusCode code="completed" /> < effectiveTime value="944709977269" /> <value unit="10*3" xsi:type="PQ" value="0.7" /> <referenceRange> <observationRange> <text>0.0-1.0</text> </observationRange> </ referenceRange> </observation> </component> <component> <observation moodCode="EVN" classCode="OBS"> <templateId root= "216.840.1.368893.10.20.22.4.2" /> <id nullFlavor="NA" /> < code codeSystem="local" code="711-2" displayName="Automated eosinophil count" / > <statusCode code="completed" /> <effectiveTime value= "753631311097" /> <value unit="10*3/uL" xsi:type="PQ" value="0.1" /> <referenceRange> <observationRange> <text>0.0- 0.3</text> </observationRange> </referenceRange> </ observation> </component> <component> <observation moodCode= "EVN" classCode="OBS"> <templateId root="16.840.1.723868.10...4.2 " /> <id nullFlavor="NA" /> <code codeSystem="local" code="704 -7" displayName="Automated blood basophil count (count/volume)" /> < statusCode code="completed" /> <effectiveTime value="619273882341" /> <value unit="10*3/uL" xsi:type="PQ" value="0.0" /> < referenceRange> <observationRange> <text>0.0-0.1</text> </observationRange> </referenceRange> </observation > </component> </organizer> </entry> <entry> <organizer moodCode= "EVN" classCode="BATTERY"> <templateId root="216.840.1.610787.10.20.22.4.1 " /> <id nullFlavor="NA" /> <code codeSystem="local" code="52763-1" displayName="Comprehensive metabolic panel" /> <statusCode code="completed " /> <component> <observation moodCode="EVN" classCode="OBS"> <templateId root="216.840.1.076798.10.20.22.4.2" /> <id nullFlavor ="NA" /> <code codeSystem="local" code="2951-2" displayName="Serum or plasma sodium measurement (moles/volume)" /> <statusCode code= "completed" /> <effectiveTime value="263040359410" /> <value unit="mmol/L" xsi:type="PQ" value="139" /> <referenceRange> <observationRange> <text>135-145</text> </ observationRange> </referenceRange> </observation> </ component> <component> <observation moodCode="EVN" classCode="OBS"> <templateId root="216.840.1.627150.10.20.22.4.2" /> <id nullFlavor="NA" /> <code codeSystem="local" code="2823-3" displayName= "Serum or plasma potassium measurement (moles/volume)" /> <statusCode code="completed" /> <effectiveTime value="340381480966" /> < value unit="mmol/L" xsi:type="PQ" value="3.9" /> <referenceRange> <observationRange> <text>3.6-5.0</text> </ observationRange> </referenceRange> </observation> </ component> <component> <observation moodCode="EVN" classCode="OBS"> <templateId root="216.840.1.443755.10.20.22.4.2" /> <id nullFlavor="NA" /> <code codeSystem="local" code="2075-0" displayName= "Serum or plasma chloride measurement (moles/volume)" /> <statusCode code="completed" /> <effectiveTime value="094687840872" /> < value unit="mmol/L" xsi:type="PQ" value="105" /> <referenceRange> <observationRange> <text>98-107</text> </ observationRange> </referenceRange> </observation> </ component> <component> <observation moodCode="EVN" classCode="OBS"> <templateId root="2.16.840.1.532087.10.20.22.4.2" /> <id nullFlavor="NA" /> <code codeSystem="local" code="2027-12" displayName= "Carbon dioxide" /> <statusCode code="completed" /> < effectiveTime value="434885476472" /> <value unit="mmol/L" xsi:type="PQ " value="29" /> <referenceRange> <observationRange> <text>21-32</text> </observationRange> </ referenceRange> </observation> </component> <component> <observation moodCode="EVN" classCode="OBS"> <templateId root= "2.16.840.1.021089.10.20.22.4.2" /> <id nullFlavor="NA" /> < code codeSystem="local" code="16762-0" displayName="Serum or plasma anion gap determination (moles/volume)" /> <statusCode code="completed" /> <effectiveTime value="991387970927" /> <value unit="mmol/L" xsi: type="PQ" value="5" /> <referenceRange> <observationRange> <text>5-14</text> </observationRange> </ referenceRange> </observation> </component> <component> <observation moodCode="EVN" classCode="OBS"> <templateId root= "2.16.840.1.197818.10..22.4.2" /> <id nullFlavor="NA" /> < code codeSystem="local" code="3094-0" displayName="Serum or plasma urea nitrogen measurement (mass/volume)" /> <statusCode code="completed" /> <effectiveTime value="688266331879" /> <value unit="mg/dL" xsi:type="PQ" value="11" /> <referenceRange> < observationRange> <text>7-18</text> </observationRange> </referenceRange> </observation> </component> < component> <observation moodCode="EVN" classCode="OBS"> < templateId root="216.840.1.687875.10..22.4.2" /> <id nullFlavor="NA " /> <code codeSystem="local" code="2160-0" displayName="Serum or plasma creatinine measurement (mass/volume)" /> <statusCode code= "completed" /> <effectiveTime value="925852917890" /> <value unit="mg/dL" xsi:type="PQ" value="0.80" /> <referenceRange> <observationRange> <text>0.60-1.30</text> </ observationRange> </referenceRange> </observation> </ component> <component> <observation moodCode="EVN" classCode="OBS"> <templateId root="16.840.1.342462.10..22.4.2" /> <id nullFlavor="NA" /> <code codeSystem="local" code="3097-3" displayName= "Serum or plasma urea nitrogen/creatinine mass ratio" /> <statusCode code="completed" /> <effectiveTime value="453886368496" /> < value unit="" xsi:type="PQ" value="14" /> <referenceRange> < observationRange> <text>NRG</text> </observationRange> </referenceRange> </observation> </component> < component> <observation moodCode="EVN" classCode="OBS"> < templateId root="2.16.840.1.301048.10..22.4.2" /> <id nullFlavor="NA " /> <code codeSystem="local" code="44041-9" displayName="Serum or plasma creatinine measurement with calculation of estimated glomerular filtration rate" /> <statusCode code="completed" /> < effectiveTime value="673045622379" /> <value unit="" xsi:type="PQ" value=">" /> <referenceRange> <observationRange> <text>NRG</text> </observationRange> </referenceRange > </observation> </component> <component> <observation moodCode="EVN" classCode="OBS"> <templateId root= "216.840.1.935280.10..4.2" /> <id nullFlavor="NA" /> < code codeSystem="local" code="2345-7" displayName="Serum or plasma glucose measurement (mass/volume)" /> <statusCode code="completed" /> <effectiveTime value="844299015330" /> <value unit="mg/dL" xsi:type="PQ " value="102" /> <referenceRange> <observationRange> <text>70-105</text> </observationRange> </ referenceRange> </observation> </component> <component> <observation moodCode="EVN" classCode="OBS"> <templateId root= "2.16.840.1.486219.10..22.4.2" /> <id nullFlavor="NA" /> < code codeSystem="local" code="93235-0" displayName="Serum or plasma calcium measurement (mass/volume)" /> <statusCode code="completed" /> <effectiveTime value="570033236194" /> <value unit="mg/dL" xsi:type="PQ " value="8.2" /> <interpretationCode codeSystem="local" code="" /> <referenceRange> <observationRange> <text>8.5- 10.1</text> </observationRange> </referenceRange> </ observation> </component> <component> <observation moodCode= "EVN" classCode="OBS"> <templateId root="2.16.840.1.032293.10.20.22.4.2 " /> <id nullFlavor="NA" /> <code codeSystem="local" code= "1974-05" displayName="Serum or plasma total bilirubin measurement (mass/volume) " /> <statusCode code="completed" /> <effectiveTime value= "633306377754" /> <value unit="mg/dL" xsi:type="PQ" value="0.5" /> <referenceRange> <observationRange> <text>0.1-1.0< /text> </observationRange> </referenceRange> </ observation> </component> <component> <observation moodCode= "EVN" classCode="OBS"> <templateId root="2.16.840.1.505899.10.20.22.4.2 " /> <id nullFlavor="NA" /> <code codeSystem="local" code= "6768-6" displayName="Serum or plasma alkaline phosphatase measurement ( enzymatic activity/volume)" /> <statusCode code="completed" /> <effectiveTime value="474491801550" /> <value unit="U/L" xsi:type="PQ " value="61" /> <referenceRange> <observationRange> <text>40-136</text> </observationRange> </ referenceRange> </observation> </component> <component> <observation moodCode="EVN" classCode="OBS"> <templateId root= "2.16.840.1.977522.10.20.22.4.2" /> <id nullFlavor="NA" /> < code codeSystem="local" code="1919-11" displayName="Serum or plasma aspartate aminotransferase measurement (enzymatic activity/volume)" /> < statusCode code="completed" /> <effectiveTime value="220617462054" /> <value unit="U/L" xsi:type="PQ" value="15" /> <referenceRange > <observationRange> <text>5-34</text> </ observationRange> </referenceRange> </observation> </ component> <component> <observation moodCode="EVN" classCode="OBS"> <templateId root="2.16.840.1.988050.10..22.4.2" /> <id nullFlavor="NA" /> <code codeSystem="local" code="17405-20" displayName= "Serum or plasma alanine aminotransferase measurement (enzymatic activity/volume )" /> <statusCode code="completed" /> <effectiveTime value= "705888938536" /> <value unit="U/L" xsi:type="PQ" value="22" /> <referenceRange> <observationRange> <text>0-55</text > </observationRange> </referenceRange> </observation > </component> <component> <observation moodCode="EVN" classCode="OBS"> <templateId root="2.16.840.1.453172.10.20.22.4.2" /> <id nullFlavor="NA" /> <code codeSystem="local" code="2885-" displayName="Serum or plasma protein measurement (mass/volume)" /> < statusCode code="completed" /> <effectiveTime value="292859238242" /> <value unit="g/dL" xsi:type="PQ" value="5.8" /> < interpretationCode codeSystem="local" code="" /> <referenceRange> <observationRange> <text>6.4-8.2</text> </ observationRange> </referenceRange> </observation> </ component> <component> <observation moodCode="EVN" classCode="OBS"> <templateId root="216.840.1.770049.10.22.4.2" /> <id nullFlavor="NA" /> <code codeSystem="local" code="1751-7" displayName= "Serum or plasma albumin measurement (mass/volume)" /> <statusCode code ="completed" /> <effectiveTime value="928676312433" /> <value unit="g/dL" xsi:type="PQ" value="3.9" /> <referenceRange> < observationRange> <text>3.2-4.5</text> </ observationRange> </referenceRange> </observation> </ component> </organizer> </entry> <entry> <organizer moodCode="EVN" classCode="BATTERY"> <templateId root="05.30.840.1.042508.22.4.1" /> <id nullFlavor="NA" /> <code codeSystem="local" code="25076-8" displayName="Magnesium" /> <statusCode code="completed" /> <component > <observation moodCode="EVN" classCode="OBS"> <templateId root= "16.840.1.931288.10.2022.4.2" /> <id nullFlavor="NA" /> < code codeSystem="local" code="80622-8" displayName="Magnesium" /> < statusCode code="completed" /> <effectiveTime value="589031656274" /> <value unit="mg/dL" xsi:type="PQ" value="2.2" /> < referenceRange> <observationRange> <text>1.8-2.4</text> </observationRange> </referenceRange> </observation > </component> </organizer> </entry> <entry> <organizer moodCode= "EVN" classCode="BATTERY"> <templateId root="2.16.840.1.223281.10.20.22.4.1 " /> <id nullFlavor="NA" /> <code codeSystem="local" code="46069-7" displayName="Lipid 1996 panel" /> <statusCode code="completed" /> < component> <observation moodCode="EVN" classCode="OBS"> < templateId root="2.16.840.1.806643.10..22.4.2" /> <id nullFlavor="NA " /> <code codeSystem="local" code="2571-8" displayName="Serum or plasma triglyceride measurement (mass/volume)" /> <statusCode code= "completed" /> <effectiveTime value="563975377682" /> <value unit="mg/dL" xsi:type="PQ" value="99" /> <referenceRange> < observationRange> <text><150</text> </ observationRange> </referenceRange> </observation> </ component> <component> <observation moodCode="EVN" classCode="OBS"> <templateId root="216.840.1.563158.10..22.4.2" /> <id nullFlavor="NA" /> <code codeSystem="local" code="2093-3" displayName= "Serum or plasma cholesterol measurement (mass/volume)" /> <statusCode code="completed" /> <effectiveTime value="335485247826" /> < value unit="mg/dL" xsi:type="PQ" value="271" /> <interpretationCode codeSystem="local" code="" /> <referenceRange> < observationRange> <text>< 200</text> </ observationRange> </referenceRange> </observation> </ component> <component> <observation moodCode="EVN" classCode="OBS"> <templateId root="2.16.840.1.615524.10..22.4.2" /> <id nullFlavor="NA" /> <code codeSystem="local" code="2085-9" displayName= "Serum or plasma cholesterol in HDL measurement (mass/volume)" /> < statusCode code="completed" /> <effectiveTime value="997016605201" /> <value unit="mg/dL" xsi:type="PQ" value="78" /> < interpretationCode codeSystem="local" code="" /> <referenceRange> <observationRange> <text>40-60</text> </ observationRange> </referenceRange> </observation> </ component> <component> <observation moodCode="EVN" classCode="OBS"> <templateId root="216.840.1.137259.10..22.4.2" /> <id nullFlavor="NA" /> <code codeSystem="local" code="73235-2" displayName= "Cholesterol in LDL [mass/volume] in serum or plasma by direct assay" /> <statusCode code="completed" /> <effectiveTime value="875129957361" /> <value unit="mg/dL" xsi:type="PQ" value="172" /> < interpretationCode codeSystem="local" code="" /> <referenceRange> <observationRange> <text>1-129</text> </ observationRange> </referenceRange> </observation> </ component> <component> <observation moodCode="EVN" classCode="OBS"> <templateId root="216.840.1.543796.10..22.4.2" /> <id nullFlavor="NA" /> <code codeSystem="local" code="2090-10" displayName= "Serum or plasma cholesterol in VLDL measurement (mass/volume)" /> < statusCode code="completed" /> <effectiveTime value="787043783013" /> <value unit="mg/dL" xsi:type="PQ" value="20" /> < referenceRange> <observationRange> <text>5-40</text> </observationRange> </referenceRange> </observation> </component> </organizer> </entry> <entry> <organizer moodCode="EVN " classCode="BATTERY"> <templateId root="216.840.1.309499.10..22.4.1" / > <id nullFlavor="NA" /> <code codeSystem="local" code="TSH" displayName="THYROID STIMULATING HORMONE" /> <statusCode code="completed" / > <component> <observation moodCode="EVN" classCode="OBS"> <templateId root="216.840.1.237331.10..22.4.2" /> <id nullFlavor="NA " /> <code codeSystem="local" code="TSH" displayName="THYROID STIMULATING HORMONE" /> <statusCode code="completed" /> < effectiveTime value="491567156221" /> <value unit="u[iU]/mL" xsi:type= "PQ" value="3.03" /> <referenceRange> <observationRange> <text>0.35-4.94</text> </observationRange> </ referenceRange> </observation> </component> </organizer> </entry > <entry> <organizer moodCode="EVN" classCode="BATTERY"> <templateId root="216.840.1.506938.10...4.1" /> <id nullFlavor="NA" /> <code codeSystem="local" code="93665-3" displayName="PT panel in platelet poor plasma by coagulation assay" /> <statusCode code="completed" /> <component> <observation moodCode="EVN" classCode="OBS"> <templateId root= "2.16.840.1.082044.10..22.4.2" /> <id nullFlavor="NA" /> < code codeSystem="local" code="5902-2" displayName="Prothrombin time (PT) in platelet poor plasma by coagulation assay" /> <statusCode code= "completed" /> <effectiveTime value="404109948652" /> <value unit="s" xsi:type="PQ" value="24.7" /> <interpretationCode codeSystem= "local" code="" /> <referenceRange> <observationRange> <text>12.2-14.7</text> </observationRange> </ referenceRange> </observation> </component> <component> <observation moodCode="EVN" classCode="OBS"> <templateId root= "2.16.840.1.419032.10..22.4.2" /> <id nullFlavor="NA" /> < code codeSystem="local" code="45079-4" displayName="INR in platelet poor plasma or blood by coagulation assay" /> <statusCode code="completed" /> <effectiveTime value="793607340590" /> <value unit="" xsi:type="PQ " value="2.3" /> <interpretationCode codeSystem="local" code="" /> <referenceRange> <observationRange> <text>0.8- 1.4</text> </observationRange> </referenceRange> </ observation> </component> </organizer> </entry> <entry> <organizer moodCode="EVN" classCode="BATTERY"> <templateId root= "2.16.840.1.563851.10..22.4.1" /> <id nullFlavor="NA" /> <code codeSystem="local" code="30837-8" displayName="PT panel in platelet poor plasma by coagulation assay" /> <statusCode code="completed" /> <component> <observation moodCode="EVN" classCode="OBS"> <templateId root= "216.840.1.645429.10..22.4.2" /> <id nullFlavor="NA" /> < code codeSystem="local" code="5902-2" displayName="Prothrombin time (PT) in platelet poor plasma by coagulation assay" /> <statusCode code= "completed" /> <effectiveTime value="618496192139" /> <value unit="s" xsi:type="PQ" value="27.6" /> <interpretationCode codeSystem= "local" code="" /> <referenceRange> <observationRange> <text>12.2-14.7</text> </observationRange> </ referenceRange> </observation> </component> <component> <observation moodCode="EVN" classCode="OBS"> <templateId root= "216.840.1.920435.10..22.4.2" /> <id nullFlavor="NA" /> < code codeSystem="local" code="29922-3" displayName="INR in platelet poor plasma or blood by coagulation assay" /> <statusCode code="completed" /> <effectiveTime value="656647420670" /> <value unit="" xsi:type="PQ " value="2.6" /> <interpretationCode codeSystem="local" code="" /> <referenceRange> <observationRange> <text>0.8- 1.4</text> </observationRange> </referenceRange> </ observation> </component> </organizer> </entry> <entry> <organizer moodCode="EVN" classCode="BATTERY"> <templateId root= "16.840.1.811371.10..22.4.1" /> <id nullFlavor="NA" /> <code codeSystem="local" code="ORD3" displayName="Comprehensive Metabolic Panel" /> <statusCode code="completed" /> <component> <observation moodCode="EVN" classCode="OBS"> <templateId root= "216.840.1.439718.10..22.4.2" /> <id nullFlavor="NA" /> < code codeSystem="local" code="Res44" displayName="Albumin" /> < statusCode code="completed" /> <effectiveTime value="670738016303" /> <value unit="g/dL" xsi:type="PQ" value="4.0" /> < referenceRange> <observationRange> <text>3.6-5.1</text> </observationRange> </referenceRange> </observation > </component> <component> <observation moodCode="EVN" classCode="OBS"> <templateId root="216.840.1.797618.10...4.2" /> <id nullFlavor="NA" /> <code codeSystem="local" code="Res45" displayName="ALP" /> <statusCode code="completed" /> < effectiveTime value="433924151748" /> <value unit="U/L" xsi:type="PQ" value="63" /> <referenceRange> <observationRange> <text>35-130</text> </observationRange> </referenceRange > </observation> </component> <component> <observation moodCode="EVN" classCode="OBS"> <templateId root= "05.30.840.1.365881.1022.4.2" /> <id nullFlavor="NA" /> < code codeSystem="local" code="Res46" displayName="ALT" /> <statusCode code="completed" /> <effectiveTime value="136795875427" /> < value unit="U/L" xsi:type="PQ" value="15" /> <referenceRange> <observationRange> <text>6-45</text> </ observationRange> </referenceRange> </observation> </ component> <component> <observation moodCode="EVN" classCode="OBS"> <templateId root="216.840.1.080443...4.2" /> <id nullFlavor="NA" /> <code codeSystem="local" code="Res61" displayName= "Anion Gap" /> <statusCode code="completed" /> <effectiveTime value="000317149293" /> <value unit="" xsi:type="PQ" value="16" /> <interpretationCode codeSystem="local" code="H" /> < referenceRange> <observationRange> <text>6-14</text> </observationRange> </referenceRange> </observation> </component> <component> <observation moodCode="EVN" classCode= "OBS"> <templateId root="216.840.1.430317.01.31.22.4.2" /> < id nullFlavor="NA" /> <code codeSystem="local" code="Res48" displayName ="AST" /> <statusCode code="completed" /> <effectiveTime value ="047908160455" /> <value unit="U/L" xsi:type="PQ" value="17" /> <referenceRange> <observationRange> <text>2-40</text > </observationRange> </referenceRange> </observation > </component> <component> <observation moodCode="EVN" classCode="OBS"> <templateId root="216.840.1.609516.10..22.4.2" /> <id nullFlavor="NA" /> <code codeSystem="local" code="Res26" displayName="BUN" /> <statusCode code="completed" /> < effectiveTime value="039770263228" /> <value unit="mg/dL" xsi:type="PQ " value="10" /> <referenceRange> <observationRange> <text>5-25</text> </observationRange> </referenceRange > </observation> </component> <component> <observation moodCode="EVN" classCode="OBS"> <templateId root= "216.840.1.440927.01.31.22.4.2" /> <id nullFlavor="NA" /> < code codeSystem="local" code="Res5" displayName="Calcium" /> < statusCode code="completed" /> <effectiveTime value="219909669844" /> <value unit="mg/dL" xsi:type="PQ" value="8.7" /> < referenceRange> <observationRange> <text>8.3-10.4</text > </observationRange> </referenceRange> </observation > </component> <component> <observation moodCode="EVN" classCode="OBS"> <templateId root="05.30.840.1.417843.10.20.22.4.2" /> <id nullFlavor="NA" /> <code codeSystem="local" code="Res21" displayName="Chloride" /> <statusCode code="completed" /> < effectiveTime value="403441255768" /> <value unit="mmol/L" xsi:type="PQ " value="98" /> <referenceRange> <observationRange> <text>95-114</text> </observationRange> </ referenceRange> </observation> </component> <component> <observation moodCode="EVN" classCode="OBS"> <templateId root= "216.840.1.596585.10.2022.4.2" /> <id nullFlavor="NA" /> < code codeSystem="local" code="Res49" displayName="CO2" /> <statusCode code="completed" /> <effectiveTime value="718647284999" /> < value unit="mEq/L" xsi:type="PQ" value="27" /> <referenceRange> <observationRange> <text>22-33</text> </ observationRange> </referenceRange> </observation> </ component> <component> <observation moodCode="EVN" classCode="OBS"> <templateId root="05.30.840.1.917075.10.4.2" /> <id nullFlavor="NA" /> <code codeSystem="local" code="Ezd196" displayName= "Creat" /> <statusCode code="completed" /> <effectiveTime value="832343522793" /> <value unit="mg/dL" xsi:type="PQ" value="0.83" /> <referenceRange> <observationRange> <text> 0.50-1.50</text> </observationRange> </referenceRange> </observation> </component> <component> <observation moodCode="EVN" classCode="OBS"> <templateId root= "05.30.840.1.686497.10.2022.4.2" /> <id nullFlavor="NA" /> < code codeSystem="local" code="Jjx047" displayName="eGFR" /> < statusCode code="completed" /> <effectiveTime value="897573401893" /> <value unit="mL/min/1.73m2" xsi:type="PQ" value="68" /> < referenceRange> <observationRange> <text>>59</text> </observationRange> </referenceRange> </observation> </component> <component> <observation moodCode="EVN" classCode ="OBS"> <templateId root="216.840.1.200191.10.2022.4.2" /> < id nullFlavor="NA" /> <code codeSystem="local" code="Res7" displayName= "Globulin" /> <statusCode code="completed" /> <effectiveTime value="994317779036" /> <value unit="g/dL" xsi:type="PQ" value="2.5" / > <referenceRange> <observationRange> <text>2.3 -3.5</text> </observationRange> </referenceRange> </ observation> </component> <component> <observation moodCode= "EVN" classCode="OBS"> <templateId root="05.30.840.1.851332.1022.4.2 " /> <id nullFlavor="NA" /> <code codeSystem="local" code= "Res60" displayName="Glucose" /> <statusCode code="completed" /> <effectiveTime value="649969942842" /> <value unit="mg/dL" xsi:type ="PQ" value="104" /> <referenceRange> <observationRange> <text>70-110</text> </observationRange> </ referenceRange> </observation> </component> <component> <observation moodCode="EVN" classCode="OBS"> <templateId root= "216.840.1.985566.10.2022.4.2" /> <id nullFlavor="NA" /> < code codeSystem="local" code="Res52" displayName="Osmo" /> <statusCode code="completed" /> <effectiveTime value="381799812008" /> < value unit="" xsi:type="PQ" value="285" /> <referenceRange> <observationRange> <text>280-295</text> </ observationRange> </referenceRange> </observation> </ component> <component> <observation moodCode="EVN" classCode="OBS"> <templateId root="2.16.840.1.048012.10.20.22.4.2" /> <id nullFlavor="NA" /> <code codeSystem="local" code="Res20" displayName= "Potassium" /> <statusCode code="completed" /> <effectiveTime value="568415919829" /> <value unit="mmol/L" xsi:type="PQ" value="3.2" /> <interpretationCode codeSystem="local" code="L" /> < referenceRange> <observationRange> <text>3.5-5.3</text> </observationRange> </referenceRange> </observation > </component> <component> <observation moodCode="EVN" classCode="OBS"> <templateId root="2.16.840.1.706060.10.20.22.4.2" /> <id nullFlavor="NA" /> <code codeSystem="local" code="Res19" displayName="Sodium" /> <statusCode code="completed" /> < effectiveTime value="930885460094" /> <value unit="mmol/L" xsi:type="PQ " value="138" /> <referenceRange> <observationRange> <text>134-148</text> </observationRange> </ referenceRange> </observation> </component> <component> <observation moodCode="EVN" classCode="OBS"> <templateId root= "16.840.1.811958.10.22.4.2" /> <id nullFlavor="NA" /> < code codeSystem="local" code="Res51" displayName="TBil" /> <statusCode code="completed" /> <effectiveTime value="240147014583" /> < value unit="mg/dL" xsi:type="PQ" value="0.6" /> <referenceRange> <observationRange> <text>0.2-1.2</text> </ observationRange> </referenceRange> </observation> </ component> <component> <observation moodCode="EVN" classCode="OBS"> <templateId root="05.30.840.1.829335.22.4.2" /> <id nullFlavor="NA" /> <code codeSystem="local" code="Res24" displayName= "TP" /> <statusCode code="completed" /> <effectiveTime value= "004321104535" /> <value unit="g/dL" xsi:type="PQ" value="6.5" /> <referenceRange> <observationRange> <text>6.0-8.3</ text> </observationRange> </referenceRange> </ observation> </component> </organizer> </entry> <entry> <organizer moodCode="EVN" classCode="BATTERY"> <templateId root= "16.840.1.029248.22.4.1" /> <id nullFlavor="NA" /> <code codeSystem="local" code="94540-9" displayName="PT panel in platelet poor plasma by coagulation assay" /> <statusCode code="completed" /> <component> <observation moodCode="EVN" classCode="OBS"> <templateId root= "05.30.840.1.282848.01.31.22.4.2" /> <id nullFlavor="NA" /> < code codeSystem="local" code="5902-2" displayName="Prothrombin time (PT) in platelet poor plasma by coagulation assay" /> <statusCode code= "completed" /> <effectiveTime value="165579212377" /> <value unit="s" xsi:type="PQ" value="25.7" /> <interpretationCode codeSystem= "local" code="" /> <referenceRange> <observationRange> <text>12.2-14.7</text> </observationRange> </ referenceRange> </observation> </component> <component> <observation moodCode="EVN" classCode="OBS"> <templateId root= "2.16.840.1.158887.10..22.4.2" /> <id nullFlavor="NA" /> < code codeSystem="local" code="49516-6" displayName="INR in platelet poor plasma or blood by coagulation assay" /> <statusCode code="completed" /> <effectiveTime value="190339375984" /> <value unit="" xsi:type="PQ " value="2.4" /> <interpretationCode codeSystem="local" code="" /> <referenceRange> <observationRange> <text>0.8- 1.4</text> </observationRange> </referenceRange> </ observation> </component> </organizer> </entry> <entry> <organizer moodCode="EVN" classCode="BATTERY"> <templateId root= "2.16.840.1.349281.10..22.4.1" /> <id nullFlavor="NA" /> <code codeSystem="local" code="HELICO" displayName="HELICOBACTER UREASE SCREEN" /> <statusCode code="completed" /> <component> <observation moodCode ="EVN" classCode="OBS"> <templateId root= "216.840.1.441459.10..22.4.2" /> <id nullFlavor="NA" /> < code codeSystem="local" code="MB" displayName="Microbiology" /> < statusCode code="completed" /> <effectiveTime value="406411765988" /> <value xsi:type="ST" value="<pre><b>HELICOBACTER UREASE SCREEN</b> See BelowHELICOBACTER UREASE SCREEN(F) Vazquez Date/Time: 05/13/2016 11:55 [place] Date/Time: // :SOURCE: BIOPSYSPEC DESC: See BelowHELICOBACTER UREASE SCREEN(F) Vazquez Date/Time: 05/13/2016 11:55 [place] Date/Time: 05/14/2016 10:30SOURCE: BIOPSYSPEC DESC: HELICOBACTER [facility] [id number] [place] [address]</pre>" /> <referenceRange> <observationRange> <text /> </observationRange> </referenceRange> </observation> </component> </organizer> </entry> <entry> < organizer moodCode="EVN" classCode="BATTERY"> <templateId root= "216.840.1.045222.10..22.4.1" /> <id nullFlavor="NA" /> <code codeSystem="local" code="21675-8" displayName="PT panel in platelet poor plasma by coagulation assay" /> <statusCode code="completed" /> <component> <observation moodCode="EVN" classCode="OBS"> <templateId root= "2.16.840.1.939327.10.20.22.4.2" /> <id nullFlavor="NA" /> < code codeSystem="local" code="5902-2" displayName="Prothrombin time (PT) in platelet poor plasma by coagulation assay" /> <statusCode code= "completed" /> <effectiveTime value="659412808695" /> <value unit="s" xsi:type="PQ" value="22.9" /> <interpretationCode codeSystem= "local" code="" /> <referenceRange> <observationRange> <text>12.2-14.7</text> </observationRange> </ referenceRange> </observation> </component> <component> <observation moodCode="EVN" classCode="OBS"> <templateId root= "16.840.1.509690.10.22.4.2" /> <id nullFlavor="NA" /> < code codeSystem="local" code="06010-1" displayName="INR in platelet poor plasma or blood by coagulation assay" /> <statusCode code="completed" /> <effectiveTime value="274346956532" /> <value unit="" xsi:type="PQ " value="2.1" /> <interpretationCode codeSystem="local" code="" /> <referenceRange> <observationRange> <text>0.8- 1.4</text> </observationRange> </referenceRange> </ observation> </component> </organizer> </entry> <entry> <organizer moodCode="EVN" classCode="BATTERY"> <templateId root= "05.30.840.1.628033.1022.4.1" /> <id nullFlavor="NA" /> <code codeSystem="local" code="13182-0" displayName="PT panel in platelet poor plasma by coagulation assay" /> <statusCode code="completed" /> <component> <observation moodCode="EVN" classCode="OBS"> <templateId root= "16.840.1.094692.10.2022.4.2" /> <id nullFlavor="NA" /> < code codeSystem="local" code="5902-2" displayName="Prothrombin time (PT) in platelet poor plasma by coagulation assay" /> <statusCode code= "completed" /> <effectiveTime value="758826282490" /> <value unit="s" xsi:type="PQ" value="29.7" /> <interpretationCode codeSystem= "local" code="" /> <referenceRange> <observationRange> <text>12.2-14.7</text> </observationRange> </ referenceRange> </observation> </component> <component> <observation moodCode="EVN" classCode="OBS"> <templateId root= "216.840.1.264668.01.31.22.4.2" /> <id nullFlavor="NA" /> < code codeSystem="local" code="23505-8" displayName="INR in platelet poor plasma or blood by coagulation assay" /> <statusCode code="completed" /> <effectiveTime value="484979793372" /> <value unit="" xsi:type="PQ " value="2.8" /> <interpretationCode codeSystem="local" code="" /> <referenceRange> <observationRange> <text>0.8- 1.4</text> </observationRange> </referenceRange> </ observation> </component> </organizer> </entry> <entry> <organizer moodCode="EVN" classCode="BATTERY"> <templateId root= "216.840.1.805751.10.4.1" /> <id nullFlavor="NA" /> <code codeSystem="local" code="77653-2" displayName="PT panel in platelet poor plasma by coagulation assay" /> <statusCode code="completed" /> <component> <observation moodCode="EVN" classCode="OBS"> <templateId root= "216.840.1.689505.10.22.4.2" /> <id nullFlavor="NA" /> < code codeSystem="local" code="5902-2" displayName="Prothrombin time (PT) in platelet poor plasma by coagulation assay" /> <statusCode code= "completed" /> <effectiveTime value="528133334294" /> <value unit="s" xsi:type="PQ" value="25.3" /> <interpretationCode codeSystem= "local" code="" /> <referenceRange> <observationRange> <text>12.2-14.7</text> </observationRange> </ referenceRange> </observation> </component> <component> <observation moodCode="EVN" classCode="OBS"> <templateId root= "216.840.1.906293.10..4.2" /> <id nullFlavor="NA" /> < code codeSystem="local" code="87984-1" displayName="INR in platelet poor plasma or blood by coagulation assay" /> <statusCode code="completed" /> <effectiveTime value="443306118104" /> <value unit="" xsi:type="PQ " value="2.3" /> <interpretationCode codeSystem="local" code="" /> <referenceRange> <observationRange> <text>0.8- 1.4</text> </observationRange> </referenceRange> </ observation> </component> </organizer> </entry> <entry> <organizer moodCode="EVN" classCode="BATTERY"> <templateId root= "216.840.1.290290.10.2022.4.1" /> <id nullFlavor="NA" /> <code codeSystem="local" code="93829-6" displayName="PT panel in platelet poor plasma by coagulation assay" /> <statusCode code="completed" /> <component> <observation moodCode="EVN" classCode="OBS"> <templateId root= "16.840.1.320965.10..22.4.2" /> <id nullFlavor="NA" /> < code codeSystem="local" code="5902-2" displayName="Prothrombin time (PT) in platelet poor plasma by coagulation assay" /> <statusCode code= "completed" /> <effectiveTime value="174492893195" /> <value unit="s" xsi:type="PQ" value="30.9" /> <interpretationCode codeSystem= "local" code="" /> <referenceRange> <observationRange> <text>12.2-14.7</text> </observationRange> </ referenceRange> </observation> </component> <component> <observation moodCode="EVN" classCode="OBS"> <templateId root= "05.30.840.1.760260.10.22.4.2" /> <id nullFlavor="NA" /> < code codeSystem="local" code="33148-9" displayName="INR in platelet poor plasma or blood by coagulation assay" /> <statusCode code="completed" /> <effectiveTime value="336504830242" /> <value unit="" xsi:type="PQ " value="3.0" /> <interpretationCode codeSystem="local" code="" /> <referenceRange> <observationRange> <text>0.8- 1.4</text> </observationRange> </referenceRange> </ observation> </component> </organizer> </entry> <entry> <organizer moodCode="EVN" classCode="BATTERY"> <templateId root= "16.840.1.589885.10.20.22.4.1" /> <id nullFlavor="NA" /> <code codeSystem="local" code="61024-1" displayName="PT panel in platelet poor plasma by coagulation assay" /> <statusCode code="completed" /> <component> <observation moodCode="EVN" classCode="OBS"> <templateId root= "2.16.840.1.694458.10.20.22.4.2" /> <id nullFlavor="NA" /> < code codeSystem="local" code="5902-2" displayName="Prothrombin time (PT) in platelet poor plasma by coagulation assay" /> <statusCode code= "completed" /> <effectiveTime value="013825600108" /> <value unit="s" xsi:type="PQ" value="25.2" /> <interpretationCode codeSystem= "local" code="" /> <referenceRange> <observationRange> <text>12.2-14.7</text> </observationRange> </ referenceRange> </observation> </component> <component> <observation moodCode="EVN" classCode="OBS"> <templateId root= "2.16.840.1.216318.10.20.22.4.2" /> <id nullFlavor="NA" /> < code codeSystem="local" code="66065-3" displayName="INR in platelet poor plasma or blood by coagulation assay" /> <statusCode code="completed" /> <effectiveTime value="542310674079" /> <value unit="" xsi:type="PQ " value="2.3" /> <interpretationCode codeSystem="local" code="" /> <referenceRange> <observationRange> <text>0.8- 1.4</text> </observationRange> </referenceRange> </ observation> </component> </organizer> </entry></section> Encounters ACCT No. Visit Date/Time Discharge Status Pt. Type Provider Facility Loc./Unit Complaint [id number] 05/13/2016 08:07:00 05/13/2016 12:40:00 DIS Outpatient Dagmar OSORIO, Dawit Barbour [facility] E.ENDO [id number] 05/13/2016 08:03:00 05/13/2016 08:03:00 DIS Outpatient Emerita OSORIO, Edson E [facility] E.RAC [id number] 04/06/2016 10:05:00 04/06/2016 10:50:00 DIS Outpatient Stacy Aparicio [facility] ER [id number] 05/14/2016 20:48:14 ACT Document Registration [id number] 04/27/2018 18:32:00 04/27/2018 19:10:00 DIS Emergency STACY APARICIO [employer]NF[employer]CEMENT AGENT [facility] ER L HAND CAT SCRATCH/ON BLOOD THINNERS [id number] 04/22/2018 14:53:00 04/22/2018 23:59:59 CLS Outpatient BHARGAV PICKENS MD [facility] RAD COUGH,COPD [id number] 11/28/2017 10:39:00 11/28/2017 23:59:59 CLS Outpatient LAUREN HOOK DRUG ENFORCEMENT AGENT [facility] RAD SCREENING [id number] 10/14/2017 15:51:00 10/14/2017 23:59:59 CLS Preadmit LAUREN HOOK APRN [facility] RAD SCREENING [id number] 09/03/2017 10:56:00 09/03/2017 12:15:00 DIS Emergency STACY APARICIO [employer]UG ENFORCEMENT AGENT [facility] ER HEAD INJURY [id number] 07/16/2017 09:53:00 07/16/2017 23:59:59 CLS Outpatient BHARGAV PICKENS MD [facility] RAD COUGH [id number] 10/10/2016 09:07:00 10/10/2016 23:59:59 CLS Outpatient LAUREN HOOK DRUG ENFORCEMENT AGENT [facility] RAD SCREENING [id number] 08/21/2016 00:15:00 08/21/2016 23:59:59 CLS Preadmit LIZ DELATORRE MD [facility] LAB MED MONITORING [id number] 08/13/2016 10:15:00 08/20/2016 00:01:00 DIS Outpatient LIZ DELATORRE MD [facility] LAB MED MONITORING [id number] 05/02/2016 12:29:00 05/02/2016 23:59:59 CLS Outpatient NORBERTO MURRIETA PA-C [facility] LAB I48.91 [id number] 03/18/2016 11:26:00 04/08/2016 00:01:00 DIS Outpatient LIZ DELATORRE MD [facility] LAB MED MONITORING [id number] 04/03/2016 12:37:00 04/03/2016 23:59:59 CLS Outpatient BHARGAV PICKENS MD [facility] RT DYSPNEA [id number] 03/21/2016 15:29:00 03/21/2016 23:59:59 CLS Outpatient BHARGAV PICKENS MD [facility] RAD DYSPNEA [id number] 02/08/2016 08:39:00 02/08/2016 23:59:59 CLS Outpatient CLARITA MERCEDES [facility] LAB E78.2, Z00.00, RO9.81, I10, I48.0, G47.62 [id number] 11/17/2015 12:21:00 01/03/2016 00:01:00 DIS Outpatient LIZ DELATORRE MD [facility] LAB MED MONITORING [id number] 10/22/2015 12:59:00 10/22/2015 12:59:00 CAN Preadmit ARSLAN PRITCHARD DO [facility] ER [id number] 10/22/2015 07:18:00 10/22/2015 08:41:00 DIS Emergency ARSLAN PRITCHARD DO [facility] ER NOSE BLEEDS [id number] 10/05/2015 09:16:00 10/05/2015 23:59:59 CLS Outpatient DOROTHY JAIN MD [facility] RAD SCREENING [id number] 08/04/2015 12:51:00 09/10/2015 00:01:00 DIS Outpatient LIZ DELATORRE MD [facility] LAB MED MONITORING [id number] 05/02/2015 12:03:00 05/02/2015 23:59:59 CLS Outpatient LIZ DELATORRE MD [facility] LAB MED MONITORING [id number] 01/09/2015 14:28:00 01/11/2015 00:01:00 DIS Outpatient LIZ DELATORRE MD [facility] LAB MED MONITORING [id number] 11/21/2014 12:28:00 11/28/2014 00:01:00 DIS Outpatient LIZ DELATORRE MD [facility] LAB MED MONITORING [id number] 09/13/2014 09:56:00 09/13/2014 23:59:59 CLS Outpatient DOROTHY JAIN MD [facility] RAD SCREENING [id number] 07/12/2014 15:05:00 08/11/2014 00:01:00 DIS Outpatient LIZ DELATORRE MD [facility] LAB MED MONITORING [id number] 02/02/2014 11:44:00 05/03/2014 00:01:00 DIS Outpatient LIZ DELATORRE MD [facility] LAB MED MONITORING [id number] 12/14/2013 11:04:00 01/31/2014 00:01:00 DIS Outpatient LIZ DELATORRE MD [facility] LAB MED MONITORING [id number] 08/23/2013 08:55:00 09/08/2013 00:01:00 DIS Outpatient LIZ DELATORRE MD [facility] LAB MED MONITORING [id number] 08/23/2013 08:32:00 08/23/2013 23:59:59 CLS Outpatient ALBINA MINOR MD [facility] RAD SCREENING [id number] 04/12/2013 14:51:00 04/13/2013 00:01:00 DIS Outpatient LIZ DELATORRE MD [facility] LAB MED MONITORING [id number] 02/10/2013 07:58:00 02/10/2013 23:59:59 CLS Outpatient ALBINA MINOR MD [facility] RAD LLQ PAIN [id number] 10/21/2012 09:59:00 12/25/2012 00:01:00 DIS Outpatient LIZ DELATORRE MD [facility] LAB MED MONITORING [id number] 07/14/2012 14:02:00 08/23/2012 00:01:00 DIS Outpatient LIZ DELATORRE MD [facility] LAB MED MONITORING [id number] 10/22/2015 08:43:00 Document Registration [id number] 07/14/2012 13:55:00 Document Registration [id number] 04/16/2012 10:43:00 Document Registration [id number] 12/19/2011 14:00:00 Document Registration [id number] 08/16/2011 10:10:00 Document Registration [id number] 05/24/2011 15:29:00 Document Registration [id number] 05/20/2011 13:47:00 Document Registration [id number] 01/11/2011 13:57:00 Document Registration [id number] 09/14/2010 13:04:00 Document Registration [id number] 06/14/2010 12:03:00 Document Registration [id number] 03/09/2010 16:19:00 Document Registration [id number] 02/23/2010 08:59:00 Document Registration [id number] 10/13/2009 10:36:00 Document Registration
--- NOTE | 2018-06-29 03:09 | ED General ---
General Chief Complaint: Rect Problems Stated Complaint: SOB Nursing Triage Note: PT STATES SHE IS SCHEDULED FOR A COLONSCOPY THIS AM AT 0630 TO ASSESS FOR BLOOD PRESENT IN HER STOOLS, STATES SHE WAS PREPPING HER BOWELS FOR THE SCOPE, HAD BRIGHT RED BLOOD IN THE STOOL AROUND 0200, BECAME LIGHTHEADED WHEN SHE GOT UP TO USE THE BATHROOM, CONTACTED EMS Nursing Sepsis Screen: No Definite Risk Source of Information: Patient, Family Exam Limitations: No Limitations History of Present Illness Date Seen by Provider: Jun 29, 2018 Time Seen by Provider: 02:56 Initial Comments Patient presents to the ER by ambulance with chief complaint of having a sensation of pressure and feeling very anxious this morning. She was getting up to go the bathroom. She's not been sleeping all day because she just been using Dulcolax and magnesium such rate to prep for a colonoscopy. 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 She is not having any chest pain has no history of coronary artery disease. She does not smoke. Because she felt weird her checked her blood pressure and it was 190/100 and this concerned her so she decided to call an ambulance. She's had colonoscopies before and they never found any polyps. She is on warfarin for her atrial fibrillation/sinus irregular tachycardia. She just had a PT/INR last week which was 2.6. She does not have any history of stents, cardiac catheterizations or valvular replacement. She does have a history of generalized anxiety disorder with panic attacks. She did not take anything for her panic attack she is not sure what was causing her feeling if it was from the laxatives or just anticipation of the procedure. She denies any cough, shortness of breath, fevers or chills. She says the symptoms only lasted for about an hour or less and were gone by the time she got here. Allergies and Home Medications Allergies Coded Allergies: No Known Drug Allergies (Unverified , 10/22/15) Home Medications Amoxicillin/Potassium Clav 1 Each Tablet, 1 EACH PO BID Prescribed by: STACY GUSTAFSON on 04/27/18 1908 Cephalexin 500 Mg Capsule, 500 MG PO QID Prescribed by: ARSLAN PRITCHARD on 10/22/15 0815 Patient Home Medication List Home Medication List Reviewed: Yes Review of Systems Review of Systems Constitutional: No chills, No diaphoresis EENTM: No ear discharge, No ear pain Respiratory: No cough, No short of breath Cardiovascular: see HPI; No chest pain, No edema, No Hx of Intervention, No palpitations Gastrointestinal: No abdominal pain, No constipation; diarrhea; No nausea, No vomiting Genitourinary: No discharge, No dysuria; hesitancy (difficulty emptying her bladder) Psychiatric/Neurological: Anxiety; Denies Depressed, Denies Headache, Denies Numbness Past Djfhptx-Pzenrx-Igzbsv Hx Patient Social History Alcohol Use: Denies Use Recreational Drug Use: No Smoking Status: Never a Smoker 2nd Hand Smoke Exposure: No Recent Foreign Travel: No Contact w/Someone Who Travel: No Recent Infectious Disease Expo: No Recent Hopitalizations: No Immunizations Up To Date Tetanus Booster (TDap): Less than 5yrs Seasonal Allergies Seasonal Allergies: Yes Past Medical History Surgeries: Yes Gallbladder, Hysterectomy Respiratory: No Cardiac: Yes Atrial Fibrillation Neurological: No : No 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 oz. 56.922382sx; BMI Method:Stated General Appearance: No Apparent Distress, WD/WN, Anxious Eyes: Bilateral Eye Normal Inspection, Bilateral Eye PERRL, Bilateral Eye EOMI HEENT: PERRL/EOMI, TMs Normal, Normal ENT Inspection, Pharynx Normal, Moist Mucous Membranes Neck: Full Range of Motion, Normal Inspection, Non Tender, Supple Respiratory: Chest Non Tender, Lungs Clear, Normal Breath Sounds, No Accessory Muscle Use, No Respiratory Distress Cardiovascular: Regular Rate, Rhythm, No Edema, Normal Peripheral Pulses Gastrointestinal: Normal Bowel Sounds, Non Tender, Soft Extremity: Normal Capillary Refill, Normal Inspection, No Pedal Edema Neurologic/Psychiatric: Alert, Oriented x3, No Motor/Sensory Deficits Skin: Normal Color, Warm/Dry Progress/Results/Core Measures Suspected Sepsis Recent Fever Within 48 Hours: No Infection Criteria Present: None New/Unexplained Altered Menta: No Sepsis Screen: No Definite Risk SIRS Temperature:97.8 Pulse: 85 Respiratory Rate: 20 Laboratory Tests 06/29/18 02:49: White Blood Count 6.8 Blood Pressure 190 /86 Mean: 120 Laboratory Tests 06/29/18 02:49: Creatinine 0.71, INR Comment 1.7H, Platelet Count 322, Total Bilirubin 0.9 Results/Orders Lab Results Laboratory Tests Test 06/29/18 02:49 06/29/18 03:28 Range/Units White Blood Count 6.8 4.3-11.0 10^3/uL Red Blood Count 4.47 4.35-5.85 10^6/uL Hemoglobin 14.4 11.5-16.0 G/DL Hematocrit 40 35-52 % Mean Corpuscular Volume 89 80-99 FL Mean Corpuscular Hemoglobin 32 25-34 PG Mean Corpuscular Hemoglobin Concent 36 32-36 G/DL Red Cell Distribution Width 13.0 10.0-14.5 % Platelet Count 322 130-400 10^3/uL Mean Platelet Volume 10.4 7.4-10.4 FL Neutrophils (%) (Auto) 45 42-75 % Lymphocytes (%) (Auto) 38 12-44 % Monocytes (%) (Auto) 15 H 0-12 % Eosinophils (%) (Auto) 2 0-10 % Basophils (%) (Auto) 0 0-10 % Neutrophils # (Auto) 3.0 1.8-7.8 X 10^3 Lymphocytes # (Auto) 2.6 1.0-4.0 X 10^3 Monocytes # (Auto) 1.0 0.0-1.0 X 10^3 Eosinophils # (Auto) 0.1 0.0-0.3 10^3/uL Basophils # (Auto) 0.0 0.0-0.1 10^3/uL Prothrombin Time 19.6 H 12.2-14.7 SEC INR Comment 1.7 H 0.8-1.4 Activated Partial Thromboplast Time 41 H 24-35 SEC Sodium Level 127 L 135-145 MMOL/L Potassium Level 2.7 L 3.6-5.0 MMOL/L Chloride Level 88 L 98-107 MMOL/L Carbon Dioxide Level 23 21-32 MMOL/L Anion Gap 16 H 5-14 MMOL/L Blood Urea Nitrogen 7 7-18 MG/DL Creatinine 0.71 0.60-1.30 MG/DL Estimat Glomerular Filtration Rate > 60 BUN/Creatinine Ratio 10 Glucose Level 103 70-105 MG/DL Calcium Level 9.1 8.5-10.1 MG/DL Corrected Calcium 8.9 8.5-10.1 MG/DL Magnesium Level 2.4 1.8-2.4 MG/DL Total Bilirubin 0.9 0.1-1.0 MG/DL Aspartate Amino Transf (AST/SGOT) 22 5-34 U/L Alanine Aminotransferase (ALT/SGPT) 18 0-55 U/L Alkaline Phosphatase 62 40-136 U/L Troponin I < 0.028 <0.028 NG/ML Total Protein 6.8 6.4-8.2 GM/DL Albumin 4.2 3.2-4.5 GM/DL Urine Color YELLOW Urine Clarity CLEAR Urine pH 8 5-9 Urine Specific [place] 1.010 L 1.016-1.022 Urine Protein NEGATIVE NEGATIVE Urine Glucose (UA) NEGATIVE NEGATIVE Urine Ketones 2+ H NEGATIVE Urine Nitrite NEGATIVE NEGATIVE Urine Bilirubin NEGATIVE NEGATIVE Urine Urobilinogen NORMAL NORMAL MG/DL Urine Leukocyte Esterase 1+ H NEGATIVE Urine RBC (Auto) NEGATIVE NEGATIVE Urine RBC NONE /HPF Urine WBC 5-10 H /HPF Urine Squamous Epithelial Cells 2-5 /HPF Urine Crystals NONE /LPF Urine Bacteria FEW H /HPF Urine Casts NONE /LPF Urine Mucus NEGATIVE /LPF Urine Culture Indicated YES My Orders Orders - KIRAN DOBSON Cbc With Automated Diff (06/29/18 02:54) Comprehensive Metabolic Panel (06/29/18 02:54) Magnesium (06/29/18 02:54) Protime With Inr (06/29/18 02:54) Partial Thromboplastin Time (06/29/18 02:54) Troponin I (06/29/18 02:54) Ua Culture If Indicated (06/29/18 02:54) Chest 1 View, Ap/Pa Only (06/29/18 02:54) Saline Lock/Iv-Start (06/29/18 02:54) Ekg Tracing (06/29/18 02:54) Continuous Ekg Monitoring (06/29/18 02:54) Potassium Cl 10meq/50ml Ivpb (Kcl 10 Meq (06/29/18 03:45) Potassium Chloride (Tablet) (K Dur Table (06/29/18 03:45) Saline Lock/Iv-Start (06/29/18 03:38) Ns Iv 1000 Ml (Sodium Chloride 0.9%) (06/29/18 03:38) Urine Culture (06/29/18 03:28) General/Regular (06/29/18 Breakfast) Nitrofurantoin Capsule,Macro (Macrobid C (06/29/18 04:00) Medications Given in ED Current Medications Medications Dose Ordered Sig/Vidhya Route Start Time Stop Time Status Last Admin Dose Admin Nitrofurantoin Macrocrystals 100 mg ONCE ONCE PO 06/29/18 04:00 06/29/18 04:01 DC 06/29/18 04:07 100 MG Potassium Chloride 50 ml @ 50 mls/hr ONCE ONCE IV 06/29/18 03:45 06/29/18 04:44 DC 06/29/18 03:55 50 MLS/HR Vital Signs/I&O 06/29/18 02:34 Temp 97.8 Pulse 85 Resp 20 B/P (MAP) 190/86 (120) Pulse Ox 97 O2 Delivery Nasal Cannula O2 Flow Rate 3.00 Capillary Refill : Less Than 3 Seconds Blood Pressure Mean: 120 Progress Note #1: Time: 03:10 Progress Note Sounds like anxiety disorder with hypertension. We'll observe her for a moment check some labs and a urinalysis and an EKG. We'll get a chest x-ray. She's never endorse any chest pain and says she has no pressure now just felt very uncomfortable. He spontaneously passed. If her blood pressure doesn't come down on its own we can recommend a dose of medication. Progress Note #2: Time: 03:48 Progress Note Patient on a diuretic and takes potassium but she's not taken it yesterday because of her clean out. We'll give her a 20 mEq capsule of potassium and 10 mg by IV. Her EKG looks okay. When this is done she can go home and reschedule her appointment. Her hemoglobin is 14.4 today. We'll give her her first dose of Macrobid for her UTI. Her blood pressure has dropped spontaneously down to 162/100. We'll just continue to watch since that's a significant, greater than 20% drop in systolic since she arrived. Progress Note #3: Time: 04:59 Progress Note The patient's potassium is done infusing. She's had some oral potassium as well. Her blood pressure has improved significantly down to 143/68 at rest. T waves normalized on telemetry. We are going to allow her to go home, double up on her potassium and reschedule her endoscopy. ECG Initial ECG Impression Date: Jun 29, 2018 Initial ECG Impression Time: 02:59 Initial ECG Rate: 78 Initial ECG Rhythm: Normal Sinus Initial ECG Intervals: Normal Initial ECG Impression: Normal Initial ECG Comparisson: No Previous ECG Available Comment Sinus rhythm without ST elevation or depression. Diagnostic Imaging Diagonstic Imaging: Xray Plain Films/CT/US/NM/MRI: chest (1v) Comments No acute cardiac processes. Reviewed: Reviewed by Me Departure Impression Primary Impression: Hypokalemia due to loss of potassium Additional Impressions: Acute hyponatremia History of rectal bleeding UTI (urinary tract infection) Qualified Codes: N30.00 - Acute cystitis without hematuria Disposition: 01 HOME, SELF-CARE Condition: Improved Departure-Patient Inst. Decision time for Depature: 05:01 Referrals: BHARGAV PICKENS MD (PCP/Family) Primary Care Physician Patient Instructions: Acute Cystitis (DC) Add. Discharge Instructions: Drink plenty of fluids and double up on your potassium supplements for the next 5 days or until after you've completed your endoscopy. Take the Macrobid one capsule twice a day for the next 7 days. All discharge instructions reviewed with patient and/or family. Voiced understanding. Scripts Nitrofurantoin Monohyd/M-Cryst (Macrobid 100 mg Capsule) 100 Mg Capsule 1 TAB PO BID for 7 Days, #14 CAP 0 Refills Prov: KIRAN DOBSON 06/29/18 KIRAN DOBSON Jun 29, 2018 03:09
[2018-06-29 03:16] LABS: BASOPHILS % (AUTO) 0 % (0-10); EOSINOPHILS # (AUTO) 0.1 10^3/uL (0.0-0.3); EOSINOPHILS % (AUTO) 2 % (0-10); HEMATOCRIT 40 % (35-52); HEMOGLOBIN 14.4 G/DL (11.5-16.0); LYMPHOCYTES # (AUTO) 2.6 X 10^3 (1.0-4.0); LYMPHOCYTES % (AUTO) 38 % (12-44); MEAN CORPUSCULAR HEMOGLOBIN 32 PG (25-34); MEAN CORPUSCULAR HGB CONC 36 G/DL (32-36); MEAN CORPUSCULAR VOLUME 89 FL (80-99); MEAN PLATELET VOLUME 10.4 FL (7.4-10.4); MONOCYTES % (AUTO) 15 % (0-12); NEUTROPHILS % (AUTO) 45 % (42-75); PLATELET COUNT 322 10^3/uL (130-400); WHITE BLOOD COUNT 6.8 10^3/uL (4.3-11.0)
[2018-06-29 03:21] LABS: INR 1.7 (0.8-1.4); PROTHROMBIN TIME PATIENT 19.6 SEC (12.2-14.7)
[2018-06-29 03:30] LABS: ALANINE AMINOTRANSFERASE 18 U/L (0-55); ALBUMIN 4.2 GM/DL (3.2-4.5); ALKALINE PHOSPHATASE 62 U/L (40-136); BILIRUBIN,TOTAL 0.9 MG/DL (0.1-1.0); BUN/CREATININE RATIO 10; CALCIUM 9.1 MG/DL (8.5-10.1); CARBON DIOXIDE 23 MMOL/L (21-32); CHLORIDE 88 MMOL/L (98-107); CREATININE SERUM 0.71 MG/DL (0.60-1.30); GFR ESTIMATED > 60; GLUCOSE 103 MG/DL (70-105); MAGNESIUM 2.4 MG/DL (1.8-2.4); POTASSIUM 2.7 MMOL/L (3.6-5.0); SODIUM 127 MMOL/L (135-145); TOTAL PROTEIN 6.8 GM/DL (6.4-8.2)
[2018-06-29 03:37] LABS: BILIRUBIN,URINE NEGATIVE (NEGATIVE); CLARITY,URINE CLEAR; COLOR,URINE YELLOW; GLUCOSE, URINE (UA) NEGATIVE (NEGATIVE); KETONES,URINE 2+ (NEGATIVE); LEUKOCYTE ESTERASE ,URINE 1+ (NEGATIVE); NITRITE,URINE NEGATIVE (NEGATIVE); PH,URINE 8 (5-9); PROTEIN,URINE NEGATIVE (NEGATIVE); UROBILINOGEN,URINE NORMAL (NORMAL)
[2018-06-29] MEDS ORDERED: NS IV 1000 ML 1,000 ML IV SCH (03:38)
[2018-06-29] MEDS ORDERED: KCL 20 MEQ TAB (K-DUR) PO ONE (03:45)
[2018-06-29] MEDS ORDERED: POTASSIUM CL 10MEQ/50ML IVPB 50 ML IV ONE (03:45)
[2018-06-29 03:46] LABS: BACTERIA,URINE FEW /HPF
[2018-06-29] MEDS ORDERED: NITROFURANTOIN 100 MG (MACROBID) CAPSULE PO ONE (04:00)
[2018-06-29] MEDS ORDERED: NITR-65 PO (05:03)
[2018-06-29 05:24] VITALS: BP 145/71
--- NOTE | 2018-06-29 07:17 | Diagnostic Imaging Report ---
Indication: Lightheadedness, weakness. Compared: 04/22/2018 Findings: The lungs are clear. The heart and vessels normal. There is no effusion or pneumothorax. Impression: No acute-appearing abnormality. Dictated by: Dictated on workstation # [id number]
== END 2018-06-29 05:24 | disposition home or self-care (01) ==
LOC: EDUNIT# 02:33 → ER 02:37
DX: E87.6 Hypokalemia (principal); E87.1 Hypo-osmolality and hyponatremia; N39.0 Urinary tract infection, site not specified; I48.91 Unspecified atrial fibrillation; F41.0 Panic disorder [episodic paroxysmal anxiety]; Z87.19 Personal history of other diseases of the digestive system; Z90.710 Acquired absence of both cervix and uterus
CPT/HCPCS: 36415; 71045; 80053; 81000; 83735; 84484; 85025; 85610; 85730; 87088; 93005

== ENCOUNTER → 2018-11-30 | Outpatient (CLI) | payer MEDICARE, OTHER ==
[~2018-11-30] MED LIST changes: +NITR-65 PO
--- NOTE | 2018-11-30 11:06 | Diagnostic Imaging Report ---
INDICATION: Routine screening. COMPARISON: 11/28/2017 and 10/10/2016. TECHNIQUE: 2D and 3D bilateral screening mammography was performed with CAD. FINDINGS: Both breasts remain heterogeneously dense, limiting the sensitivity of mammography. The overall parenchymal pattern is stable. No dominant mass or malignant appearing microcalcifications are seen. Benign-appearing parenchymal and vascular calcifications are again noted. The axillae are unremarkable. IMPRESSION: No mammographic features suspicious for malignancy are identified. ACR BI-RADS Category 2: Benign findings. Result letter will be mailed to the patient. Note: At least 10% of breast cancer is not imaged by mammography. Dictated by: Dictated on workstation # [id number]
== END ==
LOC: RAD 08:58
PROVIDERS: ATTEND Physician Assistant
DX: Z12.31 Encounter for screening mammogram for malignant neoplasm of breast (principal)
CPT/HCPCS: 77067

== ENCOUNTER 2019-09-15 16:32 | Emergency (ER) | payer MEDICARE, OTHER ==
[~2019-09-15] VITALS: Ht 154.9 cm; Wt 56.7 kg
[~2019-09-15 16:32] MED LIST changes: -MONT10TA24; +MONT10TA26; +OMEP40CA27; -OMEP40CA36
--- NOTE | 2019-09-15 16:48 | ED Upper Extremity ---
General Stated Complaint: R WRIST PAIN Source: patient Exam Limitations: no limitations History of Present Illness Date Seen by Provider: Sep 15, 2019 Time Seen by Provider: 16:46 Initial Comments To ER with reports of right wrist pain/right forearm pain. She was folding laundry when she fell backwards tripping over her cat and tried to catch herself with an extended right arm. Previous placement of hardware for forearm/wrist fracture in 1985 in [place]. She did hit her head and is on Coumadin. Onset: just prior to arrival Pain/Injury Location: right forearm, right wrist Method of Injury: fell Modifying Factors: Worse With Movement Allergies and Home Medications Allergies Coded Allergies: No Known Drug Allergies (Unverified , 10/22/15) Home Medications Amoxicillin/Potassium Clav 1 Each Tablet, 1 EACH PO BID Prescribed by: STACY GUSTAFSON on 04/27/18 1905 Cephalexin 500 Mg Capsule, 500 MG PO QID Prescribed by: ARSLAN PRITCHARD on 10/22/15 0815 Nitrofurantoin Monohyd/M-Cryst 100 Mg Capsule, 1 TAB PO BID Prescribed by: KIRAN DOBSON on 06/29/18 0503 Patient Home Medication List Home Medication List Reviewed: Yes Review of Systems Constitutional: see HPI EENTM: see HPI Respiratory: no symptoms reported Cardiovascular: no symptoms reported Genitourinary: no symptoms reported Musculoskeletal: see HPI Skin: no symptoms reported Psychiatric/Neurological: No Symptoms Reported Past Ximqqfj-Ksdzko-Rficwf Hx Patient Social History 2nd Hand Smoke Exposure: No Recent Foreign Travel: No Contact w/Someone Who Travel: No Recent Hopitalizations: No Immunizations Up To Date Tetanus Booster (TDap): Less than 5yrs Seasonal Allergies Seasonal Allergies: Yes Past Medical History Surgeries: Yes Gallbladder, Hysterectomy Respiratory: No Cardiac: Yes Atrial Fibrillation 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 oz. 56.898430xt; BMI Method:Stated General Appearance: WD/WN, no apparent distress HEENT: PERRL/EOMI, normal ENT inspection Neck: non-tender, full range of motion Respiratory: no respiratory distress Shoulder: normal inspection, non-tender Elbow/Forearm: normal inspection, Right, limited ROM (there is no swelling or deformity to the forearm wrist or hand. Normal sensation and motor function at the fingertips) Hand: normal inspection, non-tender Neurologic/Psychiatric: alert, normal mood/affect, oriented x 3 Skin: normal color, warm/dry Progress/Results/Core Measures Results/Orders My Orders Orders - STACY GUSTAFSON APRN Ct Head Wo (09/15/19 16:44) Forearm, Right, 2 Views (09/15/19 16:44) Vital Signs/I&O 09/15/19 16:42 Temp 36.6 Pulse 92 Resp 18 B/P (MAP) 156/86 (109) O2 Delivery Room Air Departure Communication (Admissions) 1725-pt concerned that shes been forgotten about, its been less than 1 hour that shes been here. Awaiting xray report to cross over. Impression Primary Impression: Contusion of wrist Qualified Codes: S60.211A - Contusion of right wrist, initial encounter Additional Impression: head injury on coumadin Disposition: HOME, SELF-CARE Condition: Stable Departure-Patient Inst. Decision time for Depature: 17:16 Referrals: BHARGAV PICKENS MD (PCP/Family) Primary Care Physician Patient Instructions: Wrist Fracture (DC) Add. Discharge Instructions: All 1. Wear the brace until the pain subsides. Pain persists into next week and follow-up with your regular doctor to discuss MRI or repeat x-ray. Return to ER for any worsening. STACY GUSTAFSON APRN Sep 15, 2019 16:48
--- NOTE | 2019-09-15 17:11 | Diagnostic Imaging Report ---
INDICATION: Fall with injury to head. TECHNIQUE: Multiple contiguous axial images were obtained through the brain without the use of intravenous contrast. Auto Exposure Controls were utilized during the CT exam to meet ALARA standards for radiation dose reduction. COMPARISON: Comparison made to 09/03/2017. FINDINGS: There are no extra-axial fluid collections. No intracranial hemorrhage. No intracranial mass or mass effect. No midline shift. The ventricles are normal in size and position. There were no focal parenchymal abnormalities in the brain. Calvarial windows are unremarkable. IMPRESSION: Negative noncontrast brain CT. Dictated by: Dictated on workstation # [id number]
--- NOTE | 2019-09-15 17:22 | Diagnostic Imaging Report ---
INDICATION: Right forearm injury. FINDINGS: Two views of the right forearm show no acute fracture or dislocation. There appears to be an old ununited fracture of the ulnar styloid. IMPRESSION: No acute abnormality seen in the right forearm. Dictated by: Dictated on workstation # [id number]
[2019-09-15 17:36] VITALS: BP 139/81
--- OUTSIDE RECORDS SUMMARY | 2019-09-15 21:07 | XMS REPORT | Encounter Summary ---
Author Author [facility] Organization [facility] Address Unknown Phone Unavailable Care Team Providers Care Planning Advisor Name Role Phone Cesar Zuniga MD PCP Reason for Visit * Reason Comments Labs Only Encounter Details Care Team Description Date Type Department Haydee Syed Labs Only 05/25/2019 Documentation [facility] [address] [facility] [place] [address] Social History Date Tobacco Use Types Packs/Day Years Used Never Smoker Smokeless Tobacco: Never Used Drinks/Week oz/Week Comments Alcohol Use No Alcohol Habits Answer Date Recorded How often do you have a drink containing alcohol? Never 05/18/2018 How many drinks containing alcohol do you have on No t asked a typical day when you are drinking? How often do you have six or more drinks on one Not asked occasion? Sex Assigned at Date Recorded Not on file Industry Job Start Date Occupation Not on file Not on file Not on file Travel End Travel History Travel Start No recent travel history available. documented as of this encounter Plan of Treatment Not on filedocumented as of this encounter Procedures Comments Procedure Name Priority Date/Time Associated Diag nosis TSH WITH FREE T4 REFLEX Routine 05/21/2019 Atrial fibrillation, unspecified type (HCC) CBC Routine 05/21/2019 Atrial fibrilla tion, unspecified type (HCC) MAGNESIUM Routine 05/21/2019 Atrial fibrilla tion, unspecified type (HCC) LIPID PROFILE Routine 05/21/2019 Hyperlipidemia, unspecified hyperlipidemia type COMPREHENSIVE METABOLIC Routine 05/21/2019 Atrial fibrillation, PANEL unspecified type (HCC) documented in this encounter Results * TSH WITH FREE T4 REFLEX (05/21/2019) TSH 3rd 2.56 [facility] Generation Specimen Blood - Blood Performing Organization Address [facility] Ph one Number [facility] [address] [place] [address] * COMPREHENSIVE METABOLIC PANEL (05/21/2019) Sodium 138 [facility] Potassium 3.9 [facility] Chloride 99 [facility] CO2 32 [facility] Blood Urea 13 [facility] Nitrogen Creatinine 0.8 [facility] Glucose 90 [facility] Calcium 8.6 [facility] Total Protein 5.9 (L) 6.0 - 8.0 [facility] Total Bilirubin 0.4 [facility] Albumin 3.9 [facility] Alk Phosphatase 53 [facility] AST (SGOT) 15 [facility] ALT (SGPT) 16 [facility] eGFR Non >59 [facility] eGFR >59 [facility] [place] Anion Gap [facility] Specimen Blood - Blood Narrative Performed At This result has an attachment that is n ot available. Performing Organization Address City/[facility] one Number [facility] [address] [place] [address] * CBC (05/21/2019) Pathologist [facility] White Blood 5.87 [facility] Cells RBC 4.34 [facility] Hemoglobin 14 [facility] Hematocrit 40.6 [facility] MCV 93.5 [facility] MCH 32.3 (H) 27 - 31 [facility] MCHC 34.5 [facility] Platelet Count 294 [facility] MPV [facility] RDW 13.8 [facility] Specimen Blood - Blood Performing Organization Address [facility] Ph one Number [facility] [address] [place] [address] * MAGNESIUM (05/21/2019) Magnesium 2.2 [facility] Specimen Blood - Blood Narrative Performed At This result has an attachment that is n ot available. Performing Organization Address City/[facility] one Number [facility] [address] [place] [address] * LIPID PROFILE (05/21/2019) Cholesterol 288 (H) <200 [facility] Triglycerides 61 [facility] HDL 103 (H) 30 - 90 [facility] LDL 173 (H) <100 [facility] VLDL [facility] Non HDL [facility] Cholesterol Cholesterol/HDL 2.8 [facility] Ratio Specimen Blood - Blood Performing Organization Address City/State/Zipcode Ph one Number [facility] [address] [place] [address] documented in this encounter Visit Diagnoses Diagnosis Hyperlipidemia, unspecified hyperlipide deejay type Atrial fibrillation, unspecified type ( HCC) documented in this encounter
--- OUTSIDE RECORDS SUMMARY | 2019-09-15 21:07 | XMS REPORT | Encounter Summary ---
Author Author [facility] Organization [facility] Address Unknown Phone Unavailable Care Team Providers Care Meteorological Aide Name Role Phone Cesar Zuniga MD PCP Reason for Visit * Reason Comments Labs Only INR, 2.1 Encounter Details Care Team Description Date Type Department Haydee Syed Labs Only (INR, 2.1) 03/22/2019 Documentation [facility] [address] [facility] [place] [address] Social History Date Tobacco Use Types Packs/Day [...] Procedure Name Priority Date/Time Associated Diag nosis POC INR Routine 03/22/2019 documented in this encounter Results * POC INR (03/22/2019) INR POC 2.1 OTHER OUTSIDE LAB Specimen Blood - Blood Narrative Performed At This result has an attachment that is n ot available. Performing Organization Address City/State/Zipcodc Ph one Number OTHER OUTSIDE LAB documented in this encounter Visit Diagnoses Not on filedocumented in this encounter
--- OUTSIDE RECORDS SUMMARY | 2019-09-15 21:07 | XMS REPORT | Encounter Summary ---
Author Author [facility] Organization [facility] Address Unknown Phone Unavailable Care Team Providers Care Battery Assembler Name Role Phone Cesar Zuniga MD PCP Reason for Visit * Reason Comments Labs Only INR, 2.0 Encounter Details Care Team Description Date Type Department Haydee Syed Labs Only (INR, 2.0) 05/05/2019 Documentation [facility] [address] [facility] [place] [address] Social History Date Tobacco Use Types Packs/Day [...] Procedure Name Priority Date/Time Associated Diag nosis HOME INR Routine 05/05/2019 documented in this encounter Results * HOME INR (05/05/2019) INR Home 2.0 OTHER OUTSIDE LAB Specimen Narrative Performed At This result has an attachment that is n ot available. Performing Organization Address City/State/Zipcode Ph one Number OTHER OUTSIDE LAB documented in this encounter Visit Diagnoses Not on filedocumented in this encounter
--- OUTSIDE RECORDS SUMMARY | 2019-09-15 21:07 | XMS REPORT | Encounter Summary ---
Author Author [facility] Organization [facility] Address Unknown Phone Unavailable Care Team Providers Care Software Applications Designer Name Role Phone Cesar Zuniga MD PCP Reason for Visit * Reason Comments External Communication Encounter Details Care Team Description Date Type Department Neville Santiago MD [address] [address] [phone] External Communication 03/18/2019 Documentation [facility] [address] [address] Social History Date Tobacco Use Types Packs/Day [...] history available. documented as of this encounter Progress Notes * Mia Rivera RN - 03/18/2019 5:08 PM MUFFLE WORKER RN sent email to [email or web address] with patient letter dictated by pro vider on 03/18/19. Will remain available. HIPOLITO Gardiner Patient's policy number: [id number] Email: [email or web address] [email or web address] * Neville Santiago MD - 03/18/2019 5:08 PM MUFFLE WORKER To whom it may concern, At Ms. Ibarra's request I am writing a letter regarding her history of atrial fi brillation. I have been following Ms. Hernandez "Giovanna"Fred ("flower") in the [facility] as a part of the [facility] [place] office since 12/10/2017, at which time I saw her for initial electrophysiology consultation re garding her paroxysmal atrial fibrillation. She previously had beenfollowed by her primary boiler tender, Dr. Thompsonal though he apparently had retired. She then transferred her care to [place] in 11/2017. Per records from Dr. Da Silva's group she had paroxysmal atrial fibrillation in 2 006. I have not seen any other record of prior atrial fibrillation. Ms. Ibarra is an exceptionally pleasant 73 y.o. female, who is accompanied by he r equally pleasant spouse. She worked as an [employer]er for 25 years. Her spouse practiced [employer] at one point, but most recently owned and operated a [employer]. Her PMHx briefly includes:Paroxysmal Atrial Fibrillation,Zero Cardiac Calciu m Scoring05/13/16t OSH; Echocardiogram 04/20/16t OSH; normal EF at 70%; Grade 2 Diastolic Dysfunction; Normal Size Atria; Normal PAP; Hypertension; GERD ; RAD. When I saw her for initial EP consultation, I had her wear a 30-day event monito r to evaluate for any recurrent AFIB.. She had no episodes of atrial fibrillati on detected by the monitor.. I have seen her in follow-up in 01/2018 and again in 05/2018. Since she has been in my care, at no time has she had any recurrent documented a trial fibrillation. Please do not hesitate to contact my office if I may be of further assistance. Neville Santiago M.D., [facility], [facility] Staff Furniture Repairer swim instructor Cardiology and Electrophysiology Dept. [facility]iology [facility] LE WORKER documented in this encounter Plan of Treatment Not on filedocumented as of this encounter Visit Diagnoses Not on filedocumented in this encounter
--- OUTSIDE RECORDS SUMMARY | 2019-09-15 21:07 | XMS REPORT | Encounter Summary ---
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
--- OUTSIDE RECORDS SUMMARY | 2019-09-15 21:07 | XMS REPORT | Clinical Summary ---
Author Author [facility] Organization [facility] Address Unknown Phone Unavailable Care Team Providers Care Steward/Stewardess Chief Cargo Vessel Name Role Phone Cesar Zuniga MD PCP Source Comments Some departments are not documenting in the electronic medical record. If you d o not see the information that you expected, contact Release of Information in [facility] [employer] Information Management department at [phone] for further assistan ce in locating additional records.[facility] Allergies Comments Active Allergy Reactions Severity Noted Date Codeine PALPITATIONS Low 11/21/2017 Iodinated Contrast Media PALPITATIONS Low 11/21 Epinephrine PALPITATIONS Low 11/21/2017 difficulty swallowing, wheezy [...] mg tablet mouth at bedtime daily. Active fluticasone (FLOVENT HFA) Inhale 2 0 110 mcg/actuation inhaler puffs by mouth into the lungs at bedtime daily. Active docusate (COLACE) 100 mg Take 200 mg 0 capsule by mouth daily as needed. Active pravastatin (PRAVACHOL) Take one 90 tablet 3 10 mg tablet tablet by 0 mouth at bedtime daily. Active warfarin (COUMADIN) 5 mg Take one 90 tablet 0 0 tablet tablet by 0 mouth daily. or as directed by INR Active verapamil SR (VERELAN) Take one 90 capsule 3 240 mg C24P capsule by 0 mouth daily. Active Problems Problem Noted Date Atrial fibrillation 12/10/2017 halfway (current) use of anticoagulants 12/10/2017 GERD (gastroesophageal reflux disease) 12/10/2017 Essential hypertension 12/10/2017 Encounters Care Team Description Date Type Specialty Dariana Baez RN Anticoagulation (INR 1.4) 09/10/2019 Anticoagulation Cardiology Jackie Frost RN Lab Results (received INR of 1.4. 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 Last Filed Vital Signs Reading Time Taken Comments Vital Sign 124/62 05/20/2019 11:11 AM SITE MEDICAL DIRECTOR Blood Pressure 82 05/20/2019 11:11 AM SITE MEDICAL DIRECTOR Pulse - - Temperature - - Respiratory Rate - - Oxygen Saturation - - Inhaled Oxygen Concentration 57.7 kg (127 lb 3.2 oz) 05/20/2019 11:11 AM SITE MEDICAL DIRECTOR Weight 154.9 cm (5' 1") 05/20/2019 11:11 AM SITE MEDICAL DIRECTOR Height 24.03 05/20/2019 11:11 AM SITE MEDICAL DIRECTOR Body Mass Index Plan of Treatment Health Maintenance Due Date Last Done Comments MEDICARE ANNUAL WELLNESS 1945 VISIT DTAP/TDAP VACCINES (1 - 12/23/1961 Tdap) HEPATITIS C SCREENING 12/23/1961 PHYSICAL (COMPREHENSIVE) 12/23/1961 EXAM COLORECTAL CANCER 12/23/1993 SCREENING SHINGLES RECOMBINANT 12/23/1993 VACCINE (1 of 2) OSTEOPOROSIS 12/23/2008 SCREENING/MONITORING PNEUMONIA (PPSV23) 12/23/2008 VACCINE (1 of 1 - PPSV23) INFLUENZA VACCINE 01/13/2020 Procedures Comments Procedure Name Priority Date/Time Associated Diag nosis HOME INR Routine 09/08/2019 HOME INR Routine 06/17/2019 from Last 3 Months Results * HOME INR (09/08/2019) Only the most recent of 2 results within the time period is included. INR Home 1.4 OTHER OUTSIDE LAB Specimen Narrative Performed At This result has an attachment that is n ot available. 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
--- OUTSIDE RECORDS SUMMARY | 2019-09-15 21:07 | XMS REPORT | Encounter Summary ---
Author Author [facility] Organization [facility] Address Unknown Phone Unavailable Care Team Providers Care Talent Agent Name Role Phone Cesar Zuniga MD PCP Reason for Visit * Reason Comments Anticoagulation INR 2.0 Encounter Details Care Team Description Date Type Department Mary Chavez, HIPOLITO Anticoagulation (INR 2.0 ) 06/17/2019 Anticoagulation The [facility] 4000 [facility] [place] [address] Social History Date Tobacco Use Types Packs/Day [...]
--- OUTSIDE RECORDS SUMMARY | 2019-09-15 21:07 | XMS REPORT | Encounter Summary ---
Author Author [facility] Organization [facility] Address Unknown Phone Unavailable Care Team Providers Care Pharmacy District Manager Name Role Phone Cesar Zuniga MD PCP Reason for Visit * Reason Comments Anticoagulation INR 2.0 Encounter Details Care Team Description Date Type Department Dariana Baez RN Anticoagulation (INR 2.0) 05/05/2019 Anticoagulation The [facility] 4000 [facility] [place] [address] Social History Date Tobacco Use Types Packs/Day [...] Diagnosis Atrial fibrillation, unspecified type ( HCC) custodial (current) use of anticoagulan ts Long-term (current) use of anticoagulan ts documented in this encounter
--- OUTSIDE RECORDS SUMMARY | 2019-09-15 21:07 | XMS REPORT | Encounter Summary ---
Author Author [facility] Organization [facility] Address Unknown Phone Unavailable Care Team Providers Care Tree Expert Name Role Phone Cesar Zuniga MD PCP Reason for Visit * Reason Comments Anticoagulation INR 2.1 Encounter Details Care Team Description Date Type Department Dariana Baez RN Anticoagulation (INR 2.1) 03/22/2019 Anticoagulation The [facility] 4000 [facility] [place] [address] Social History Date Tobacco Use Types Packs/Day [...] Diagnosis Atrial fibrillation, unspecified type ( HCC) skilled nursing (current) use of anticoagulan ts Long-term (current) use of anticoagulan ts documented in this encounter
--- OUTSIDE RECORDS SUMMARY | 2019-09-15 21:07 | XMS REPORT | Encounter Summary ---
Author Author [facility] Organization [facility] Address Unknown Phone Unavailable Care Team Providers Care Small Business Representative Name Role Phone Cesar Zuniga MD PCP Reason for Visit * Reason Comments Medication Refill Encounter Details Care Team Description Date Type Department EmerNeville stallings MD 4000 [facility] [place] [address] [phone] Medication Refill 04/05/[address] [facility] [address] [place] [address] Social History Date Tobacco Use Types Packs/Day [...]
--- OUTSIDE RECORDS SUMMARY | 2019-09-15 21:07 | XMS REPORT | Encounter Summary ---
Author Author [facility] Organization [facility] Address Unknown Phone Unavailable Care Team Providers Care Qc Scientist Name Role Phone Cesar Zuniga MD PCP Reason for Visit * Reason Comments Lab Results INR, 1.4 Encounter Details Care Team Description Date Type Department Haydee Syed Lab Results (INR, 1.4) 09/08/2019 Documentation The [facility] 4000 [facility] [place] [address] Social History Date Tobacco Use Types Packs/Day [...] Associated Diag nosis HOME INR Routine 09/08/2019 documented in this encounter Results * HOME INR (09/08/2019) INR Home 1.4 OTHER OUTSIDE LAB Specimen Narrative Performed At This result has an attachment that is n ot available. Performing Organization Address City/State/Zipconj Ph one Number OTHER OUTSIDE LAB documented in this encounter Visit Diagnoses Not on filedocumented in this encounter
--- OUTSIDE RECORDS SUMMARY | 2019-09-15 21:07 | XMS REPORT | Encounter Summary ---
Author Author [facility] Organization [facility] Address Unknown Phone Unavailable Care Team Providers Care Venue Manager Name Role Phone Cesar Zuniga MD PCP Reason for Visit * Reason Comments Paroxysmal Afib Annual follow up Encounter Details Care Team Description Date Type Department Neville Santiago MD [address] [place], [place] [id number] Paroxysmal Afib (Annual follow up) 05/20/2019 Office Visit [facility] [address] [place] [address] Social History Date Tobacco Use Types Packs/Day [...] history available. documented as of this encounter Last Filed Vital Signs Reading Time Taken Comments Vital Sign 124/62 05/20/2019 11:11 AM MOLD YARN SUPERVISOR Blood Pressure 82 05/20/2019 11:11 AM MOLD YARN SUPERVISOR Pulse - - Temperature - - Respiratory Rate - - Oxygen Saturation - - Inhaled Oxygen Concentration 57.7 kg (127 lb 3.2 oz) 05/20/2019 11:11 AM MOLD YARN SUPERVISOR Weight 154.9 cm (5' 1") 05/20/2019 11:11 AM MOLD YARN SUPERVISOR Height 24.03 05/20/2019 11:11 AM MOLD YARN SUPERVISOR Body Mass Index documented in this encounter Patient Instructions * Patient Instructions* John Gordon BSN - 05/20/2019 11:30 AM MOLD YARN SUPERVISOR Please get labs drawn, need to not have anything to eat for 12 hours prior to la b draw. Start Pravachol 10 mg daily, stop and call if symptoms develop Ok to hold warfarin for 4 days prior to Dental Surgery. I would like you to check your pulse daily for irregularity and/or rapidity and contact our office either occurs and persists. Also keep a log of your heart rates(HR) and note if your pulse is regular(R) or irregular(I) and bring that log with you during each office visit. If increased palpitations please call us. We would like you to follow up in 6 months In order to provide you the best care possible we ask that you follow up as britney mcintyre: For NON-URGENT questions please contact us through your [employer] account. For all medication refills please contact your pharmacy or send a request kristi Hines. For all questions that may need to be addressed urgently please call the nursing triage line at [phone] Friday - Friday 8-5 only. Please leave a detailed m essage with your name, date of , and reason for your call. To schedule an appointment call [phone]. Please allow 10-15 business days for the results of any testing to be reviewed. Please call our office if you have not heard from a nurse within this time frame . YARN SUPERVISOR documented in this encounter Progress Notes * Neville Santiago MD - 05/20/2019 11:30 AM MOLD YARN SUPERVISOR Date of Service: 05/20/2019 Mary Ibarra is a 73 y.o. female. HPI I had the pleasure of seeing your patient Mary "Queta ("fa-kasey") in [facility] as a part of the [facility] office today for follow up regarding her Paroxysmal Atrial Fibrillation. She had beenfollowed by her primary alligator shear operator, Dr. Thompson,although appa rently there were some changes that he may have retired. She was therefore referred by her primary care physician. She is close friends with Vale Rivera. Ms. Ibarra is an exceptionally pleasant 73 y.o. female, who is accompanied by he r equally pleasant spouse. 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 Her spouse practiced [employer] at one point, but most recently owned and operated a [employer]. The past medical history and data below has been reviewed and updated by me wi th new events for today's visit. Her PMHx briefly includes:Paroxysmal atrial Fibrillation,Zero Cardiac Calciu m Scoring05/13/16 OSH; Echocardiogram 04/20/16 OSH; normal EF at 70%; Grade 2 Diastolic Dysfunction; Normal Size Atria; Normal PAP; Hypertension; GERD ; RAD. To Review Detailed Updated PMHx see below the ASSESSMENT AND PLAN section of jack s note. She STATES her symptoms have not changed and have been the same for years. She s ays on occasion she feels her heart rhythm will be "all over the place" for a fe w seconds. She also feels as though her heart rhythm takes a brief pause at times. She say s she feels lightheadedness when she feels the pause. She says this occurs once every 3 months or less. She denies associated near syncope with these episodes. Has had no syncope. She says she exercises occasionally. She says she did not initiate Pravachol due to fears of side effects. She is uns ure who is managing her lipids. She denies any bleeding issues-blood in the urine, blood in the stool, toleratin g anticoagulation without obvious issue. She has been checking her INRs predominantly monthly, or more frequent if needed . She says she is having dental surgery coming up and her INR goal is a 2. She denies any chest discomfort, shortness of breath, near syncope or syncope, P ND or orthopnea. FHx, SHx and ROS documented and I have reviewed, with some pertinent features to include: No FHx of premature CAD. She is a Non-Smoker. Most pertinent ROS is included/discussed throughout the note, e.g. HPI and A/P. ASSESSMENT AND PLAN: -- Pre-OP CV Evaluation for Upcoming Tooth Extraction -- Paroxysmal Atrial Fibrillation -- Brief, Paroxysmal ATACH --Symptomatic PACs -- Anticoagulation -- Hyperlipidemia -- Zero Cardiac Calcium Scoring05/13/16 OSH -- Echocardiogram 04/20/16 OSH-Normal EF at 70%, Grade 2 Diastolic Dysfunctio n, normal size atria, normal PAP -- Hypertension -- GERD -- RAD Ms. Ibarra has not had any documented recurrent atrial fibrillation. Her sympto ms of palpitations with her heart beating very irregularly for a few seconds cer tainly could be atrial fibrillation but I think that is less likely. And that i t is much more likely that she has is having frequent atrial ectopy. She has worn event monitors in the past and has not had recurrent atrial fibrill ation at least since she has been in my care. She continues on anticoagulation and continues with the verapamil. She is alberto ating both well although she has had some issues with hemorrhoidal bleeding from the warfarin. We discussed other options for anticoagulation. She does not fe el that the warfarin is enough of an issue to make any changes. There of course also would be concerned about cost/insurance coverage. She informed us today that she is having upcoming dental surgery. She is at a low/acceptable CV risk for her upcoming surgery. Regarding anticoag ulation: I have recommended stopping her Warfarin 4 days prior to surgery and r esume it as soon as possible after surgery. We discussed the risk of stopping anticoagulation for surgery. She is at a low, but present risk to do so. She has verbalized an understanding of this risk. Regarding her hyperlipidemia her HDL is high but her LDL is also high. At a min imum I would like an LDL target less than 130. I have asked her to try Pravacho l 10 mg daily and if she has issues we will discontinue it. At that point after symptoms resolve I will initiate Crestor 5 mg daily. If she still has symptoms with that then I will consider 10 mg 3 times a week. We discussed both Pravach ol and Crestor are water-soluble and therefore usually better tolerated at least with regard to the side effect profile. Since she has not been taking her statin and has not had labs checked for a year we will check a FLP, CMP, TSH, magnesium level and will also check a CBC since she is seeing her primary care soon. I have asked her to monitor her pulse on a daily basis for any rapidity or irreg ularity. Also her blood pressures under control should continue to check it intermittentl y. PLAN: -- We will obtain labs to include FLP, CBC, CMP, TSH and Mg 2+. -- She will initiate Pravachol 10 mg/d. -- If symptoms she will stop Pravachol and call. -- She will call for increased palpitations. -- I have asked her to check her pulse once daily for irregularity and/or rapidi ty and contact our office if it occurs and persists. I have asked her to keep a log including date, once a day HR, regular or irregular--elaborating on skipped beat or AFIB. -- She will hold her Coumadin for 4 days prior to tooth extraction. Ms. Ibarra was educated regarding plan of care. She was instructed to call our o ffice with any questions or concerns, as well as to notify us of any new or wors ening symptoms. She verbalized understanding. I appreciate the opportunity to participate in the care of your patient. Please do not hesitate to contact me directly if you have any questions or furth er insights into her care. I have scheduled her follow-up with me in 6 month(s) . DETAILED UPDATED PMHx: Addendum:labs done demonstrated an INR of 2.2, normal TSH, magnesium of 2.2, p otassium of 4. Normal LFTs. Increased lipids with an LDL of 154, HDL of 99, total cholesterol 283. -- [id number],per OLD RECORDS when under Dr. Da Silva's care,she states she was diagnosed with atrial fibrillation. She has been on anticoagulation and rate control since that time. -- 12/10/17: Initial EP Consultation: ELR was issued for pts increasing symptom s suggestive of more likely premature beats but possibly episodes of AFIB or atr ial tachycardia. -- 01/21/18: Event Monitor: 22 transmissions sent. From 12/16/17 through . IMPRESSION: Abnormal ELR with approximately 5 episodes of very brief (less t schmidt 6 seconds) Atrial Tachycardia, no A. fib, intermittent PACs, symptoms often correlated with sinus rhythm or sinus rhythm with PACs. -- 02/04/18: OV (Dr. Santiago): We increased her Verapamil from 240 mg daily to 36 0 mg daily to help control her ATACH. We also initiated Zocor 10 mg daily for li pid control. Her BP at times was getting low with the increased Verapamil, there fore, we returned to 240 mg daily. -- 02/27/18: Pt stopped Zocor due to intolerance -- 05/18/18: OV (Dr. Santiago): Initiated Pravachol 10 mg/d. Vitals: 05/20/19 1111 Weight: 57.7 kg (127 lb 3.2 oz) Height: 1.549 m (5' 1") Body mass index is 24.03 kg/m. Past Medical History Patient Active Problem List Diagnosis Date Noted Atrial fibrillation (HCC) 12/10/2017 residential (current) use of anticoagulants 12/10/2017 GERD (gastroesophageal reflux disease) 12/10/2017 Essential hypertension 12/10/2017 Review of Systems Constitution: Negative. HENT: Negative. Eyes: Negative. Cardiovascular: Positive for palpitations. Respiratory: Negative. Endocrine: Negative. Hematologic/Lymphatic: Negative. Skin: Negative. Musculoskeletal: Negative. Gastrointestinal: Negative. Genitourinary: Negative. Neurological: Positive for dizziness. Psychiatric/Behavioral: Negative. Allergic/Immunologic: Negative. Physical Exam Constitutional: She is in no acute distress, resting comfortably. Skin/Integument: Warm and dry. Eyes: PERRL, sclera are non-icteric and no xanthelasmas noted. ENT: Hearing is intact, Oropharynx is clear and moist. Heme/Lym/Immun: Supple neck, without thyromegaly. Respiratory-Pulmonary/Chest: Effort normal and breath sounds normal. No respira tory distress or accessory muscle use. No obvious tracheal deviation. Clear to auscultation bilaterally. Cardiovascular: No evidence of increased jugular venous pressure, carotids are 2+/4+ equal bilaterally, without obvious bruit. Regular rhythm, S1, S2. I do n ot appreciate any significant murmur today. No heaves, thrills or rubs. Musc/Skeletal-Extremities: Without significant peripheral edema. With what appe ars to be full ROM. With mild venous varicosities. Neuro: Patient is alert and oriented to person, place, and time. Psych: Patient does not appear anxious, she appears appropriate, with normal no n-pressured speech and what appears to be appropriate judgement Cardiovascular Studies ECG today documents sinus rhythm at 82 bpm Problems Addressed Today No diagnosis found. Current Medications (including today's revisions) docusate (COLACE) 100 mg capsule Take 100 mg by mouth twice daily. famotidine(+) (PEPCID) 40 mg tablet Take 40 mg by mouth at bedtime daily. fluticasone (FLOVENT HFA) 110 mcg/actuation inhaler Inhale 2 puffs by mouth into the lungs at bedtime daily. L.acidophilus/B.bifidum,longum (HEALTHY COLON PO) Take 1 tablet by mouth rosemarie ly. levalbuterol tartrate(+) (XOPENEX HFA) 45 mcg/actuation inhaler Inhale 1 puf f by mouth into the lungs as Needed. montelukast (SINGULAIR) 10 mg tablet Take 10 mg by mouth at bedtime daily. omeprazole DR(+) (PRILOSEC) 40 mg capsule Take 40 mg by mouth daily before b reakfast. polyethylene glycol 3350 (MIRALAX) 17 g packet Take 17 g by mouth daily. potassium chloride SR (K-DUR) 20 mEq tablet Take 20 mEq by mouth daily. Take with a meal and a full glass of water. pravastatin (PRAVACHOL) 20 mg tablet Take one tablet by mouth at bedtime rosemarie ly. triamterene-hydrochlorothiazide (MAXZIDE) 37.5-25 mg tablet Take 1 tablet by mouth every morning. verapamil SR (CALAN-SR) 240 mg tablet TAKE 1 AND 1/2 TABLETS EVERY DAY vit C/vit E/lutein/min/omega-3 (OCUVITE PO) Take 1 tablet by mouth daily. warfarin (COUMADIN) 5 mg tablet Take one tablet by mouth daily. or as direct ed by INR Documentation recorded by Staci Junior, acting as scribe for Neville Borjas YARN SUPERVISOR documented in this encounter Plan of Treatment Order Schedule Name Type Priority Associated Diag noses Ordered: 05/20/2019 ECG 12-LEAD ECG Routine Atrial fibrilla tion, unspecified type (HCC) documented as of this encounter Procedures Comments Procedure Name Priority Date/Time Associated Diag nosis ECG-SCAN 05/20/2019 12:00 AM MOLD YARN SUPERVISOR documented in this encounter Results * LIPID PROFILE (05/21/2019) Cholesterol 288 (H) <200 [facility] Triglycerides 61 [facility] HDL 103 (H) 30 - 90 [facility] LDL 173 (H) <100 [facility] VLDL [facility] Non HDL [facility] Cholesterol Cholesterol/HDL 2.8 [facility] Ratio Specimen Blood - Blood Performing Organization Address [facility] Ph one Number [facility] [address] [place] [address] * TSH WITH FREE T4 REFLEX (05/21/2019) Pathologist [facility] TSH 3rd 2.56 [facility] Generation Specimen Blood - Blood Performing Organization Address [facility] Ph one Number [facility] [address] [place] [address] * MAGNESIUM (05/21/2019) [facility] Magnesium 2.2 [facility] Specimen Blood - Blood Narrative Performed At This result has an attachment that is n ot available. Performing Organization Address [facility] [place] [facility] Ph one Number [facility] [address] [place] [address] * CBC (05/21/2019) [facility] White Blood 5.87 [facility] Cells RBC 4.34 [facility] Hemoglobin 14 [facility] Hematocrit 40.6 [facility] MCV 93.5 [facility] MCH 32.3 (H) 27 - 31 [facility] MCHC 34.5 [facility] Platelet Count 294 [facility] MPV [facility] RDW 13.8 [facility] Specimen Blood - Blood Performing Organization Address [facility] [place] Ph one Number [facility] [address] [place] [address] * COMPREHENSIVE METABOLIC PANEL (05/21/2019) Pathologist [facility] Sodium 138 [facility] Potassium 3.9 [...] MAIN LAB eGFR >59 [facility] Monegasque Anion Gap [facility] Specimen Blood - Blood Narrative Performed At This result has an attachment that is n ot available. Performing Organization Address City/State/Zipcode Ph one Number MAIN LAB [address] [place] [address] * ECG-SCAN (05/20/2019 12:00 AM MOLD YARN SUPERVISOR) Narrative Performed At This result has an attachment that is n ot available. Ordered by an unspecified provider. documented in this encounter Visit Diagnoses Diagnosis Atrial fibrillation, unspecified type ( HCC) Hyperlipidemia, unspecified hyperlipide deejay type documented in this encounter
--- OUTSIDE RECORDS SUMMARY | 2019-09-15 21:07 | XMS REPORT | Encounter Summary ---
Author Author [facility] Organization [facility] Address Unknown Phone Unavailable Care Team Providers Care [place]set Stitcher Name Role Phone Cesar Zuniga MD PCP Reason for Visit * Reason Comments Lab Results received INR of 1.4. antic oagulation followed by her local apartment assistant manager Encounter Details Care Team Description Date Type Department Jackie Frost RN Lab Results (received INR of 1.4. antic oagulation followed by her local apartment assistant manager) 09/08/2019 Telephone [facility] [address] [place] [address] Social History Date Tobacco Use [...] history available. documented as of this encounter Miscellaneous Notes * Telephone Encounter - Dariana Baez RN - 09/10/2019 3:22 PM CDT Caroline Guerrero LPN P Cvm Nurse Herbert LERMA from patient on triage line returning our call. Said that she does not have local Cardiologists to manger her INR that [facility] has b een the only one managing it. She needs call back with instructions of what to take. Call her at #[phone]. I called patient back and we discussed her result. * Telephone Encounter - Gillian Fernandez RN - 09/10/2019 2:32 PM CDT I called patient and LVM for her that we received a 1.4 INR and that we had not gottten any INR's on her in several months. A result was sent to Dr Thompson of [facility]. * Telephone Encounter - Gillian Fernandez RN - 09/10/2019 2:31 PM CDT ----- Message ----- From: Caroline Guerrero LPN Sent: 09/10/2019 1:04 PM CDT To: Cvm Nurse Ep Subject: [facility]- INR 1.4 VM from patient on triage line. Said that she had INR done on Friday am and we have not called her with resul ts yet. INR posted in chart on 09-08-19 was 1.4 * Telephone Encounter - Jackie Frost RN - 09/08/2019 4:47 PM CDT attempted to call Ms Ibarra however, her phone did not accept my call her inr was received of 1.4. her local apartment assistant manager follows her anticoagulation. we have it recorded in her chart if needed does not appear she has been seen recently at documented in this encounter Plan of Treatment Not on filedocumented as of this encounter Visit Diagnoses Not on filedocumented in this encounter
--- OUTSIDE RECORDS SUMMARY | 2019-09-15 21:07 | XMS REPORT | Encounter Summary ---
Author Author [facility] Organization [facility] Address Unknown Phone Unavailable Care Team Providers Care Lead Ramp Service Man Name Role Phone Cesar Zuniga MD PCP Reason for Visit * Reason Comments Labs Only INR, 2.0 Encounter Details Care Team Description Date Type Department Haydee Syed Labs Only (INR, 2.0) 06/17/[address] [facility] [address] [place] [address] Social History Date Tobacco Use Types Packs/Day [...] Date/Time Associated Diag nosis HOME INR Routine 06/17/2019 documented in this encounter Results * HOME INR (06/17/2019) INR Home 2.0 OTHER OUTSIDE LAB Specimen Narrative Performed At This result has an attachment that is n ot available. Performing Organization Address City/State/Zipcode Ph one Number OTHER OUTSIDE LAB documented in this encounter Visit Diagnoses Not on filedocumented in this encounter
--- OUTSIDE RECORDS SUMMARY | 2019-09-15 21:09 | XMS REPORT | Continuity of Care Document ---
Author Organization Unknown Address Unknown Phone Unavailable Allergies Active Description Code Type Severity Reaction Onset Reported/Identified Relationship to Patient Clinical Status Yes NO KNOWN DRUG ALLERGIES NO KNOWN DRUG ALLERG UNKNOWN Yes No Known Drug Allergies [id number] Drug Allergy Unknown N/A 10/22/2015 Yes CONTRAST DYE CONTRAST DYE Dr ug Allergy Moderate HEART RACING 05/13/2016 Yes epinephrine epinephrine Drug Allergy Moderate HEART RACING 05/13/2016 Yes No Known Allergies No Known Allergies Drug Allergy Unknown N/A 05/13/2016 Medications There is no data. Problems Date Dx Coded Attending Type Code Diagnosis Diagnosed By 12/03/2009 Ot V58.61 12/03/2009 Ot V58.83 03/11/2010 Ot V58.61 03/11/2010 Ot V58.83 07/15/2010 Ot V58.61 ANTICOAGULANTS,LT,CURRENT USE 07/15/2010 Ot V58.83 ENC OUNTER FOR THERAPEUTIC DRUG MONITORIN 10/15/2010 Ot V58.61 ANTICOAGULANTS,LT,CURRENT USE 10/15/2010 Ot V58.83 ENC OUNTER FOR THERAPEUTIC DRUG MONITORIN 01/20/2011 Ot V58.61 ANTICOAGULANTS,LT,CURRENT USE 01/20/2011 Ot V58.83 ENC OUNTER FOR THERAPEUTIC DRUG MONITORIN 05/21/2011 Ot V58.61 ANTICOAGULANTS,LT,CURRENT USE 05/21/2011 Ot V58.83 ENC OUNTER FOR THERAPEUTIC DRUG MONITORIN 09/01/2011 Ot V58.61 ANTICOAGULANTS,LT,CURRENT USE 09/01/2011 Ot V58.83 ENC OUNTER FOR THERAPEUTIC DRUG MONITORIN 12/30/2011 Ot V58.61 ANTICOAGULANTS,LT,CURRENT USE 12/30/2011 Ot V58.83 ENC OUNTER FOR THERAPEUTIC DRUG MONITORIN 05/21/2012 Ot V58.61 ANTICOAGULANTS,LT,CURRENT USE 05/21/2012 Ot V58.83 ENC OUNTER FOR THERAPEUTIC DRUG MONITORIN 08/23/2012 NANDINI OSORIO, LIZ Cornejo Ot V58.61 ANTICOAGULANTS,LT,CURRENT USE 08/23/2012 NANDINI OSORIO, LIZ P Ot V58.83 ENCOUNTER FOR THERAPEUTIC DRUG MONITORIN 12/25/2012 NANDINI OSORIO, LIZ P Ot V58.61 ANTICOAGULANTS,LT,CURRENT USE 12/25/2012 NANDINI OSORIO, LIZ P Ot V58.83 ENCOUNTER FOR THERAPEUTIC DRUG MONITORIN 04/13/2013 NANDINI OSORIO, LIZ P Ot V58.61 ANTICOAGULANTS,LT,CURRENT USE 04/13/2013 NANDINI OSORIO, LIZ P Ot V58.83 ENCOUNTER FOR THERAPEUTIC DRUG MONITORIN 09/08/2013 NANDINI OSORIO, LZI P Ot V58.61 ANTICOAGULANTS,LT,CURRENT USE 09/08/2013 NANDINI [...] V58.83 01/10/2015 NANDINI OSORIO, LIZ P Ot Z51.81 01/10/2015 NANDINI OSORIO, LIZ P Ot Z79.01 01/10/2015 LIZ DELATORRE MD P Ot V58.61 01/10/2015 NANDINI OSORIO, LIZ P Ot V58.83 01/11/2015 LIZ DELATORRE MD Ot V58.61 ANTICOAGULANTS,LT,CURRENT USE 01/11/2015 NANDINI OSORIO, LIZ P Ot V58.83 ENCOUNTER FOR THERAPEUTIC DRUG MONITORIN 02/20/2015 Ot V76.12 02/20/2015 Ot V76.12 02/20/2015 Ot V76.12 02/20/2015 IVÁN OSORIO, ALBINA Jo Ot 789.04 02/20/2015 ALBINA MINOR MD Ot 793.82 02/20/2015 ALIBNA MINOR MD Ot V76.12 02/20/2015 DOROTHY JAIN MD Ot V76.12 02/20/2015 LIZ DELATORRE MD Ot V58.61 02/20/2015 LIZ DELATORRE MD P Ot V58.83 02/21/2015 NANDINI OSORIO, LIZ P Ot Z51.81 02/21/2015 LIZ DELATORRE MD P Ot Z79.01 04/06/2015 NANDINI OSORIO, LIZ P Ot Z51.81 04/06/2015 LIZ DELATORRE MD Ot Z79.01 05/21/2015 LIZ DELATORRE MD Ot Z51.81 ENCOUNTER FOR THERAPEUTIC DRUG LEVEL MON 05/21/2015 LIZ DELATORRE MD Ot Z79.01 CUSTODIAL (CURRENT) USE OF ANTICOAGULANT 06/12/2015 LIZ DELATORRE MD Ot Z51.81 06/12/2015 LIZ DELATORRE MD Ot Z79.01 06/13/2015 LIZ DELATORRE MD Ot Z51.81 06/13/2015 LIZ DELATORRE MD P Ot Z79.01 08/02/2015 LIZ DELATORRE MD P Ot Z51.81 ENCOUNTER FOR THERAPEUTIC DRUG LEVEL MON 08/02/2015 LIZ DELATORRE MD Ot Z79.01 MALT HOUSE LOADER (CURRENT) USE OF ANTICOAGULANT 09/10/2015 LIZ DELATORRE MD P Ot Z51.81 ENCOUNTER FOR THERAPEUTIC DRUG LEVEL MON 09/10/2015 LIZ DELATORRE MD P Ot Z79.01 CUSTODIAL (CURRENT) USE OF ANTICOAGULANT 09/12/2015 LIZ DELATORRE MD P Ot Z51.81 ENCOUNTER FOR THERAPEUTIC DRUG LEVEL MON 09/12/2015 LIZ DELATORRE MD P Ot Z79.01 MALT HOUSE LOADER (CURRENT) USE OF ANTICOAGULANT 10/05/2015 Ot V76.12 OTH SCREEN MAMMO- MALIGN NEOPLASM OF TRAVIS 10/05/2015 Ot V76.12 OTH SCREEN MAMMO- MALIGN NEOPLASM OF TRAVIS 10/05/2015 IVÁN OSORIO, ALBINA [...] 10/05/2015 LIZ DELATORRE MD P Ot Z79.01 CUSTODIAL (CURRENT) USE OF ANTICOAGULANT 10/05/2015 LIZ DELTAORRE MD P Ot Z51.81 ENCOUNTER FOR THERAPEUTIC DRUG LEVEL MON 10/05/2015 LIZ DELATORRE MD P Ot Z79.01 MALT HOUSE LOADER (CURRENT) USE OF ANTICOAGULANT 10/05/2015 LIZ DELATORRE MD Ot Z51.81 ENCOUNTER FOR THERAPEUTIC DRUG LEVEL MON 10/05/2015 LIZ DELATORRE MD Ot Z79.01 MALT HOUSE LOADER (CURRENT) USE OF ANTICOAGULANT 10/06/2015 DOROHTY JAIN MD, Ot Z12.31 ENCNTR SCREEN MAMMOGRAM FOR MALIGNANT NE 10/11/2015 DOROTHY JAIN MD Ot Z12.31 ENCNTR SCREEN MAMMOGRAM FOR MALIGNANT NE 10/22/2015 MACHO DO, ARSLAN K Ot I48.2 CHRONIC ATRIAL FIBRILLATION 10/22/2015 MACHO DO, ARSLAN K Ot R04.0 EPISTAXIS 10/22/2015 MACHO DO, ARSLAN K Ot Z79.01 CUSTODIAL (CURRENT) USE OF ANTICOAGULANT 10/22/2015 Ot V76.12 OTH SCREEN MAMMO- MALIGN NEOPLASM OF TRAVIS 10/22/2015 Ot V76.12 OTH SCREEN MAMMO- MALIGN NEOPLASM OF TRAVIS 10/22/2015 IVÁN OSORIO, ALBINA [...] MON 10/22/2015 LIZ DELATORRE MD Ot Z79.01 CUSTODIAL (CURRENT) USE OF ANTICOAGULANT 10/22/2015 DOROTHY JAIN MD Ot Z12.31 ENCNTR SCREEN MAMMOGRAM FOR MALIGNANT NE 10/24/2015 MACHO DO, ARSLAN K Ot I48.2 CHRONIC ATRIAL FIBRILLATION 10/24/2015 MACHO DO, ARSLAN K Ot R04.0 EPISTAXIS 10/24/2015 MACHO DO, ARSLAN K Ot Z79.01 MALT HOUSE LOADER (CURRENT) USE OF ANTICOAGULANT 10/25/2015 DOROTHY JAIN MD Ot Z12.31 ENCNTR SCREEN MAMMOGRAM FOR MALIGNANT NE 11/24/2015 LIZ DELATORRE MD Ot Z51.81 ENCOUNTER FOR THERAPEUTIC DRUG LEVEL MON 11/24/2015 GALICHIA MD, LIZ P Ot Z79.01 CUSTODIAL (CURRENT) USE OF ANTICOAGULANT 12/14/2015 NANDINI OSORIO LIZ P Ot Z51.81 ENCOUNTER FOR THERAPEUTIC DRUG LEVEL MON 12/14/2015 LIZ DELATORRE MD P Ot Z79.01 MALT HOUSE LOADER (CURRENT) USE OF ANTICOAGULANT 01/03/2016 LIZ DELATORRE MD P Ot Z51.81 ENCOUNTER FOR THERAPEUTIC DRUG LEVEL MON 01/03/2016 LIZ DELATORRE MD P Ot Z79.01 MALT HOUSE LOADER (CURRENT) USE OF ANTICOAGULANT 01/04/2016 LIZ DELATORRE MD P Ot Z51.81 ENCOUNTER FOR THERAPEUTIC DRUG LEVEL MON 01/04/2016 LIZ DELATORRE MD P Ot Z79.01 MALT HOUSE LOADER (CURRENT) USE OF ANTICOAGULANT 01/10/2016 LIZ DELATORRE MD P Ot Z51.81 ENCOUNTER FOR THERAPEUTIC DRUG LEVEL MON 01/10/2016 LIZ DELATORRE MD P Ot Z79.01 CUSTODIAL (CURRENT) USE OF ANTICOAGULANT 01/10/2016 LIZ DELATORRE MD P Ot Z51.81 ENCOUNTER FOR THERAPEUTIC DRUG LEVEL MON 01/10/2016 LIZ DELATORRE MD P Ot Z79.01 CUSTODIAL (CURRENT) USE OF ANTICOAGULANT 01/22/2016 LIZ DELATORRE MD P Ot Z51.81 ENCOUNTER FOR THERAPEUTIC DRUG LEVEL MON 01/22/2016 NANDINI OSORIO LIZ P Ot Z79.01 MALT HOUSE LOADER (CURRENT) USE OF ANTICOAGULANT 02/08/2016 LIZ DELATORRE MD P Ot Z51.81 ENCOUNTER FOR THERAPEUTIC DRUG LEVEL MON 02/08/2016 NANDINI OSORIO LIZ P Ot Z79.01 MALT HOUSE LOADER (CURRENT) USE OF ANTICOAGULANT 02/08/2016 CLARITA MERCEDES CONCHE OPERATOR Ot E78.2 MIXED HYPERLIPIDEMIA 02/08/2016 CLARITA MERCEDES CONCHE OPERATOR Ot G47.62 SLEEP RELATED LEG CRAMPS 02/08/2016 CLARITA MERCEDES CONCHE OPERATOR Ot I48.0 PAROXYSMAL ATRIAL FIBRILLATION 02/08/2016 CLARITA MERCEDES CONCHE OPERATOR Ot R09.81 NASAL CONGESTION 02/08/2016 CLARITA MERCEDES CONCHE OPERATOR Ot Z00.00 ENCNTR FOR GENERAL ADULT MEDICAL EXAM 03/01/2016 CLARITA MERCEDES CONCHE OPERATOR Ot E78.2 MIXED HYPERLIPIDEMIA 03/01/2016 CLARIAT MERCEDES CONCHE OPERATOR Ot G47.62 SLEEP RELATED LEG CRAMPS 03/01/2016 MERCEDES, CLARITA M CONCHE OPERATOR Ot I48.0 PAROXYSMAL ATRIAL FIBRILLATION 03/01/2016 CLARITA MERCEDES CONCHE OPERATOR Ot R09.81 NASAL CONGESTION 03/01/2016 CLARITA MERCEDES CONCHE OPERATOR Ot Z00.00 ENCNTR FOR GENERAL ADULT MEDICAL EXAM W/ 03/22/2016 BHARGAV PICKENS MD Ot R06.0 0 DYSPNEA, UNSPECIFIED 04/04/2016 BHARGAV PICKENS MD Ot R06.0 0 DYSPNEA, UNSPECIFIED 04/06/2016 Stacy Gustafson 427.31 ATRIAL FIBRILLATION 04/06/2016 Stacy Gustafson 530.81 ESOPHAGEAL REFLUX 04/06/2016 Stacy Gustafson 786.59 OTHER CHEST PAIN 04/06/2016 Stacy Gustafson I48.91 UNSPECIFIED ATRIAL FIBRILLATION 04/06/2016 Stacy Gustafson K21.9 GASTRO- ESOPHAGEAL REFLUX DISEASE WITHOUT ESOPHAGITIS 04/06/2016 Stacy Gustafson R07.89 OTHER CHEST PAIN 04/08/2016 LIZ DELATORRE MD Ot Z51.81 ENCOUNTER FOR THERAPEUTIC DRUG LEVEL MON 04/08/2016 LIZ DELATORRE MD Ot Z79.01 MALT HOUSE LOADER (CURRENT) USE OF ANTICOAGULANT 04/09/2016 LIZ DELATORRE MD Ot Z51.81 ENCOUNTER FOR THERAPEUTIC DRUG LEVEL MON 04/09/2016 LIZ DELATORRE MD Ot Z79.01 MALT HOUSE LOADER (CURRENT) USE OF ANTICOAGULANT 04/12/2016 BHARGAV PICKENS MD Ot R06.0 0 DYSPNEA, UNSPECIFIED 05/01/2016 BHARGAV PICKENS MD Ot R06.0 0 DYSPNEA, UNSPECIFIED 05/03/2016 NORBERTO MURRIETA PA-C Ot I48.91 UNSPECIFIED ATRIAL FIBRILLATION 05/22/2016 LIZ DELATORRE MD Ot Z51.81 ENCOUNTER FOR THERAPEUTIC DRUG LEVEL MON 05/22/2016 LIZ DELATORRE MD Ot Z79.01 MALT HOUSE LOADER (CURRENT) USE OF ANTICOAGULANT 05/22/2016 LIZ DELATORRE MD Ot Z51.81 ENCOUNTER FOR THERAPEUTIC DRUG LEVEL MON 05/22/2016 LIZ DELATORRE MD Ot Z79.01 MALT HOUSE LOADER (CURRENT) USE OF ANTICOAGULANT 05/23/2016 NORBERTO MURRIETA PA-C Ot I48.91 UNSPECIFIED ATRIAL FIBRILLATION 06/17/2016 LIZ DELATORRE MD Ot Z51.81 ENCOUNTER FOR THERAPEUTIC DRUG LEVEL MON 06/17/2016 LIZ DELATORRE MD Ot Z79.01 MALT HOUSE LOADER (CURRENT) USE OF ANTICOAGULANT 07/11/2016 LIZ DELATORRE MD Ot Z79.01 MALT HOUSE LOADER (CURRENT) USE OF ANTICOAGULANT 07/11/2016 LIZ DELATORRE MD Ot Z86.73 PRSNL HX OF TIA (TIA), AND CEREB INFRC W 08/20/2016 LIZ DELATORRE MD Ot Z79.01 MALT HOUSE LOADER (CURRENT) USE OF ANTICOAGULANT 08/20/2016 LIZ DELATORRE MD Ot Z86.73 PRSNL HX OF TIA (TIA), AND CEREB INFRC W 10/09/2016 LAUREN HOOK PRESCRIPTION CLERK LENSES Ot Z12.31 ENCNTR SCREEN MAMMOGRAM FOR MALIGNANT NE 10/09/2016 LAUREN HOOK APRN Ot Z12.31 ENCNTR SCREEN MAMMOGRAM FOR MALIGNANT NE 11/01/2016 LAUREN HOOK APRN Ot Z12.31 ENCNTR SCREEN MAMMOGRAM FOR MALIGNANT NE 07/17/2017 CELIO OSORIO, BHARGAV Garcia Ot R05 COUGH 07/17/2017 BHARGAV PICKENS MD Ot R05 COUGH 08/06/2017 BHARGAV PICKENS MD Ot R05 COUGH 09/03/2017 STACY GUSTAFSON APRN Ot I48.91 UNSPECIFIED ATRIAL FIBRILLATION 09/03/2017 STACY GUSTAFSON APRN Ot R40.2142 COMA SCALE, EYES OPEN, SPONTANEOUS, EMR 09/03/2017 STACY GUSTAFSON APRN Ot R40.2252 COMA SCALE, BEST VERBAL RESPONSE, ORIENT 09/03/2017 STACY GUSTAFSON APRN Ot R40.2362 COMA SCALE, BEST MOTOR RESPONSE, OBEYS C 09/03/2017 STACY GUSTAFSON APRN Ot S09.90XA UNSPECIFIED INJURY OF HEAD, INITIAL ENCO 09/03/2017 STACY GUSTAFSON APRN Ot W01.198A FALL SAME LEV FROM SLIP/TRIP W STRIKE AG 09/03/2017 STACY GUSTAFSON APRN Ot Z79.01 MALT HOUSE LOADER (CURRENT) USE OF ANTICOAGULANT 09/03/2017 STACY GUSTAFSON APRN Ot Z90.710 ACQUIRED ABSENCE OF BOTH CERVIX AND UTER 09/09/2017 STACY GUSTAFSON APRN Ot I48.91 UNSPECIFIED ATRIAL FIBRILLATION 09/09/2017 STACY GUSTAFSON APRN Ot R40.2142 COMA SCALE, EYES OPEN, SPONTANEOUS, EMR 09/09/2017 STACY GUSTAFSON PRESCRIPTION CLERK LENSES Ot R40.2252 COMA SCALE, BEST VERBAL RESPONSE, ORIENT 09/09/2017 STACY GUSTAFSON PRESCRIPTION CLERK LENSES Ot R40.2362 COMA SCALE, BEST MOTOR RESPONSE, OBEYS C 09/09/2017 STACY GUSTAFSON PRESCRIPTION CLERK LENSES Ot S09.90XA UNSPECIFIED INJURY OF HEAD, INITIAL ENCO 09/09/2017 STACY GUSTAFSON PRESCRIPTION CLERK LENSES Ot W01.198A FALL SAME LEV FROM SLIP/TRIP W STRIKE AG 09/09/2017 STACY GUSTAFSON PRESCRIPTION CLERK LENSES Ot Z79.01 CUSTODIAL (CURRENT) USE OF ANTICOAGULANT 09/09/2017 STACY GUSTAFSON PRESCRIPTION CLERK LENSES Ot Z90.710 ACQUIRED ABSENCE OF BOTH CERVIX AND UTER 10/14/2017 LAUREN HOOK APRN Ot Z12.31 ENCNTR SCREEN MAMMOGRAM FOR MALIGNANT NE 11/28/2017 Ot V76.12 OTH SCREEN MAMMO- MALIGN NEOPLASM OF TRAVIS 11/28/2017 IVÁN OSORIO, ALBINA Jo Ot 789.04 ABDOMINAL PAIN, LEFT LOWER QUADRANT 11/28/2017 ALBINA MINOR MD Ot 793.82 INCONCLUSIVE MAMMOGRAM 11/28/2017 ALBINA MINOR MD Ot V76.12 OTH SCREEN MAMMO-MALIGN NEOPLASM OF TRAVIS 11/28/2017 CRISTOBAL OSORIO, DOROTHY Zhao Ot V76.12 OTH SCREEN MAMMO-MALIGN NEOPLASM OF TRAVIS 11/28/2017 DOROTHY JAIN MD Ot Z12.31 ENCNTR SCREEN MAMMOGRAM FOR MALIGNANT NE 11/28/2017 CLARTIA MERCEDES CONCHE OPERATOR Ot E78.2 MIXED HYPERLIPIDEMIA 11/28/2017 CLARITA MERCEDES CONCHE OPERATOR Ot G47.62 SLEEP RELATED LEG CRAMPS 11/28/2017 CLARITA MERCEDES CONCHE OPERATOR Ot I48.0 PAROXYSMAL ATRIAL FIBRILLATION 11/28/2017 CLARITA MERCEDES CONCHE OPERATOR Ot R09.81 NASAL CONGESTION 11/28/2017 CLARITA MERCEDES CONCHE OPERATOR Ot Z00.00 ENCNTR FOR GENERAL ADULT MEDICAL EXAM W/ 11/28/2017 CELIO OSORIO, BHARGAV Garcia Ot R06.0 0 DYSPNEA, UNSPECIFIED 11/28/2017 BHARGAV PICKENS MD Ot R06.0 0 DYSPNEA, UNSPECIFIED 11/28/2017 NORBERTO MURRIETA PA-C Ot I48.91 UNSPECIFIED ATRIAL FIBRILLATION 11/28/2017 LAUREN HOOK PRESCRIPTION CLERK LENSES Ot Z12.31 ENCNTR SCREEN MAMMOGRAM FOR MALIGNANT NE 11/28/2017 BHARGAV PICKENS MD Ot R05 COUGH 11/28/2017 LAUREN HOOK APRN Ot Z12.31 ENCNTR SCREEN MAMMOGRAM FOR MALIGNANT NE 12/01/2017 LAUREN HOOK PRESCRIPTION CLERK LENSES Ot Z12.31 ENCNTR SCREEN MAMMOGRAM FOR MALIGNANT NE 01/01/2018 LAUREN HOOK PRESCRIPTION CLERK LENSES Ot Z12.31 ENCNTR SCREEN MAMMOGRAM FOR MALIGNANT NE 04/23/2018 BHARGAV PICKENS MD Ot J44.9 CHRONIC OBSTRUCTIVE PULMONARY DISEASE, U 04/27/2018 STACY GUSTAFSON APRN Ot I48.91 UNSPECIFIED ATRIAL FIBRILLATION 04/27/2018 STACY GUSTAFSON APRN Ot S60.512A ABRASION OF LEFT HAND, INITIAL ENCOUNTER 04/27/2018 STACY GUSTAFSON APRN Ot Z23 ENCOUNTER FOR IMMUNIZATION 04/27/2018 STACY GUSTAFSON APRN Ot Z90.710 ACQUIRED ABSENCE OF BOTH CERVIX AND UTER 04/29/2018 STACY GUSTAFSON APRN Ot I48.91 UNSPECIFIED ATRIAL FIBRILLATION 04/29/2018 STACY GUSTAFSON APRN Ot S60.512A ABRASION OF LEFT HAND, INITIAL ENCOUNTER 04/29/2018 STACY GUSTAFSON APRN Ot Z23 ENCOUNTER FOR IMMUNIZATION 04/29/2018 STACY GUSTAFSON APRN Ot Z90.710 ACQUIRED ABSENCE OF BOTH CERVIX AND UTER 05/11/2018 BHARGAV PICKENS MD Ot J44.9 CHRONIC OBSTRUCTIVE PULMONARY DISEASE, U 06/29/2018 KIRAN DOBSON MD Ot E87. 1 HYPO-OSMOLALITY AND HYPONATREMIA 06/29/2018 KIRAN DOBSON MD Ot E87. 6 HYPOKALEMIA 06/29/2018 KIRAN DOBSON MD Ot F41. 0 PANIC DISORDER [EPISODIC PAROXYSMAL ANXI 06/29/2018 KIRAN DOBSON MD Ot I48. 91 UNSPECIFIED ATRIAL FIBRILLATION 06/29/2018 KIRAN DOBSON MD Ot N39. 0 URINARY TRACT INFECTION, SITE NOT SPECIF 06/29/2018 KIRAN DOBSON MD Ot Z87. 19 PERSONAL HISTORY OF OTHER DISEASES OF TH 06/29/2018 KIRAN DOBSON MD Ot Z90.710 ACQUIRED ABSENCE OF BOTH CERVIX AND UTER 07/01/2018 KIRAN DOBSON MD Ot E87. 1 HYPO-OSMOLALITY AND HYPONATREMIA 07/01/2018 KIRAN DOBSON MD Ot E87. 6 HYPOKALEMIA 07/01/2018 KIRAN DOBSON MD Ot F41. 0 PANIC DISORDER [EPISODIC PAROXYSMAL ANXI 07/01/2018 KIRAN DOBSON MD Ot I48. 91 UNSPECIFIED ATRIAL FIBRILLATION 07/01/2018 KIRAN DOBSON MD Ot N39. 0 URINARY TRACT INFECTION, SITE NOT SPECIF 07/01/2018 KIRAN DOBSON MD Ot Z87. 19 PERSONAL HISTORY OF OTHER DISEASES OF TH 07/01/2018 KIRAN DOBSON MD Ot Z90.710 ACQUIRED ABSENCE OF BOTH CERVIX AND UTER 2018 ARTEM BONILLA Ot Z12.31 ENCNTR SCREEN MAMMOGRAM FOR MALIGNANT NE Procedures There is no data. Results Test Result Range PT panel in platelet poor plasma by coag ulation assay - 11/17/15 12:21 Prothrombin time (PT) in platelet poor plasma by coagu lation assay 23.3 s 12.2-14.7 INR in platelet poor plasma or blood by coagulation as say 2.1 0.8-1.4 PT panel in platelet poor plasma by coag ulation assay - 01/09/16 14:00 Prothrombin time (PT) in platelet poor plasma by coagu lation assay 27.1 s 12.2-14.7 INR in platelet poor plasma or blood by coagulation as say 2.5 0.8-1.4 Complete blood count (CBC) with automate d white blood cell (WBC) differential - 02/08/16 08:46 Blood leukocytes automated count (number/volume) 4.7 10*3/uL 4.3-11.0 Blood erythrocytes automated count (number/volume) 4.47 10*6/uL 4.35-5.85 Venous blood hemoglobin measurement (mass/volume) 14.3 g/dL 11.5-16.0 Blood hematocrit (volume fraction) 42 % 35-52 Automated erythrocyte mean corpuscular volume 95 [ foz_us] 80-99 Automated erythrocyte mean corpuscular h emoglobin (mass per erythrocyte) 32 pg 25-34 Automated erythrocyte mean corpuscular h emoglobin concentration measurement (mass/volume) 34 g/dL 32-36 Automated erythrocyte distribution width ratio 13. 6 % 10.0- 14.5 Automated blood platelet count (count/volume) 278 10*3/uL 130-400 Automated blood platelet mean volume measurement 10.4 [foz_us] 7.4-10.4 Automated blood neutrophils/100 leukocytes 51 % 42-75 Automated blood lymphocytes/100 leukocytes 31 % 12-44 Blood monocytes/100 leukocytes 15 % 0-12 Automated blood eosinophils/100 leukocytes 2 % 0-10 Automated blood basophils/100 leukocytes 1 % 0-10 Blood neutrophils automated count (number/volume) 2.4 10*3 1.8-7.8 Blood lymphocytes automated count (number/volume) 1.5 10*3 1.0-4.0 Blood monocytes automated count (number/volume) 0. 7 10*3 0.0-1.0 Automated eosinophil count 0.1 10*3/uL 0 .0-0.3 Automated blood basophil count (count/volume) 0.0 10*3/uL 0.0-0.1 Comprehensive metabolic panel - 02/08/16 08:46 Serum or plasma sodium measurement (moles/volume) 139 mmol/L 135-145 Serum or plasma potassium measurement (moles/volume) 3.9 mmol/L 3.6-5.0 Serum or plasma chloride measurement (moles/volume) 105 mmol/L 98-107 Carbon dioxide 29 mmol/L 21-32 Serum or plasma anion gap determination (moles/volume) 5 mmol/L 5-14 Serum or plasma urea nitrogen measurement (mass/volume ) 11 mg/dL 7-18 Serum or plasma creatinine measurement (mass/volume) 0.80 mg/dL 0.60-1.30 Serum or plasma urea nitrogen/creatinine mass ratio 14 NRG Serum or plasma creatinine measurement w ith calculation of estimated glomerular filtration rate > NRG Serum or plasma glucose measurement (mass/volume) 102 mg/dL 70-105 Serum or plasma calcium measurement (mass/volume) 8.2 mg/dL 8.5-10.1 Serum or plasma total bilirubin measurement (mass/volu me) 0.5 mg/dL 0.1-1.0 Serum or plasma alkaline phosphatase garth surement (enzymatic activity/volume) 61 U/L 40-136 Serum or plasma aspartate aminotransfera se measurement (enzymatic activity/volume) 15 U/L 5-34 Serum or plasma alanine aminotransferase measurement (enzymatic activity/volume) 22 U/L 0-55 Serum or plasma protein measurement (mass/volume) 5.8 g/dL 6.4-8.2 Serum or plasma albumin measurement (mass/volume) 3.9 g/dL 3.2-4.5 Magnesium - 02/08/16 08:46 Magnesium 2.2 mg/dL 1.8-2.4 Lipid 1996 panel - 02/08/16 08:46 Serum or plasma triglyceride measurement (mass/volume) 99 mg/dL <150 Serum or plasma cholesterol measurement (mass/volume) 271 mg/dL < 200 Serum or plasma cholesterol in HDL measurement (mass/v olume) 78 mg/dL 40-60 Cholesterol in LDL [mass/volume] in serum or plasma by direct assay 172 mg/dL 1-129 Serum or plasma cholesterol in VLDL measurement (mass/ volume) 20 mg/dL 5-40 THYROID STIMULATING HORMONE - 02/08/16 0 8:46 THYROID STIMULATING HORMONE 3.03 u[iU]/mL 0.35-4.94 PT panel in platelet poor plasma by coag ulation assay - 02/08/16 09:02 Prothrombin time (PT) in platelet poor plasma by coagu lation assay 24.7 s 12.2-14.7 INR in platelet poor plasma or blood by coagulation as say 2.3 0.8-1.4 PT panel in platelet poor plasma by coag ulation assay - 03/18/16 11:31 Prothrombin time (PT) in platelet poor plasma by coagu lation assay 27.6 s 12.2-14.7 INR in platelet poor plasma or blood by coagulation as say 2.6 0.8-1.4 Comprehensive Metabolic Panel - 04/06/16 10:08 Albumin 4.0 g/dL 3.6-5.1 ALP 63 U/L 35-130 ALT 15 U/L 6-45 Anion Gap 16 6-14 AST 17 U/L 2-40 BUN 10 mg/dL 5-25 Calcium 8.7 mg/dL 8.3-10.4 Chloride 98 mmol/L 95-114 CO2 27 mEq/L 22-33 Creat 0.83 mg/dL 0.50-1.50 eGFR 68 mL/min/1.73m2 >59 Globulin 2.5 g/dL 2.3-3.5 Glucose 104 mg/dL 70-110 Osmo 285 280-295 Potassium 3.2 mmol/L 3.5-5.3 Sodium 138 mmol/L 134-148 TBil 0.6 mg/dL 0.2-1.2 TP 6.5 g/dL 6.0-8.3 PT panel in platelet poor plasma by coag ulation assay - 05/02/16 12:43 Prothrombin time (PT) in platelet poor plasma by coagu lation assay 25.7 s 12.2-14.7 INR in platelet poor plasma or blood by coagulation as say 2.4 0.8-1.4 HELICOBACTER UREASE SCREEN - 05/13/16 11 :55 Microbiology PT panel in platelet poor plasma by coag ulation assay - 05/22/16 11:25 Prothrombin time (PT) in platelet poor plasma by coagu lation assay 22.9 s 12.2-14.7 INR in platelet poor plasma or blood by coagulation as say 2.1 0.8-1.4 PT panel in platelet poor plasma by coag ulation assay - 06/13/16 10:20 Prothrombin time (PT) in platelet poor plasma by coagu lation assay 29.7 s 12.2-14.7 INR in platelet poor plasma or blood by coagulation as say 2.8 0.8-1.4 PT panel in platelet poor plasma by coag ulation assay - 07/18/16 09:57 Prothrombin time (PT) in platelet poor plasma by coagu lation assay 25.3 s 12.2-14.7 INR in platelet poor plasma or blood by coagulation as say 2.3 0.8-1.4 PT panel in platelet poor plasma by coag ulation assay - 08/13/16 10:17 Prothrombin time (PT) in platelet poor plasma by coagu lation assay 30.9 s 12.2-14.7 INR in platelet poor plasma or blood by coagulation as say 3.0 0.8-1.4 PT panel in platelet poor plasma by coag ulation assay - 09/03/17 11:34 Prothrombin time (PT) in platelet poor plasma by coagu lation assay 25.2 s 12.2-14.7 INR in platelet poor plasma or blood by coagulation as say 2.3 0.8-1.4 Complete blood count (CBC) with automate d white blood cell (WBC) differential - 06/29/18 02:49 Blood leukocytes automated count (number/volume) 6.8 10*3/uL 4.3-11.0 Blood erythrocytes automated count (number/volume) 4.47 10*6/uL 4.35-5.85 Venous blood hemoglobin measurement (mass/volume) 14.4 g/dL 11.5-16.0 Blood hematocrit (volume fraction) 40 % 35-52 Automated erythrocyte mean corpuscular volume 89 [ foz_us] 80-99 Automated erythrocyte mean corpuscular h emoglobin (mass per erythrocyte) 32 pg 25-34 Automated erythrocyte mean corpuscular h emoglobin concentration measurement (mass/volume) 36 g/dL 32-36 Automated erythrocyte distribution width ratio 13. 0 % 10.0- 14.5 Automated blood platelet count (count/volume) 322 10*3/uL 130-400 Automated blood platelet mean volume measurement 10.4 [foz_us] 7.4-10.4 Automated blood neutrophils/100 leukocytes 45 % 42-75 Automated blood lymphocytes/100 leukocytes 38 % 12-44 Blood monocytes/100 leukocytes 15 % 0-12 Automated blood eosinophils/100 leukocytes 2 % 0-10 Automated blood basophils/100 leukocytes 0 % 0-10 Blood neutrophils automated count (number/volume) 3.0 10*3 1.8-7.8 Blood lymphocytes automated count (number/volume) 2.6 10*3 1.0-4.0 Blood monocytes automated count (number/volume) 1. 0 10*3 0.0-1.0 Automated eosinophil count 0.1 10*3/uL 0 .0-0.3 Automated blood basophil count (count/volume) 0.0 10*3/uL 0.0-0.1 PT panel in platelet poor plasma by coag ulation assay - 06/29/18 02:49 Prothrombin time (PT) in platelet poor plasma by coagu lation assay 19.6 s 12.2-14.7 INR in platelet poor plasma or blood by coagulation as say 1.7 0.8-1.4 Activated partial thromboplastin time (a PTT) in platelet poor plasma bycoagulation assay - 06/29/18 02:49 Activated partial thromboplastin time (a PTT) in platelet poor plasma bycoagulation assay 41 s 24-35 Comprehensive metabolic panel - 06/29/18 02:49 Serum or plasma sodium measurement (moles/volume) 127 mmol/L 135-145 Serum or plasma potassium measurement (moles/volume) 2.7 mmol/L 3.6-5.0 Serum or plasma chloride measurement (moles/volume) 88 mmol/L 98-107 Carbon dioxide 23 mmol/L 21-32 Serum or plasma anion gap determination (moles/volume) 16 mmol/L 5-14 Serum or plasma urea nitrogen measurement (mass/volume ) 7 mg/dL 7-18 Serum or plasma creatinine measurement (mass/volume) 0.71 mg/dL 0.60-1.30 Serum or plasma urea nitrogen/creatinine mass ratio 10 NRG Serum or plasma creatinine measurement w ith calculation of estimated glomerular filtration rate > NRG Serum or plasma glucose measurement (mass/volume) 103 mg/dL 70-105 Serum or plasma calcium measurement (mass/volume) 9.1 mg/dL 8.5-10.1 Serum or plasma total bilirubin measurement (mass/volu me) 0.9 mg/dL 0.1-1.0 Serum or plasma alkaline phosphatase garth surement (enzymatic activity/volume) 62 U/L 40-136 Serum or plasma aspartate aminotransfera se measurement (enzymatic activity/volume) 22 U/L 5-34 Serum or plasma alanine aminotransferase measurement (enzymatic activity/volume) 18 U/L 0-55 Serum or plasma protein measurement (mass/volume) 6.8 g/dL 6.4-8.2 Serum or plasma albumin measurement (mass/volume) 4.2 g/dL 3.2-4.5 CALCIUM CORRECTED 8.9 mg/dL 8.5-10.1 Magnesium - 06/29/18 02:49 Magnesium 2.4 mg/dL 1.8-2.4 Serum or plasma troponin i.cardiac measu rement (mass/volume) - 06/29/18 02:49 Serum or plasma troponin i.cardiac measurement (mass/v olume) < ng/mL <0.028 Complete urinalysis with reflex to cultu re - 06/29/18 03:28 Urine color determination YELLOW NRG Urine clarity determination CLEAR NR G Urine pH measurement by test strip 8 5-9 Specific gravity of urine by test strip 1.010 1.016-1.022 Urine protein assay by test strip, semi-quantitative NEGATIVE NEGATIVE Urine glucose detection by automated test strip NE GATIVE NEGATIVE Erythrocytes detection in urine sediment by light micr oscopy NEGATIVE NEGATIVE Urine ketones detection by automated test strip 2+ NEGATIVE Urine nitrite detection by test strip NEGATIVE NEGATIVE Urine total bilirubin detection by test strip NEGA TIVE NEGATIVE Urine urobilinogen measurement by automated test strip (mass/volume) NORMAL NORMAL Urine leukocyte esterase detection by dipstick 1+ NEGATIVE Automated urine sediment erythrocyte cou nt by microscopy (number/high power field) NONE NRG Automated urine sediment leukocyte count by microscopy (number/high power field) [HPF] NRG Bacteria detection in urine sediment by light microsco py FEW NRG Squamous epithelial cells detection in u rine sediment by light microscopy 2-5 NRG Crystals detection in urine sediment by light microsco py NONE NRG Casts detection in urine sediment by light microscopy NONE NRG Mucus detection in urine sediment by light microscopy NEGATIVE NRG Complete urinalysis with reflex to culture YES NRG Bacterial urine culture - 06/29/18 03:28 Bacterial urine culture SEE REPORT NRG COLONY COUNT . NRG Encounters ACCT No. Visit Date/Time Discharge Status Pt. Type Provider Facility Loc./Unit Complaint [id number] 04/06/2016 10:05:00 04/06/2016 10:50: 00 DIS Outpatient Stacy Gustafson C enter ER [id number] 05/13/2016 08:07:00 017 12:40:00 DIS Outpatient Dagmar OSORIO, [facility] & ER E.ENDO [id number] 05/13/2016 08:03:00 017 08:03:00 DIS Outpatient Emerita OSORIO, Edson Tim [facility] & ER E.RAC [id number] 09/15/2019 16:34:00 020 17:36:00 DIS Emergency STACY GUSTAFSON APRN [facility] ER R WRIST PAIN [id number] 11/30/2018 08:58:00 019 23:59:59 CLS Outpatient ARTEM BONILLA [facility] RAD SCREENING [id number] 06/29/2018 02:37:00 019 05:24:00 DIS Emergency KIRAN DOBSON MD [facility] ER SOB [id number] 04/27/2018 18:32:00 019 19:10:00 DIS Emergency STACY GUSTAFSON PRESCRIPTION CLERK LENSES [facility] ER L HAND CAT SCRATCH/ON B LOOD THINNERS [id number] 04/22/2018 14:53:00 019 23:59:59 CLS Outpatient BHARGAV PICKENS MD [facility] RAD COUGH,COPD [id number] 11/28/2017 10:39:00 018 23:59:59 CLS Outpatient LAUREN HOOK PRESCRIPTION CLERK LENSES [facility] RAD SCREENING [id number] 10/14/2017 15:51:00 018 23:59:59 CLS Preadmit LAUREN HOOK PRESCRIPTION CLERK LENSES [facility] RAD SCREENING [id number] 09/03/2017 10:56:00 018 12:15:00 DIS Emergency STACY GUSTAFSON PRESCRIPTION CLERK LENSES [facility] ER HEAD INJURY [id number] 07/16/2017 09:53:00 018 23:59:59 CLS Outpatient BHARGAV PICKENS MD [facility] RAD COUGH [id number] 10/10/2016 09:07:00 017 23:59:59 CLS Outpatient LAUREN HOOK PRESCRIPTION CLERK LENSES [facility] RAD SCREENING [id number] 08/21/2016 00:15:00 017 23:59:59 CLS Preadmit LIZ DELATORRE MD [facility] LAB MED MONITORING [id number] 08/13/2016 10:15:00 017 00:01:00 DIS Outpatient LIZ DELATORRE MD [facility] LAB MED MONITORING [id number] 05/02/2016 12:29:00 017 23:59:59 CLS Outpatient NORBERTO MURRIETA PA-C [facility] LAB I48.91 [id number] 03/18/2016 11:26:00 12/26/2 016 00:01:00 DIS Outpatient LIZ DELATORRE MD [facility] LAB MED MONITORING [id number] 04/03/2016 12:37:00 23:59:59 CLS Outpatient BHARGAV PICKENS MD [facility] RT DYSPNEA [id number] 03/21/2016 15:29:00 23:59:59 CLS Outpatient BHARGAV PICKENS MD [facility] RAD DYSPNEA [id number] 02/08/2016 08:39:00 23:59:59 CLS Outpatient CLARITA MERCEDES [facility] LAB E78.2, Z00.00, RO9.81, I10, I48.0, G47.62 [id number] 11/17/2015 12:21:00 00:01:00 DIS Outpatient LIZ DELATORRE MD [facility] LAB MED MONITORING [id number] 10/22/2015 12:59:00 12:59:00 CAN Preadmit ARSLAN PRITCHARD DO [facility] ER [id number] 10/22/2015 07:18:00 08:41:00 DIS Emergency ARSLAN PRITCHARD DO [facility] ER NOSE BLEEDS [id number] 10/05/2015 09:16:00 23:59:59 CLS Outpatient DOROTHY JAIN MD [facility] RAD SCREENING [id number] 08/04/2015 12:51:00 00:01:00 DIS Outpatient LIZ DELATORRE MD [facility] LAB MED MONITORING [id number] 05/02/2015 12:03:00 23:59:59 CLS Outpatient LIZ DELATORRE MD [facility] LAB MED MONITORING [id number] 01/09/2015 14:28:00 015 00:01:00 DIS Outpatient LIZ DELATORRE MD [facility] LAB MED MONITORING [id number] 11/21/2014 12:28:00 00:01:00 DIS Outpatient LIZ DELATORRE MD [facility] LAB MED MONITORING [id number] 09/13/2014 09:56:00 23:59:59 CLS Outpatient DOROTHY JAIN MD [facility] RAD SCREENING [id number] 07/12/2014 15:05:00 00:01:00 DIS Outpatient LIZ DELATORRE MD [facility] LAB MED MONITORING [id number] 02/02/2014 11:44:00 00:01:00 DIS Outpatient LIZ DELATORRE MD [facility] LAB MED MONITORING [id number] 12/14/2013 11:04:00 014 00:01:00 DIS Outpatient LIZ DELATORRE MD [facility] LAB MED MONITORING [id number] 08/23/2013 08:55:00 00:01:00 DIS Outpatient LIZ DELATORRE MD [facility] LAB MED MONITORING [id number] 08/23/2013 08:32:00 23:59:59 CLS Outpatient ALBINA MINOR MD [facility] RAD SCREENING [id number] 04/12/2013 14:51:00 00:01:00 DIS Outpatient LIZ DELATORRE MD [facility] LAB MED MONITORING [id number] 02/10/2013 07:58:00 23:59:59 CLS Outpatient ALBINA MINOR MD [facility] RAD LLQ PAIN [id number] 10/21/2012 09:59:00 00:01:00 DIS Outpatient LIZ DELATORRE MD [facility] LAB MED MONITORING [id number] 07/14/2012 14:02:00 00:01:00 DIS Outpatient LIZ DELATORRE MD [facility] LAB MED MONITORING [id number] 10/22/2015 08:43:00 Document Registration [id number] 07/14/2012 13:55:00 Document Registration [id number] 04/16/2012 10:43:00 Document Registration [id number] 12/19/2011 14:00:00 Document Registration [id number] 08/16/2011 10:10:00 Document Registration [id number] 05/24/2011 15:29:00 Document Registration [id number] 05/20/2011 13:47:00 Document Registration [id number] 01/11/2011 13:57:00 Document Registration [id number] 09/14/2010 13:04:00 Document Registration [id number] 06/14/2010 12:03:00 Document Registration [id number] 03/09/2010 16:19:00 Document Registration [id number] 02/23/2010 08:59:00 Document Registration [id number] 10/13/2009 10:36:00 Document Registration
== END 2019-09-15 17:36 | disposition home or self-care (01) ==
LOC: EDUNIT# 16:32 → ER 16:34
DX: S09.90XA Unspecified injury of head, initial encounter (principal); S60.211A Contusion of right wrist, initial encounter; W01.0XXA Fall on same level from slipping, tripping and stumbling without subsequent striking against object, initial encounter
CPT/HCPCS: 70450; 73090

== ENCOUNTER → 2020-01-24 | Outpatient (CLI) | payer MEDICARE, OTHER ==
--- NOTE | 2020-01-24 11:39 | Diagnostic Imaging Report ---
INDICATION: Routine screening. Comparison is made with prior mammogram 11/30/2018 and 11/28/2017. 2-D and 3-D bilateral screening mammography was performed with CAD. Both breasts are heterogeneously dense, limiting the sensitivity of mammography. There are benign parenchymal and vascular calcifications bilaterally. No dominant mass or malignant appearing microcalcifications are seen. Axillae are unremarkable. IMPRESSION: BI-RADS Category 2 No mammographic features suspicious for malignancy are identified. ACR BI-RADS Category 2: Benign findings. Result letter will be mailed to the patient. Note: At least 10% of breast cancer is not imaged by mammography. Dictated by: Dictated on workstation # [id number]
== END ==
LOC: RAD 09:53
PROVIDERS: ATTEND Physician Assistant
DX: Z12.31 Encounter for screening mammogram for malignant neoplasm of breast (principal)
CPT/HCPCS: 77063; 77067

== ENCOUNTER → 2021-03-02 | Outpatient (CLI) | payer MEDICARE, OTHER ==
[~2021-03-02] MED LIST changes: -MONT10TA26; +MONT10TA32; -OMEP40CA27; +OMEP40CA6; -VERA240T14; +VERA240T90
--- NOTE | 2021-03-02 13:49 | Diagnostic Imaging Report ---
INDICATION: Routine screening. Comparison is made with prior mammogram 01/24/2020 and 11/30/2018. 2-D and 3-D bilateral screening mammography was performed with CAD. Both breasts are heterogeneously dense, limiting the sensitivity of mammography. No mass or malignant-appearing microcalcifications are seen. There are vascular calcific effusions present. Axillae are unremarkable. IMPRESSION: No mammographic features suspicious for malignancy are identified. BI-RADS Category 1 ACR BI-RADS Category 1: Negative. Result letter will be mailed to the patient. Note: At least 10% of breast cancer is not imaged by mammography. Dictated by: Dictated on workstation # [id number]
== END ==
LOC: RAD 10:45
PROVIDERS: ATTEND Internal Medicine
DX: Z12.31 Encounter for screening mammogram for malignant neoplasm of breast (principal)
CPT/HCPCS: 77063; 77067

== ENCOUNTER → 2021-09-05 | Outpatient (CLI) | payer MEDICARE ==
[~2021-09-05] MED LIST changes: +MONT-40; -MONT10TA32
[2021-09-05 14:52] LABS: ABSOLUTE RETIC # 61 10e9/uL (24-90); BASOPHILS % (AUTO) 1 % (0-10); EOSINOPHILS # (AUTO) 0.1 10^3/uL (0.0-0.3); EOSINOPHILS % (AUTO) 1 % (0-10); HEMATOCRIT 39 % (35-52); HEMOGLOBIN 13.5 g/dL (11.5-16.0); LYMPHOCYTES # (AUTO) 1.1 10^3/uL (1.0-4.0); LYMPHOCYTES % (AUTO) 19 % (12-44); MEAN CORPUSCULAR HEMOGLOBIN 32 pg (25-34); MEAN CORPUSCULAR HGB CONC 34 g/dL (32-36); MEAN CORPUSCULAR VOLUME 92 fL (80-99); MEAN PLATELET VOLUME 9.5 fL (9.0-12.2); MONOCYTES # (AUTO) 0.7 10^3/uL (0.0-1.0); MONOCYTES % (AUTO) 13 % (0-12); NEUTROPHILS # (AUTO) 3.8 10^3/uL (1.8-7.8); NEUTROPHILS % (AUTO) 67 % (42-75); PLATELET COUNT 280 10^3/uL (130-400); RETICULOCYTE % 1.43 % (0.50-2.40); WHITE BLOOD COUNT 5.7 10^3/uL (4.3-11.0)
[2021-09-05 15:27] LABS: BASOPHILS % (MANUAL) 1 %; EOSINOPHILS % (MANUAL) 1 %; LYMPHOCYTES % (MANUAL) 19 %; MONOCYTES % (MANUAL) 10 %; NEUTROPHILS % (MANUAL) 69 %; RBC MORPH NORMAL
== END ==
LOC: LAB 14:25
PROVIDERS: ATTEND Internal Medicine
DX: D72.821 Monocytosis (symptomatic) (principal)
CPT/HCPCS: 36415; 85007; 85027; 85045; 85055

== ENCOUNTER 2021-12-07 12:22 | Emergency (ER) | payer MEDICARE ==
[~2021-12-07] VITALS: Ht 154.9 cm; Wt 56.2 kg
--- NOTE | 2021-12-07 13:17 | ED General ---
General Chief Complaint: Overdose Stated Complaint: OD Source of Information: Patient Exam Limitations: No Limitations History of Present Illness Date Seen by Provider: Dec 07, 2021 Time Seen by Provider: 12:34 Initial Comments This is 75-year-old woman presents to the emergency room with concern about flecainide overdose. She accidentally took 2 of her flecainide 50 mg tablets this morning. She took 1 at approximately 0930 and 1 at approximately 1130. She is asymptomatic. She contacted poison control who referred her to the ER. Apparently flecainide has unpredictable pharmacokinetics and may have widely variable effects at different doses on different patients. Poison control recommended a 6-hour monitoring starting from the most recent dose. They recommended EKGs every 2 hours to monitor for QRS prolongation. They recommended skipping tonight's dose. Dr. Pickens is her primary care provider. Dr. Santiago is her latexer. Allergies and Home Medications Allergies Coded Allergies: No Known Drug Allergies (Unverified , 10/22/15) Patient Home Medication List Home Medication List Reviewed: Yes Amoxicillin/Potassium Clav (Augmentin 875-125 Tablet) 1 Each Tablet, 1 EACH PO BID Prescribed by: STACY GUSTAFSON on 04/27/18 1905 Cephalexin (Keflex) 500 Mg Capsule, 500 MG PO QID Prescribed by: ARSLAN PRITCHARD on 10/22/15 0815 Estrogens Conjugated (Premarin) 30 Gm Cr, (Reported) Entered as Reported by: KILLIAN GILLIAM on 10/22/15 07 Fluticasone Propionate (Flovent Hfa 110 mcg) 1 Ea Aero, (Reported) Entered as Reported by: KILLIAN GILLIAM on 10/22/15 07 Montelukast Sodium (Montelukast Sodium) 10 Mg Tablet, (Reported) Entered as Reported by: KILLIAN GILLIAM on 10/22/15 07 Nitrofurantoin Monohyd/M-Cryst (Macrobid 100 mg Capsule) 100 Mg Capsule, 1 TAB PO BID Prescribed by: KIRAN DOBSON on 06/29/18 0503 Omeprazole (Omeprazole) 40 Mg Capsule., (Reported) Entered as Reported by: KILLIAN GILLIAM on 10/22/15 07 Verapamil HCl (Verapamil ER) 240 Mg Tablet.er, (Reported) Entered as Reported by: KILLIAN GILLIAM on 10/22/15 07 Warfarin Sodium (Warfarin Sodium) 5 Mg Tablet, (Reported) Entered as Reported by: KILLIAN GILLIAM on 10/22/15 0737 Review of Systems Review of Systems Constitutional: no symptoms reported EENTM: no symptoms reported Respiratory: no symptoms reported Cardiovascular: see HPI Gastrointestinal: no symptoms reported Genitourinary: no symptoms reported : No Musculoskeletal: no symptoms reported Skin: no symptoms reported Hematologic/Lymphatic: No Symptoms Reported Past Dzllhmw-Atrujn-Xacyvv Hx Patient Social History Tobacco Use?: No Smoking Status: Never a Smoker Smokeless Tobacco Frequency: Never a User Use of E-Cig and/or Vaping dev: No Use of E-Cig and/or Vaping Neville: Never a User Substance use?: No Alcohol Use?: No Pt feels they are or have been: No Immunizations Up To Date Tetanus Booster (TDap): Less than 5yrs Seasonal Allergies Seasonal Allergies: Yes Past Medical History Surgeries: Yes Gallbladder, Hysterectomy Respiratory: No Cardiac: Yes Atrial Fibrillation 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 oz. 56.071078dy; 23.00 BMI Method:Stated General Appearance: No Apparent Distress, WD/WN HEENT: Normal ENT Inspection Respiratory: Lungs Clear, Normal Breath Sounds, No Accessory Muscle Use Cardiovascular: Regular Rate, Rhythm, No Edema, No Murmur Extremity: Normal Inspection Neurologic/Psychiatric: Alert, Oriented x3, Normal Mood/Affect Skin: Normal Color, Warm/Dry Progress/Results/Core Measures Suspected Sepsis SIRS Temperature: Pulse: Respiratory Rate: Blood Pressure / Mean: Laboratory Tests 12/07/21 13:35: Creatinine 0.77 Results/Orders Lab Results Laboratory Tests Test 12/07/21 13:35 Range/Units Sodium Level 135 135-145 MMOL/L Potassium Level 3.6 3.6-5.0 MMOL/L Chloride Level 100 98-107 MMOL/L Carbon Dioxide Level 26 21-32 MMOL/L Anion Gap 9 5-14 MMOL/L Blood Urea Nitrogen 10 7-18 MG/DL Creatinine 0.77 0.60-1.30 MG/DL Estimat Glomerular Filtration Rate 79 BUN/Creatinine Ratio 13 Glucose Level 81 70-105 MG/DL Calcium Level 8.3 L 8.5-10.1 MG/DL My Orders Orders - CAMILLE ESPARZA MD Ekg Tracing (12/07/21 13:04) Monitor-Rhythm Ecg Trace Only (12/07/21 13:04) Ekg Tracing (12/07/21 13:17) Ekg Tracing (12/07/21 13:17) Basic Metabolic Panel (12/07/21 15:15) Ekg Tracing (12/07/21 17:35) Vital Signs/I&O 12/07/21 12:28 Temp 37.5 Pulse 98 Resp 18 B/P (MAP) 163/103 (123) O2 Delivery Room Air Capillary Refill : Progress Note #1: Time: 13:14 Progress Note I discussed the situation with the poison company controller who consulted the web user experience strategist. Although she took a fairly low dose and the half-life of flecainide is long, they are recommending a 6-hour observation with EKGs every 2 hours. Flecainide has unusual pharmacokinetics and requires special consideration according to the web user experience strategist. Progress Note #2: Progress Note Patient had an uneventful 6-hour observation period. Serial EKGs were performed and demonstrated no QRS prolongation. ECG EKG #1: EKG Time: 13:36 Rate: 86 Rhythm: Normal Sinus Intervals: Normal Comment Sinus rhythm with no ST elevation or depression. No abnormal intervals or axis deviation EKG #2: EKG Time: 16:01 Rate: 91 Rhythm: Normal Sinus Intervals: Normal Comment Normal sinus rhythm with no ST elevation or depression. No abnormal intervals or axis deviation. EKG #3: EKG Time: 17:39 Rate: 81 Rhythm: Normal Sinus Intervals: Normal Comment Normal sinus rhythm with no ST elevation or depression. No abnormal intervals or axis deviation. Departure Impression Primary Impression: Accidental medication overdose Qualified Codes: T50.901A - Poisoning by unspecified drugs, medicaments and biological substances, accidental (unintentional), initial encounter Disposition: 01 HOME, SELF-CARE Condition: Stable Departure-Patient Inst. Referrals: BHARGAV PICKENS MD (PCP/Family) Primary Care Physician Patient Instructions: Flecainide Add. Discharge Instructions: Skip tonight's dose of flecainide and resume your normal medication schedule in the morning. Return to the ER if you have any problems with heart rate or rhythm, lightheadedness, shortness of breath, chest pain, etc. All discharge instructions reviewed with patient and/or family. Voiced understanding. Copy Copies To 1: BHARGAV PICKENS MD Copies To 2: AZAEL SANTIAGO MD, JOSHUA T MD Dec 07, 2021 13:17
[2021-12-07 16:49] LABS: POTASSIUM 3.6 MMOL/L (3.6-5.0)
[2021-12-07 16:50] LABS: CALCIUM 8.3 MG/DL (8.5-10.1)
[2021-12-07 16:55] LABS: CREATININE SERUM 0.77 MG/DL (0.60-1.30)
[2021-12-07 18:05] VITALS: BP 127/68
== END 2021-12-07 18:05 | disposition home or self-care (01) ==
LOC: EDUNIT# 12:22 → ER 12:24
DX: T46.2X1A Poisoning by other antidysrhythmic drugs, accidental (unintentional), initial encounter (principal)
CPT/HCPCS: 36415; 80048; 93005; 93041

== ENCOUNTER → 2022-03-11 | Outpatient (CLI) | payer MEDICARE ==
--- NOTE | 2022-03-11 13:26 | Diagnostic Imaging Report ---
INDICATION: Routine screening. COMPARISON: 03/02/2021 and 01/24/2020. TECHNIQUE: 2D and 3D bilateral screening mammography was performed with CAD. FINDINGS: Both breasts are heterogeneously dense, limiting the sensitivity of mammography. The parenchymal pattern is stable. No mass or malignant-appearing microcalcifications are seen. There are benign parenchymal and vascular calcifications bilaterally. A cardiac loop recorder overlies the left axilla. IMPRESSION: No mammographic features suspicious for malignancy are identified. ACR BI-RADS Category 2: Benign findings. Result letter will be mailed to the patient. Note: At least 10% of breast cancer is not imaged by mammography. Dictated on workstation # [id number]
== END ==
LOC: RAD 09:56
PROVIDERS: ATTEND Internal Medicine
DX: Z12.31 Encounter for screening mammogram for malignant neoplasm of breast (principal)
CPT/HCPCS: 77063; 77067

== ENCOUNTER → 2022-08-07 | Outpatient (CLI) | payer MEDICARE ==
--- NOTE | 2022-08-07 15:58 | Diagnostic Imaging Report ---
INDICATION: Cough and palpitations. EXAMINATION: PA and lateral views of the chest were obtained at 3:51 p.m. COMPARISON: 06/29/2018. FINDINGS: Heart and mediastinal silhouette are normal in appearance. The lungs are clear. There is no pneumothorax or pleural fluid. IMPRESSION: Negative chest. Dictated by: Dictated on workstation # [id number]
== END ==
LOC: CARD 14:59
PROVIDERS: ATTEND Nurse Practitioner Family
DX: R05.9 Cough, unspecified (principal); R00.2 Palpitations; R06.00 Dyspnea, unspecified
CPT/HCPCS: 71046; 93005

== ENCOUNTER → 2023-03-13 | Outpatient (CLI) | payer MEDICARE ==
--- NOTE | 2023-03-13 15:49 | Diagnostic Imaging Report ---
INDICATION: Routine screening. COMPARISON: 03/11/2022 and 03/02/2021. TECHNIQUE: 2D and 3D bilateral screening mammography was performed with CAD. FINDINGS: Both breasts are heterogeneously dense, limiting the sensitivity of mammography. The parenchymal pattern is stable. There is no mass or malignant-appearing microcalcifications. Vascular calcifications are noted. A cardiac loop recorder overlies the left axillary tail. IMPRESSION: No mammographic features suspicious for malignancy are identified. ACR BI-RADS Category 2: Benign findings. Result letter will be mailed to the patient. Note: At least 10% of breast cancer is not imaged by mammography. Dictated by: Dictated on workstation # [id number]
== END ==
LOC: RAD 10:30
PROVIDERS: ATTEND Internal Medicine
DX: Z12.31 Encounter for screening mammogram for malignant neoplasm of breast (principal)
CPT/HCPCS: 77063; 77067